=== PATIENT | male | born 1950 | race Caucasian/White ===

== ENCOUNTER 2018-06-18 13:09 | Inpatient (IN) | payer BC, MEDICARE ==
--- NOTE | 2018-06-18 13:10 | PCM.HP ---
H&P History of Present Illness - General Date of Service: 06/18/18 Admit Problem/Dx: Admission Diagnosis/Problem Admission Diagnosis/Problem Osteomyelitis of left foot Source of Information: Patient History Limitations: Reports: No Limitations - History of Present Illness Initial Comments - Free Text/Narative: Patient is here and being admitted to [facility] for IV antibiotics for osteomyelitis of the left foot. He was admitted to [facility] in [facility] on 06/07/18. He has been there since receiving treatment for his osteomyelitis and heel ulcer. He has a stage 4 decubitus ulcer to his left heel, that requires wound vac treatment for healing. he has currently been having wound vac dressing changes MW. He has not pain or concerns with these. Due to history of diabetes and PVD , patient has minimal feeling to his LE. Patient notes that he had a similar ulceration to his left foot about 1.5 years ago. This healed without complication. He has a history of hypertension which is well controlled [facility] medication. As mentioned previously, he has a history of type II diabetes. He currently is not on any medications. He was on Levemir 45units every HS along [facility] Novolog 10u in the AM. He states that these medications were stopped due to BS being 100-140 during accu-checks. He takes no oral diabetic medication. We will continue to monitor his blood sugars and use sliding scale insulin as needed for elevated readings. Patient has some diarrhea since being in the hospital. This started at the onset of admission and initiation of oral antibiotics. He had stool cultures completed at [place] that returned negative for pathology. He was switched to IV antibiotics, placed on a pro-biotic and fiber supplement. This has helped with the loose stools. Patient will remain in [facility] for 6-8weeks for IV antibiotics and wound vac care. - Related Data Allergies/Adverse Reactions: Allergies Allergy/AdvReac Type Severity Reaction Status Date / Time atorvastatin [From Lipitor] Allergy Cannot Verified 06/18/18 11:11 Remember Penicillins Allergy Cannot Verified 06/18/18 11:11 Remember rosuvastatin [From Crestor] Allergy Cannot Verified 06/18/18 11:11 Remember simvastatin Allergy Cannot Verified 06/18/18 11:11 Remember Home Medications: Home Meds Acetaminophen/HYDROcodone [[place] 325-5 MG] 1 - 2 tab PO Q8H PRN 06/18/18 [ History] Multivitamin/Iron/Folic Acid [Centrum Adults Tablet] 1 tab PO DAILY 06/18/18 [ History] RX: Aspirin 81 mg PO DAILY 06/18/18 [History] RX: Carvedilol 25 mg PO BIDMEALS 06/18/18 [History] RX: Doxazosin [Cardura] 1 tab PO DAILY 06/18/18 [History] RX: Ferrous Sulfate 1 tab PO DAILY 06/18/18 [History] RX: Finasteride 5 mg PO DAILY 06/18/18 [History] RX: Magnesium Chloride [Mag-64] 2 tab PO DAILY 06/18/18 [History] RX: Nystatin 15 gm TP TID 06/18/18 [History] RX: Pantoprazole Sodium 40 mg PO BIDAC 06/18/18 [History] RX: Potassium Chloride [Klor-Con M20] 1 tab PO DAILY 06/18/18 [History] RX: Saccharomyces Boulardii [Florastor] 1 tab PO BID 06/18/18 [History] RX: Torsemide 20 mg PO BID 06/18/18 [History] RX: hydrALAZINE [Apresoline] 50 mg PO TID 06/18/18 [History] amLODIPine Besylate [Norvasc] 10 mg PO DAILY 06/18/18 [History] Past Medical History HEENT History: Reports: Impaired Vision Other HEENT History: glasses Cardiovascular History: Reports: None, Hypertension Respiratory History: Reports: None Gastrointestinal History: Reports: GERD, Hemorrhoids Genitourinary History: Reports: Chronic Renal Insuffiency Musculoskeletal History: Reports: Arthritis Neurological History: Reports: Neuropathy, Diabetic Psychiatric History: Reports: None Endocrine/Metabolic History: Reports: Diabetes, Type II, Obesity/BMI 30+ Hematologic History: Reports: Anemia Dermatologic History: Reports: Other (See Below) Other Dermatologic History: 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 - Infectious Disease History Infectious Disease History: Reports: Other (See Below) (Osteomyelitis to LLE) - Past Surgical History HEENT Surgical History: Reports: LASIK Other HEENT Surgeries/Procedures: left eye GI Surgical History: Reports: Colonoscopy Neurological Surgical History: Reports: C-Spine, Spinal Fusion Other Neurological Surgeries/Procedures: C-4-5-6 fusion, mesh tx 2005 Musculoskeletal Surgical History: Reports: Other (See Below) Other Musculoskeletal Surgeries/Procedures:: right foot 5th toe ampution 2016 Social & Family History - Family History Family Medical History: Unobtainable - Caffeine Use Caffeine Use: Reports: Coffee H&P Review of Systems - Review of Systems: Review Of Systems: See Below General: Reports: No Symptoms HEENT: Reports: No Symptoms, Glasses Pulmonary: Reports: No Symptoms Cardiovascular: Reports: No Symptoms Gastrointestinal: Reports: Diarrhea Genitourinary: Reports: No Symptoms Musculoskeletal: Reports: No Symptoms Skin: Reports: Wound Psychiatric: Reports: No Symptoms Neurological: Reports: No Symptoms Exam - Exam Exam: See Below - Exam General: Alert, Oriented, Cooperative HEENT: Conjunctiva Clear, EOMI, Hearing Intact, Mucosa Moist & [place], Pupils Equal, Pupils Reactive Neck: Supple, Trachea Midline Lungs: Clear to Auscultation, Normal Respiratory Effort Cardiovascular: Regular Rate, Regular Rhythm, Normal S1, Normal S2 GI/Abdominal Exam: Normal Bowel Sounds, Soft, Non-Tender, No Distention (Male) Exam: Deferred Rectal (Males) Exam: Deferred Back Exam: Normal Inspection Extremities: Non-Tender, Pedal Edema Peripheral Pulses: 2+: Radial (L), Radial (R), Posterior Tibial (L), Posterior Tibial (R), Dorsalis Pedis (L), Dorsalis Pedis (R) Skin: Warm, Dry, Intact, Wound Neurological: Normal Speech, Normal Tone Neuro Extensive - Mental Status: Alert, Oriented x3, Normal Mood/Affect, Normal Cognition, Memory Intact Psychiatric: Alert, Normal Affect, Normal Mood *Q Meaningful Use (ADM) - VTE Risk Assess *Q Each Risk Factor Represents 1 Point: Swollen Legs, Current, Obesity ( BMI > 25 kg/m2), Congestive heart failure (CHF) Total Score 1 Point Risk Factors: 3 Each Risk Factor Represents 2 Points: Age 60 - 74 Years Total Score 2 Point Risk Factors: 2 - Problem List (1) Osteomyelitis SNOMED Code(s): 63799751 ICD Code: M86.9 - OSTEOMYELITIS, UNSPECIFIED Status: Acute Priority: High Current Visit: Yes Onset Date: ~06/07/18 Problem Details: Continue to complete IV antibiotics per orders of ID at [place]. Wound vac will be in place and changed on MWF. measurements and healing progress will be monitored. Patient will remain asymptomatic for further signs of infection. Qualifiers: Osteomyelitis type: other chronic Osteomyelitis location: foot Laterality : left Qualified Code(s): M86.672 - Other chronic osteomyelitis, left ankle and foot (2) Hypertension SNOMED Code(s): 39002161 ICD Code: I10 - ESSENTIAL (PRIMARY) HYPERTENSION Status: Acute Priority: High Current Visit: Yes Problem Details: maintain a blood pressure of less than 140/90 with prescribed medication. Qualifiers: Hypertension type: essential hypertension Qualified Code(s): I10 - Essential (primary) hypertension (3) Diabetes SNOMED Code(s): 88070113 ICD Code: E11.9 - TYPE 2 DIABETES MELLITUS WITHOUT COMPLICATIONS Status: Acute Priority: High Current Visit: Yes Problem Details: Monitor patient' s blood sugars QID. Use sliding scale insulin as needed for elevated BS. patient is no longer on insulin, per discharge orders. His BS were 100-140 without medication. We will monitor this. Qualifiers: Diabetes mellitus type: type 2 Diabetes mellitus mcc insulin use: with supervisor word processing use Diabetes mellitus complication status: with skin complications Diabetes mellitus complication detail: with foot ulcer Qualified Code(s): E11.621 - Type 2 diabetes mellitus with foot ulcer; L97.509 - Non-pressure chronic ulcer of other part of unspecified foot with unspecified severity; Z79.4 - residential (current) use of insulin Problem List Initiated/Reviewed/Updated: No Orders Last 24hrs: Active Orders 24 hr Category Date Time Status Patient Status [ADT] Routine ADT 06/18/18 12:41 Ordered Height and Weight [RC] PER UNIT ROUTINE Care 06/18/18 12:48 Ordered Intake and Output [RC] ASDIRECTED Care 06/18/18 12:40 Ordered May Shower [RC] ASDIRECTED Care 06/18/18 12:40 Ordered Oxygen Therapy [RC] PRN Care 06/18/18 12:41 Ordered Up With Assistance [RC] ASDIRECTED Care 06/18/18 12:40 Ordered VTE/DVT Education [RC] PER UNIT ROUTINE Care 06/18/18 12:41 Ordered Vital Signs [RC] PER UNIT ROUTINE Care 06/18/18 12:41 Ordered OT Evaluation and Treatment [CONS] Routine Cons 06/18/18 12:40 Ordered PT Evaluation and Treatment [CONS] Routine Cons 06/18/18 12:40 Ordered [employer] Diet [DIET] Diet 06/18/18 Dinner Ordered Resuscitation Status Routine Resus Stat 06/18/18 12:40 Ordered
[2018-06-18] MEDS: Nystatin Topical Powder 15 GM Bottle TOP SCH (17:22)
[2018-06-18] MEDS: Lactobacillus Rhamnosus GG (Probiotic) Cap PO SCH (17:22)
[2018-06-18] MEDS: Pantoprazole 40 MG Tab.CR PO SCH (17:23)
[2018-06-18] MEDS: hydrALAZINE 50 MG Tab PO SCH (17:23)
[2018-06-18] MEDS: Carvedilol 25 MG Tab PO SCH (17:23)
[2018-06-18] MEDS: Insulin Regular, Human 100 Units/ML 3 ML Vial SUBCUT SCH (20:54)
[2018-06-18] MEDS: Sodium Chloride 0.9% 10 ML Syringe FLUSH SCH (20:55)
[2018-06-19] MEDS: Potassium Chloride 20 MEQ Tab.ER PO SCH (08:05)
[2018-06-19] MEDS: amLODIPine 5 MG Tab PO SCH (08:05)
[2018-06-19] MEDS: Finasteride 5 MG Tab PO SCH (08:06)
[2018-06-19] MEDS: hydrALAZINE 50 MG Tab PO SCH ×3 (08:06→17:35)
[2018-06-19] MEDS: Carvedilol 25 MG Tab PO SCH ×2 (08:06→17:32)
[2018-06-19] MEDS: Doxazosin 4 MG Tab PO SCH (08:07)
[2018-06-19] MEDS: Aspirin 81 MG Tab.Chew PO SCH (08:07)
[2018-06-19] MEDS: Multivitamin Tab PO SCH (08:07)
[2018-06-19] MEDS: Lactobacillus Rhamnosus GG (Probiotic) Cap PO SCH ×2 (08:07→17:30)
[2018-06-19] MEDS: Ferrous Sulfate 325 MG Tab PO SCH (08:07)
[2018-06-19] MEDS: Pantoprazole 40 MG Tab.CR PO SCH ×2 (08:07→17:30)
[2018-06-19] MEDS: Sodium Chloride 0.9% 10 ML Syringe FLUSH SCH ×4 (08:09→20:43)
[2018-06-19] MEDS: Nystatin Topical Powder 15 GM Bottle TOP SCH ×3 (08:09→17:31)
[2018-06-19] MEDS: Insulin Regular, Human 100 Units/ML 3 ML Vial SUBCUT SCH ×5 (08:11→20:40)
[2018-06-19] MEDS ORDERED: Ertapenem 1 GM Vial IM SCH (12:00)
[2018-06-19] MEDS: Ertapenem 1 GM in Sodium Chloride 0.9% 100 ML IV SCH (12:05)
[2018-06-19] MEDS: Magnesium Oxide 400 MG Tab PO SCH (12:39)
[2018-06-19] MEDS: Linezolid 600 MG in Premix Bag 1 BAG IV SCH (20:39)
[2018-06-20] MEDS: Magnesium Oxide 400 MG Tab PO SCH (07:22)
[2018-06-20] MEDS: Nystatin Topical Powder 15 GM Bottle TOP SCH ×3 (07:22→17:39)
[2018-06-20] MEDS: Insulin Regular, Human 100 Units/ML 3 ML Vial SUBCUT SCH ×4 (07:22→20:59)
[2018-06-20] MEDS: Lactobacillus Rhamnosus GG (Probiotic) Cap PO SCH ×2 (07:23→17:38)
[2018-06-20] MEDS: Multivitamin Tab PO SCH (07:23)
[2018-06-20] MEDS: Potassium Chloride 20 MEQ Tab.ER PO SCH (07:24)
[2018-06-20] MEDS: Finasteride 5 MG Tab PO SCH (07:24)
[2018-06-20] MEDS: Pantoprazole 40 MG Tab.CR PO SCH ×2 (07:24→17:38)
[2018-06-20] MEDS: Carvedilol 25 MG Tab PO SCH ×2 (07:24→17:37)
[2018-06-20] MEDS: hydrALAZINE 50 MG Tab PO SCH ×3 (07:25→17:38)
[2018-06-20] MEDS: amLODIPine 5 MG Tab PO SCH (07:25)
[2018-06-20] MEDS: Ferrous Sulfate 325 MG Tab PO SCH (07:25)
[2018-06-20] MEDS: Aspirin 81 MG Tab.Chew PO SCH (07:25)
[2018-06-20] MEDS: Doxazosin 4 MG Tab PO SCH (07:26)
[2018-06-20] MEDS: Sodium Chloride 0.9% 10 ML Syringe FLUSH SCH ×5 (07:29→20:54)
[2018-06-20] MEDS: Linezolid 600 MG in Premix Bag 1 BAG IV SCH ×2 (07:29→20:52)
[2018-06-20] MEDS: Ertapenem 1 GM in Sodium Chloride 0.9% 100 ML IV SCH (11:45)
[2018-06-21 07:33] LABS: HEMOGLOBIN A1C 6.2 % (4.3-5.7)
[2018-06-21] MEDS: Linezolid 600 MG in Premix Bag 1 BAG IV SCH ×2 (08:48→20:42)
[2018-06-21] MEDS: Finasteride 5 MG Tab PO SCH (08:49)
[2018-06-21] MEDS: Potassium Chloride 20 MEQ Tab.ER PO SCH (08:49)
[2018-06-21] MEDS: Carvedilol 25 MG Tab PO SCH ×2 (08:49→17:44)
[2018-06-21] MEDS: amLODIPine 5 MG Tab PO SCH (08:49)
[2018-06-21] MEDS: Ferrous Sulfate 325 MG Tab PO SCH (08:49)
[2018-06-21] MEDS: Sodium Chloride 0.9% 10 ML Syringe FLUSH SCH ×4 (08:49→20:42)
[2018-06-21] MEDS: Doxazosin 4 MG Tab PO SCH (08:50)
[2018-06-21] MEDS: Multivitamin Tab PO SCH (08:50)
[2018-06-21] MEDS: Lactobacillus Rhamnosus GG (Probiotic) Cap PO SCH ×2 (08:50→17:44)
[2018-06-21] MEDS: hydrALAZINE 50 MG Tab PO SCH ×3 (08:50→17:44)
[2018-06-21] MEDS: Pantoprazole 40 MG Tab.CR PO SCH ×2 (08:50→17:43)
[2018-06-21] MEDS: Aspirin 81 MG Tab.Chew PO SCH (08:50)
[2018-06-21] MEDS: Insulin Regular, Human 100 Units/ML 3 ML Vial SUBCUT SCH ×4 (08:51→20:42)
[2018-06-21] MEDS: Nystatin Topical Powder 15 GM Bottle TOP SCH ×3 (08:52→17:45)
[2018-06-21] MEDS: Magnesium Oxide 400 MG Tab PO SCH (08:52)
[2018-06-21] MEDS: Ertapenem 1 GM in Sodium Chloride 0.9% 100 ML IV SCH (15:03)
[2018-06-22] MEDS: Linezolid 600 MG in Premix Bag 1 BAG IV SCH ×2 (08:07→19:40)
[2018-06-22] MEDS: Pantoprazole 40 MG Tab.CR PO SCH ×2 (08:08→17:54)
[2018-06-22] MEDS: Sodium Chloride 0.9% 10 ML Syringe FLUSH SCH ×3 (08:08→19:42)
[2018-06-22] MEDS: Nystatin Topical Powder 15 GM Bottle TOP SCH ×3 (08:08→17:55)
[2018-06-22] MEDS: hydrALAZINE 50 MG Tab PO SCH ×4 (08:09→17:54)
[2018-06-22] MEDS: Potassium Chloride 20 MEQ Tab.ER PO SCH (08:09)
[2018-06-22] MEDS: amLODIPine 5 MG Tab PO SCH (08:11)
[2018-06-22] MEDS: Carvedilol 25 MG Tab PO SCH ×2 (08:11→17:54)
[2018-06-22] MEDS: Ferrous Sulfate 325 MG Tab PO SCH (08:11)
[2018-06-22] MEDS: Finasteride 5 MG Tab PO SCH (08:12)
[2018-06-22] MEDS: Aspirin 81 MG Tab.Chew PO SCH (08:12)
[2018-06-22] MEDS: Multivitamin Tab PO SCH (08:12)
[2018-06-22] MEDS: Lactobacillus Rhamnosus GG (Probiotic) Cap PO SCH ×2 (08:12→17:53)
[2018-06-22] MEDS: Doxazosin 4 MG Tab PO SCH (08:12)
[2018-06-22] MEDS: Magnesium Oxide 400 MG Tab PO SCH (08:13)
[2018-06-22] MEDS: Insulin Regular, Human 100 Units/ML 3 ML Vial SUBCUT SCH ×4 (08:13→20:03)
[2018-06-22] MEDS: Ertapenem 1 GM in Sodium Chloride 0.9% 100 ML IV SCH (12:50)
[2018-06-23] MEDS: Multivitamin Tab PO SCH (08:45)
[2018-06-23] MEDS: Sodium Chloride 0.9% 10 ML Syringe FLUSH SCH (08:45)
[2018-06-23] MEDS: Doxazosin 4 MG Tab PO SCH (08:45)
[2018-06-23] MEDS: amLODIPine 5 MG Tab PO SCH (08:45)
[2018-06-23] MEDS: Aspirin 81 MG Tab.Chew PO SCH (08:46)
[2018-06-23] MEDS: Pantoprazole 40 MG Tab.CR PO SCH ×2 (08:46→17:13)
[2018-06-23] MEDS: Ferrous Sulfate 325 MG Tab PO SCH (08:46)
[2018-06-23] MEDS: Potassium Chloride 20 MEQ Tab.ER PO SCH (08:46)
[2018-06-23] MEDS: Magnesium Oxide 400 MG Tab PO SCH (08:46)
[2018-06-23] MEDS: hydrALAZINE 50 MG Tab PO SCH ×3 (08:46→17:13)
[2018-06-23] MEDS: Lactobacillus Rhamnosus GG (Probiotic) Cap PO SCH ×2 (08:47→17:12)
[2018-06-23] MEDS: Finasteride 5 MG Tab PO SCH (08:47)
[2018-06-23] MEDS: Carvedilol 25 MG Tab PO SCH ×2 (08:47→17:12)
[2018-06-23] MEDS: Insulin Regular, Human 100 Units/ML 3 ML Vial SUBCUT SCH ×4 (08:48→20:38)
[2018-06-23] MEDS: Nystatin Topical Powder 15 GM Bottle TOP SCH ×3 (08:48→20:37)
[2018-06-23] MEDS: Linezolid 600 MG in Premix Bag 1 BAG IV SCH ×2 (08:49→20:37)
[2018-06-23] MEDS: Ertapenem 1 GM in Sodium Chloride 0.9% 100 ML IV SCH (12:32)
[2018-06-24] MEDS: Sodium Chloride 0.9% 10 ML Syringe FLUSH SCH ×2 (08:42→08:47)
[2018-06-24] MEDS: Linezolid 600 MG in Premix Bag 1 BAG IV SCH ×2 (08:42→20:55)
[2018-06-24] MEDS: amLODIPine 5 MG Tab PO SCH (08:43)
[2018-06-24] MEDS: Multivitamin Tab PO SCH (08:43)
[2018-06-24] MEDS: Insulin Regular, Human 100 Units/ML 3 ML Vial SUBCUT SCH ×4 (08:43→20:55)
[2018-06-24] MEDS: Aspirin 81 MG Tab.Chew PO SCH (08:43)
[2018-06-24] MEDS: Doxazosin 4 MG Tab PO SCH (08:44)
[2018-06-24] MEDS: Ferrous Sulfate 325 MG Tab PO SCH (08:44)
[2018-06-24] MEDS: hydrALAZINE 50 MG Tab PO SCH ×3 (08:44→18:27)
[2018-06-24] MEDS: Lactobacillus Rhamnosus GG (Probiotic) Cap PO SCH ×2 (08:44→18:26)
[2018-06-24] MEDS: Magnesium Oxide 400 MG Tab PO SCH (08:44)
[2018-06-24] MEDS: Potassium Chloride 20 MEQ Tab.ER PO SCH (08:44)
[2018-06-24] MEDS: Finasteride 5 MG Tab PO SCH (08:44)
[2018-06-24] MEDS: Pantoprazole 40 MG Tab.CR PO SCH ×2 (08:45→18:26)
[2018-06-24] MEDS: Nystatin Topical Powder 15 GM Bottle TOP SCH ×3 (08:45→18:28)
[2018-06-24] MEDS: Carvedilol 25 MG Tab PO SCH ×2 (08:45→18:26)
[2018-06-24] MEDS: Ertapenem 1 GM in Sodium Chloride 0.9% 100 ML IV SCH (12:13)
[2018-06-25] MEDS: Linezolid 600 MG in Premix Bag 1 BAG IV SCH ×2 (07:47→20:51)
[2018-06-25] MEDS: amLODIPine 5 MG Tab PO SCH (07:47)
[2018-06-25] MEDS: Aspirin 81 MG Tab.Chew PO SCH (07:48)
[2018-06-25] MEDS: Carvedilol 25 MG Tab PO SCH ×2 (07:48→17:25)
[2018-06-25] MEDS: Ferrous Sulfate 325 MG Tab PO SCH (07:48)
[2018-06-25] MEDS: Multivitamin Tab PO SCH (07:48)
[2018-06-25] MEDS: Finasteride 5 MG Tab PO SCH (07:48)
[2018-06-25] MEDS: hydrALAZINE 50 MG Tab PO SCH ×3 (07:48→17:25)
[2018-06-25] MEDS: Magnesium Oxide 400 MG Tab PO SCH (07:48)
[2018-06-25] MEDS: Pantoprazole 40 MG Tab.CR PO SCH ×2 (07:48→17:25)
[2018-06-25] MEDS: Lactobacillus Rhamnosus GG (Probiotic) Cap PO SCH ×2 (07:48→17:25)
[2018-06-25] MEDS: Sodium Chloride 0.9% 10 ML Syringe FLUSH SCH ×3 (07:49→20:58)
[2018-06-25] MEDS: Insulin Regular, Human 100 Units/ML 3 ML Vial SUBCUT SCH ×4 (07:49→20:52)
[2018-06-25] MEDS: Potassium Chloride 20 MEQ Tab.ER PO SCH (07:49)
[2018-06-25] MEDS: Doxazosin 4 MG Tab PO SCH (07:49)
[2018-06-25] MEDS: Nystatin Topical Powder 15 GM Bottle TOP SCH ×3 (08:02→20:51)
[2018-06-25] MEDS: Ertapenem 1 GM in Sodium Chloride 0.9% 100 ML IV SCH (12:15)
[2018-06-25] MEDS ORDERED: Nystatin Topical Powder 15 GM Bottle TOP PRN (23:06)
[2018-06-26] MEDS: Doxazosin 4 MG Tab PO SCH (08:23)
[2018-06-26] MEDS: Multivitamin Tab PO SCH (08:23)
[2018-06-26] MEDS: Aspirin 81 MG Tab.Chew PO SCH (08:24)
[2018-06-26] MEDS: Finasteride 5 MG Tab PO SCH (08:24)
[2018-06-26] MEDS: Lactobacillus Rhamnosus GG (Probiotic) Cap PO SCH ×2 (08:24→17:17)
[2018-06-26] MEDS: Ferrous Sulfate 325 MG Tab PO SCH (08:24)
[2018-06-26] MEDS: Magnesium Oxide 400 MG Tab PO SCH (08:24)
[2018-06-26] MEDS: amLODIPine 5 MG Tab PO SCH (08:24)
[2018-06-26] MEDS: Potassium Chloride 20 MEQ Tab.ER PO SCH (08:24)
[2018-06-26] MEDS: Linezolid 600 MG in Premix Bag 1 BAG IV SCH ×2 (08:25→21:17)
[2018-06-26] MEDS: Carvedilol 25 MG Tab PO SCH ×2 (08:25→17:18)
[2018-06-26] MEDS: Pantoprazole 40 MG Tab.CR PO SCH ×2 (08:25→17:18)
[2018-06-26] MEDS: hydrALAZINE 50 MG Tab PO SCH ×3 (08:25→17:17)
[2018-06-26] MEDS: Sodium Chloride 0.9% 10 ML Syringe FLUSH SCH ×3 (08:26→21:18)
[2018-06-26] MEDS: Insulin Regular, Human 100 Units/ML 3 ML Vial SUBCUT SCH ×4 (08:26→21:18)
[2018-06-26] MEDS ORDERED: Lactated Ringers 1,000 ML IV SCH (12:00)
--- NOTE | 2018-06-26 14:05 | PCM.SN ---
- Free Text/Narrative Note: Per the report of the nursing staff, patient is having auditory and visual hallucinations. he is seeing people who are not there and hearing dog barking when nursing staff report the room is quiet. Please refer to their documentation as well. Call was placed to Infectious Disease at [facility] in [place] to discuss adverse reaction to medication. ID provider thought this may be related to the Invanz, as hallucinations are an adverse reaction. Based on her review of the chart, we decided to discontinue the Invanz and start Metronidazole 500mg TID. These orders are to continue until he follows up with ID in 1 week. We are to monitor his cognition and report any further degeneration to ID for further evaluation. .
[2018-06-26] MEDS: metroNIDAZOLE 500 MG Tab PO SCH (17:18)
[2018-06-27] MEDS: amLODIPine 5 MG Tab PO SCH (08:13)
[2018-06-27] MEDS: Finasteride 5 MG Tab PO SCH (08:14)
[2018-06-27] MEDS: Magnesium Oxide 400 MG Tab PO SCH (08:14)
[2018-06-27] MEDS: Aspirin 81 MG Tab.Chew PO SCH (08:14)
[2018-06-27] MEDS: Doxazosin 4 MG Tab PO SCH (08:14)
[2018-06-27] MEDS: Multivitamin Tab PO SCH (08:14)
[2018-06-27] MEDS: Potassium Chloride 20 MEQ Tab.ER PO SCH (08:14)
[2018-06-27] MEDS: Ferrous Sulfate 325 MG Tab PO SCH (08:14)
[2018-06-27] MEDS: Pantoprazole 40 MG Tab.CR PO SCH (08:14)
[2018-06-27] MEDS: Lactobacillus Rhamnosus GG (Probiotic) Cap PO SCH (08:15)
[2018-06-27] MEDS: Carvedilol 25 MG Tab PO SCH (08:15)
[2018-06-27] MEDS: hydrALAZINE 50 MG Tab PO SCH (08:15)
[2018-06-27] MEDS: metroNIDAZOLE 500 MG Tab PO SCH (08:16)
[2018-06-27] MEDS: Insulin Regular, Human 100 Units/ML 3 ML Vial SUBCUT SCH (08:16)
[2018-06-27] MEDS: Linezolid 600 MG in Premix Bag 1 BAG IV SCH (08:16)
[2018-06-27 08:17] VITALS: BP 181/88
[2018-06-27] MEDS: Sodium Chloride 0.9% 10 ML Syringe FLUSH SCH (08:17)
[2018-06-27] MEDS ORDERED: Lactated Ringers 1,000 ML IV SCH (11:00)
--- NOTE | 2018-06-27 14:24 | PCM.DCSUM1 ---
Discharge Summary - Hospital Course Free Text/Narrative:: Patient was admitted for [facility] care on 06/18/18. His diagnoses were osteomyelitis with wound vac application to the left heel wound. He was receiving Zyvox and Invanz for IV antibiotics through his PICC line. He was tolerating these well. When he arrives, he was asymptomatic. He was cognitively intact without any physical complaints. Over the last 3 days, he started having visual and auditory hallucinations. ID was consulted at [facility] and discontinued the Invanz as this may be an adverse reaction. We were to monitor cognitive status for improvement. He has slowly continued to decline cognitively with continued hallucinations. He was thought to have some left sided weakness. A CT of head was completed to rule out stroke like symptoms. CT scan was negative. Abnormal labs show elevated D-dimer which would be related to IV antibiotics and wound. BNP was elevated as well, creatitine was high but this is his normal. We reviewed case with ID and ER physician at [facility] in [place]. Both of them agreed that he would benefit from further evaluation with imaging we don't have available here due to creatinine level. Patient will be transferred by ambulance to ER at [facility], they are aware. Diagnosis: Stroke: No - Discharge Data Discharge Date: 06/27/18 Discharge Disposition: DC/Tfer to Acute Hospital 02 Condition: - Discharge Diagnosis/Problem(s) (1) Osteomyelitis SNOMED Code(s): 69299243 ICD Code: M86.9 - OSTEOMYELITIS, UNSPECIFIED Status: Acute Priority: High Onset Date: ~06/07/18 Problem Details: Continue to complete IV antibiotics per orders of ID at [place]. Wound vac will be in place and changed on [facility]. measurements and healing progress will be monitored. Patient will remain asymptomatic for further signs of infection. Qualifiers: Osteomyelitis type: other chronic Osteomyelitis location: foot Laterality : left Qualified Code(s): M86.672 - Other chronic osteomyelitis, left ankle and foot (2) Hypertension SNOMED Code(s): 67847167 ICD Code: I10 - ESSENTIAL (PRIMARY) HYPERTENSION Status: Acute Priority: High Problem Details: maintain a blood pressure of less than 140/90 with prescribed medication. Qualifiers: Hypertension type: essential hypertension Qualified Code(s): I10 - Essential (primary) hypertension (3) Diabetes SNOMED Code(s): 81437235 ICD Code: E11.9 - TYPE 2 DIABETES MELLITUS WITHOUT COMPLICATIONS Status: Acute Priority: High Problem Details: Monitor patient's blood sugars QID. Use sliding scale insulin as needed for elevated BS. patient is no longer on insulin, per discharge orders. His BS were 100-140 without medication. We will monitor this. Qualifiers: Diabetes mellitus type: type 2 Diabetes mellitus internet retailer insulin use: with internet retailer use Diabetes mellitus complication status: with skin complications Diabetes mellitus complication detail: with foot ulcer Qualified Code(s): E11.621 - Type 2 diabetes mellitus with foot ulcer; L97.509 - Non-pressure chronic ulcer of other part of unspecified foot with unspecified severity; Z79.4 - prison (current) use of insulin - Patient Summary/Data Consults: Consultations 06/18/18 12:40 OT Evaluation and Treatment [CONS] Routine PT Evaluation and Treatment [CONS] Routine - Patient Instructions Diet: Regular Diet as Tolerated Activity: As Tolerated Driving: Do Not Drive Showering/Bathing: May Shower - Discharge Plan *PRESCRIPTION DRUG MONITORING PROGRAM REVIEWED*: Not Applicable *COPY OF PRESCRIPTION DRUG MONITORING REPORT IN PATIENT MIL[place]: Not Applicable Home Medications: Home Meds Acetaminophen/HYDROcodone [[place] 325-5 MG] 1 - 2 tab PO Q8H PRN 06/18/18 [ History] Aspirin 81 mg PO DAILY 06/18/18 [History] Carvedilol 25 mg PO BIDMEALS 06/18/18 [History] Doxazosin [Cardura] 1 tab PO DAILY 06/18/18 [History] Ertapenem [INVanz] 1 gm IM DAILY@1200 06/18/18 [History] Ferrous Sulfate 1 tab PO DAILY 06/18/18 [History] Finasteride 5 mg PO DAILY 06/18/18 [History] Linezolid [Zyvox] 600 mg IV Q12HR 06/18/18 [History] Magnesium Chloride [Mag-64] 2 tab PO DAILY 06/18/18 [History] Multivitamin/Iron/Folic Acid [Centrum Adults Tablet] 1 tab PO DAILY 06/18/18 [ History] Nystatin 15 gm TP TID 06/18/18 [History] Pantoprazole Sodium 40 mg PO BIDAC 06/18/18 [History] Potassium Chloride [Klor-Con M20] 1 tab PO DAILY 06/18/18 [History] Saccharomyces Boulardii [Florastor] 1 tab PO BID 06/18/18 [History] Sodium Chloride 0.9% [Saline Flush] 10 ml FLUSH ASDIRECTED 06/18/18 [History] Torsemide 20 mg PO BID 06/18/18 [History] amLODIPine Besylate [Norvasc] 10 mg PO DAILY 06/18/18 [History] hydrALAZINE [Apresoline] 50 mg PO TID 06/18/18 [History] - Discharge Summary/Plan Comment DC Time >30 min.: No - General Info Date of Service: 06/27/18 Functional Status: Reports: Pain Controlled, Tolerating Diet - Review of Systems General: Reports: No Symptoms HEENT: Reports: Visual Changes Pulmonary: Reports: No Symptoms Cardiovascular: Reports: No Symptoms Gastrointestinal: Reports: No Symptoms Genitourinary: Reports: No Symptoms Musculoskeletal: Reports: No Symptoms Skin: Reports: No Symptoms Neurological: Reports: Confusion, Weakness Psychiatric: Reports: Confusion, Hallucinations - Patient Data Vitals - Most Recent: Last Vital Signs Temp 97.9 F 06/27/18 08:00 Pulse 89 06/27/18 08:15 Resp 19 06/27/18 08:00 BP 181/88 H 06/27/18 08:15 Pulse Ox 94 L 06/27/18 08:00 Weight - Most Recent: 260 lb 4.796 oz I&O - Last 24 hours: Intake & Output 06/26/18 06/27/18 06/27/18 22:59 06:59 14:59 Intake Total 1910 360 Output Total 500 600 Balance 1410 -600 360 Lab Results - Last 24 hrs: Laboratory Results - last 24 hr 06/26/18 06/26/18 06/27/18 Range/Units 16:39 20:24 07:39 WBC (4.0-10.2) K/uL RBC (4.33-5.41) M/uL Hgb (13.1-16.8) g/dL Hct (39.0-49.0) % MCV (84.0-98.0) fL MCH (28.2-33.3) pg MCHC (31.7-36.0) g/dL RDW (11.2-14.1) % Plt Count (150-350) K/uL Neut % (Auto) (45.0-80.0) % Lymph % (Auto) (10.0-50.0) % [place] % (Auto) (2.0-14.0) % Eos % (Auto) (0.0-5.0) % Baso % (Auto) (0.0-2.0) % Neut # (Auto) (1.40-7.00) K/uL Lymph # (Auto) (0.50-3.50) K/uL [place] # (Auto) (0.00-1.00) K/uL Eos # (Auto) (0.00-0.50) K/uL Baso # (Auto) (0.00-0.20) K/uL D-Dimer, Quantitative (0-400) ng/mL Sodium (136-145) mmol/L Potassium (3.5-5.1) mmol/L Chloride (98-107) mmol/L Carbon Dioxide (21.0-32.0) mmol/L BUN (7-18) mg/dL Creatinine (0.51-1.17) mg/dL Est Cr Clr Drug Dosing mL/min Estimated GFR (MDRD) mL/min Glucose (74-106) mg/dL POC Glucose 89 160 H 79 (65-110) mg/dl Lactic Acid (0.4-2.0) mmol/L Calcium (8.5-10.1) mg/dL NT-Pro-B Natriuret Pep (0-125) pg/mL 06/27/18 06/27/18 06/27/18 Range/Units 08:52 08:52 08:52 WBC 7.3 (4.0-10.2) K/uL RBC 2.78 L (4.33-5.41) M/uL Hgb 8.0 L (13.1-16.8) g/dL Hct 24.5 L* (39.0-49.0) % MCV 88.1 (84.0-98.0) fL MCH 28.8 (28.2-33.3) pg MCHC 32.7 (31.7-36.0) g/dL RDW 15.7 H (11.2-14.1) % Plt Count 206 (150-350) K/uL Neut % (Auto) 67.6 (45.0-80.0) % Lymph % (Auto) 18.5 (10.0-50.0) % [place] % (Auto) 8.1 (2.0-14.0) % Eos % (Auto) 5.1 H (0.0-5.0) % Baso % (Auto) 0.7 (0.0-2.0) % Neut # (Auto) 4.92 (1.40-7.00) K/uL Lymph # (Auto) 1.35 (0.50-3.50) K/uL [place] # (Auto) 0.59 (0.00-1.00) K/uL Eos # (Auto) 0.37 (0.00-0.50) K/uL Baso # (Auto) 0.05 (0.00-0.20) K/uL D-Dimer, Quantitative 790 H (0-400) ng/mL Sodium 142 (136-145) mmol/L Potassium 4.2 (3.5-5.1) mmol/L Chloride 107 (98-107) mmol/L Carbon Dioxide 23.9 (21.0-32.0) mmol/L BUN 21 H (7-18) mg/dL Creatinine 2.43 H (0.51-1.17) mg/dL Est Cr Clr Drug Dosing 31.29 mL/min Estimated GFR (MDRD) 27 mL/min Glucose 120 H (74-106) mg/dL POC Glucose (65-110) mg/dl Lactic Acid (0.4-2.0) mmol/L Calcium 8.5 (8.5-10.1) mg/dL NT-Pro-B Natriuret Pep 1884 H (0-125) pg/mL 06/27/18 06/27/18 Range/Units 08:52 11:41 WBC (4.0-10.2) K/uL RBC (4.33-5.41) M/uL Hgb (13.1-16.8) g/dL Hct (39.0-49.0) % MCV (84.0-98.0) fL MCH (28.2-33.3) pg MCHC (31.7-36.0) g/dL RDW (11.2-14.1) % Plt Count (150-350) K/uL Neut % (Auto) (45.0-80.0) % Lymph % (Auto) (10.0-50.0) % [place] % (Auto) (2.0-14.0) % Eos % (Auto) (0.0-5.0) % Baso % (Auto) (0.0-2.0) % Neut # (Auto) (1.40-7.00) K/uL Lymph # (Auto) (0.50-3.50) K/uL [place] # (Auto) (0.00-1.00) K/uL Eos # (Auto) (0.00-0.50) K/uL Baso # (Auto) (0.00-0.20) K/uL D-Dimer, Quantitative (0-400) ng/mL Sodium (136-145) mmol/L Potassium (3.5-5.1) mmol/L Chloride (98-107) mmol/L Carbon Dioxide (21.0-32.0) mmol/L BUN (7-18) mg/dL Creatinine (0.51-1.17) mg/dL Est Cr Clr Drug Dosing mL/min Estimated GFR (MDRD) mL/min Glucose (74-106) mg/dL POC Glucose 99 (65-110) mg/dl Lactic Acid 1.2 (0.4-2.0) mmol/L Calcium (8.5-10.1) mg/dL NT-Pro-B Natriuret Pep (0-125) pg/mL Med Orders - Current: Current Medications Discontinued Medications Amlodipine Besylate (Norvasc) 10 mg PO DAILY [facility] Last Admin: 06/27/18 08:13 Dose: 10 mg Aspirin (Aspirin) 81 mg PO DAILY [facility] Last Admin: 06/27/18 08:14 Dose: 81 mg Carvedilol (Coreg) 25 mg PO BIDMEALS [facility] Last Admin: 06/27/18 08:15 Dose: 25 mg Doxazosin Mesylate (Cardura) 4 mg PO DAILY [facility] Last Admin: 06/27/18 08:14 Dose: 4 mg Ertapenem (Invanz) 1 gm IM DAILY@1200 [place] Ferrous Sulfate (Ferrous Sulfate) 325 mg PO DAILY [facility] Last Admin: 06/27/18 08:14 Dose: 325 mg Finasteride (Proscar) 5 mg PO DAILY [facility] Last Admin: 06/27/18 08:14 Dose: 5 mg Hydralazine HCl (Apresoline) 50 mg PO TID [facility] Last Admin: 06/27/18 08:15 Dose: 50 mg Linezolid 600 mg/ Premix 300 mls @ 150 mls/hr IV Q12HR [facility] Last Admin: 06/27/18 08:16 Dose: 150 mls/hr Ertapenem 1 gm/ Sodium (Chloride) 100 mls @ 200 mls/hr IV Q24H [facility] Last Admin: 06/25/18 12:15 Dose: 200 mls/hr Lactated Ringer's (Ringers, Lactated) 1,000 mls @ 250 mls/hr IV ASDIRECTED [facility] Stop: 06/26/18 15:59 Last Admin: 06/26/18 12:10 Dose: 250 mls/hr Lactated Ringer's (Ringers, Lactated) 1,000 mls @ 250 mls/hr IV ASDIRECTED [facility] Stop: 06/27/18 12:00 Influenza Virus Vaccine (Pharmacy To Dose - Influenza Vaccine) 1 each IM ONETIME ONE Stop: 06/19/18 08:01 Influenza Virus Vaccine (Fluzone High-Dose Syringe) 180 mcg IM .ONCE ONE Stop: 06/19/18 12:16 Last Admin: 06/19/18 12:37 Dose: 180 mcg Insulin Human Regular (Humulin R) 0 unit SUBCUT QID [facility]; Protocol Last Admin: 06/19/18 16:06 Dose: Not Given Insulin Human Regular (Humulin R) 0 unit SUBCUT 0730,1130,1700,2100 [facility]; Protocol Last Admin: 06/27/18 08:16 Dose: Not Given Lactobacillus Rhamnosus (Culturelle) 1 cap PO BID [facility] Last Admin: 06/27/18 08:15 Dose: 1 cap Linezolid (Zyvox) 600 mg IV Q12HR [facility] Last Admin: 06/19/18 08:09 Dose: 600 mg Magnesium Oxide (Magnesium Oxide) 400 mg PO DAILY [facility] Last Admin: 06/27/18 08:14 Dose: 400 mg Metronidazole (Flagyl) 500 mg PO TID [facility] Last Admin: 06/27/18 08:16 Dose: 500 mg Multivitamins/Minerals/Vitamin C (Tab-A-Mayte) 1 tab PO DAILY [facility] Last Admin: 06/27/18 08:14 Dose: 1 tab Nystatin (Nystop) 0 gm TOP TID [facility] Last Admin: 06/25/18 20:51 Dose: 1 applic Nystatin (Nystop) 0 gm TOP TID PRN PRN Reason: Irritation Last Admin: 06/27/18 08:13 Dose: 1 applic Pantoprazole Sodium (Protonix) 40 mg PO BIDAC [facility] Last Admin: 06/27/18 08:14 Dose: 40 mg Potassium Chloride (Klor-Con M20) 20 meq PO DAILY [facility] Last Admin: 06/27/18 08:14 Dose: 20 meq Sodium Chloride (Saline Flush) 10 ml FLUSH ASDIRECTED [facility] Last Admin: 06/27/18 08:17 Dose: 10 ml Torsemide (Demadex) 20 mg PO BID [facility] Last Admin: 06/27/18 08:13 Dose: 20 mg - Exam General: Reports: Alert, Oriented HEENT: Reports: Pupils Equal, Pupils Reactive Neck: Reports: Supple Lungs: Reports: Clear to Auscultation, Normal Respiratory Effort Cardiovascular: Reports: Regular Rate, Regular Rhythm GI/Abdominal Exam: Normal Bowel Sounds Rectal (Males) Exam: Deferred Wound/Incisions: Reports: Dressing Dry and Intact Psy/Mental Status: Reports: Hallucinations *Q Meaningful Use (DIS) - VTE *Q VTE Mechanical Contraindications *Q: Bilat Sensory Neuropathy
== END 2018-06-27 12:25 | DRG 344 ==
LOC: LL.MS 13:09
PROVIDERS: ADMIT Family Medicine; ATTEND Family Medicine
DX: M86.672 Other chronic osteomyelitis, left ankle and foot (principal); E11.22 Type 2 diabetes mellitus with diabetic chronic kidney disease; E11.51 Type 2 diabetes mellitus with diabetic peripheral angiopathy without gangrene; E11.42 Type 2 diabetes mellitus with diabetic polyneuropathy; L97.429 Non-pressure chronic ulcer of left heel and midfoot with unspecified severity; E11.621 Type 2 diabetes mellitus with foot ulcer; R44.0 Auditory hallucinations; R44.1 Visual hallucinations; T36.1X5A Adverse effect of cephalosporins and other beta-lactam antibiotics, initial encounter; I12.9 Hypertensive chronic kidney disease with stage 1 through stage 4 chronic kidney disease, or unspecified chronic kidney disease; N18.9 Chronic kidney disease, unspecified; H54.7 Unspecified visual loss; K21.9 Gastro-esophageal reflux disease without esophagitis; M19.90 Unspecified osteoarthritis, unspecified site; E66.9 Obesity, unspecified; D64.9 Anemia, unspecified; Z68.36 Body mass index [BMI] 36.0-36.9, adult; Z79.82 Long term (current) use of aspirin; Z79.899 Other long term (current) drug therapy; Z98.1 Arthrodesis status; Z89.421 Acquired absence of other right toe(s); Z79.4 Long term (current) use of insulin
CPT/HCPCS: 36415; 51798; 70450; 80048; 80053; 81001; 82962; 83036; 83605; 83880; 85025; 85379; 90662; 97110-GO; 97110-GP; 97162-GP; 97165-GO; 97530-GO; 97530-GP; 97605; A9270-GY; G0103; J1335; J1815-GY; J2020; J7050; J7120

== ENCOUNTER 2018-07-03 13:40 | Inpatient (IN) | payer BC, MEDICARE ==
--- NOTE | 2018-07-03 14:16 | PCM.HP ---
H&P History of Present Illness - General Date of Service: 07/03/18 Admit Problem/Dx: Admission Diagnosis/Problem Admission Diagnosis/Problem Osteomyelitis of left foot Patient is being admitted for continued treatment of osteomyelitis of the left foot which has a wound vac present. He is currently on Daptomycin 684mg daily and Metronidazole 500mg TID. he is being closely followed by Infectious Disease at [facility]. He has a history of osteomyelitis in the left foot. Last infection was noted to be 1.5 years ago. He is being admitted to [facility] for PT/OT and nursing care. Source of Information: Patient History Limitations: Reports: No Limitations - Related Data Allergies/Adverse Reactions: Allergies Allergy/AdvReac Type Severity Reaction Status Date / Time atorvastatin [From Lipitor] Allergy Cannot Verified 06/18/18 11:11 Remember Penicillins Allergy Cannot Verified 06/18/18 11:11 Remember rosuvastatin [From Crestor] Allergy Cannot Verified 06/18/18 11:11 Remember simvastatin Allergy Cannot Verified 06/18/18 11:11 Remember Home Medications: Home Meds Acetaminophen/HYDROcodone [[place] 325-5 MG] 1 - 2 tab PO Q8H PRN 06/18/18 [ History] Ertapenem [INVanz] 1 gm IM DAILY@1200 06/18/18 [History] Linezolid [Zyvox] 600 mg IV Q12HR 06/18/18 [History] Multivitamin/Iron/Folic Acid [Centrum Adults Tablet] 1 tab PO DAILY 06/18/18 [ History] RX: Aspirin 81 mg PO DAILY 06/18/18 [History] RX: Carvedilol 25 mg PO BIDMEALS 06/18/18 [History] RX: Doxazosin [Cardura] 1 tab PO DAILY 06/18/18 [History] RX: Ferrous Sulfate 1 tab PO DAILY 06/18/18 [History] RX: Finasteride 5 mg PO DAILY 06/18/18 [History] RX: Magnesium Chloride [Mag-64] 2 tab PO DAILY 06/18/18 [History] RX: Nystatin 15 gm TP TID 06/18/18 [History] RX: Pantoprazole Sodium 40 mg PO BIDAC 06/18/18 [History] RX: Potassium Chloride [Klor-Con M20] 1 tab PO DAILY 06/18/18 [History] RX: Saccharomyces Boulardii [Florastor] 1 tab PO BID 06/18/18 [History] RX: Torsemide 20 mg PO BID 06/18/18 [History] RX: hydrALAZINE [Apresoline] 50 mg PO TID 06/18/18 [History] Sodium Chloride 0.9% [Saline Flush] 10 ml FLUSH ASDIRECTED 06/18/18 [History] amLODIPine Besylate [Norvasc] 10 mg PO DAILY 06/18/18 [History] Past Medical History HEENT History: Reports: Impaired Vision Other HEENT History: glasses Cardiovascular History: Reports: None, Hypertension Respiratory History: Reports: None Gastrointestinal History: Reports: GERD, Hemorrhoids Genitourinary History: Reports: Chronic Renal Insuffiency Musculoskeletal History: Reports: Arthritis Neurological History: Reports: Neuropathy, Diabetic Psychiatric History: Reports: None Endocrine/Metabolic History: Reports: Diabetes, Type II, Obesity/BMI 30+ Hematologic History: Reports: Anemia Immunologic History: Reports: None Oncologic (Cancer) History: Reports: None Dermatologic History: Reports: Other (See Below) Other Dermatologic History: 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 - Infectious Disease History Infectious Disease History: Reports: Other (See Below) (Osteomyelitis to LLE) - Past Surgical History HEENT Surgical History: Reports: LASIK Other HEENT Surgeries/Procedures: left eye GI Surgical History: Reports: Colonoscopy Neurological Surgical History: Reports: C-Spine, Spinal Fusion Other Neurological Surgeries/Procedures: C-4-5-6 fusion, mesh tx 2005 Musculoskeletal Surgical History: Reports: Other (See Below) Other Musculoskeletal Surgeries/Procedures:: right foot 5th toe ampution 2016 Social & Family History - Family History Family Medical History: Unobtainable - Caffeine Use Caffeine Use: Reports: Coffee H&P Review of Systems - Review of Systems: Review Of Systems: See Below Exam - Exam Exam: See Below - Exam General: Alert, Oriented HEENT: Conjunctiva Clear, EOMI, Hearing Intact, Mucosa Moist & [place], Pupils Equal, Pupils Reactive Neck: Supple, Trachea Midline Lungs: Clear to Auscultation, Normal Respiratory Effort Cardiovascular: Regular Rate, Regular Rhythm GI/Abdominal Exam: Normal Bowel Sounds, Soft, Non-Tender (Male) Exam: Deferred Rectal (Males) Exam: Deferred Back Exam: Normal Inspection, Full Range of Motion (does have comedone to mid- thoracic area.) Extremities: Normal Inspection, Other (mild pedal edema) Skin: Warm, Dry, Intact, Wound (LLE) Neurological: Cranial Nerves Intact Neuro Extensive - Mental Status: Alert, Oriented x3, Normal Mood/Affect, Normal Cognition, Memory Intact Psychiatric: Alert, Normal Affect, Normal Mood - Patient Data Result Diagrams: 07/03/18 16:00 07/03/18 16:00 *Q Meaningful Use (ADM) - VTE *Q VTE Mechanical Contraindications *Q: At Risk for Falls - VTE Risk Assess *Q Each Risk Factor Represents 1 Point: Obesity ( BMI > 25 kg/m2) Total Score 1 Point Risk Factors: 1 Each Risk Factor Represents 2 Points: Age 60 - 74 Years Total Score 2 Point Risk Factors: 2 - Problem List (1) Osteomyelitis SNOMED Code(s): 22980016 ICD Code: M86.9 - OSTEOMYELITIS, UNSPECIFIED Status: Acute Priority: High Current Visit: No Onset Date: ~06/07/18 Problem Details: Continue to complete IV antibiotics per orders of ID at [place]. Wound vac will be in place and changed on [facility]. measurements and healing progress will be monitored. Patient will remain asymptomatic for further signs of infection. Qualifiers: Osteomyelitis type: other chronic Osteomyelitis location: foot Laterality : left Qualified Code(s): M86.672 - Other chronic osteomyelitis, left ankle and foot (2) Hypertension SNOMED Code(s): 04707779 ICD Code: I10 - ESSENTIAL (PRIMARY) HYPERTENSION Status: Acute Priority: High Current Visit: No Problem Details: maintain a blood pressure of less than 140/90 with prescribed medication. medications were adjusted at [facility] during recent hospitalization. We will continue to monitor BP Qualifiers: Hypertension type: essential hypertension Qualified Code(s): I10 - Essential (primary) hypertension (3) Diabetes SNOMED Code(s): 50486602 ICD Code: E11.9 - TYPE 2 DIABETES MELLITUS WITHOUT COMPLICATIONS Status: Acute Priority: High Current Visit: No Problem Details: Monitor patient's blood sugars QID. Use sliding scale insulin as needed for elevated BS. patient is no longer on insulin, per discharge orders. His BS were 100-140 without medication. We will monitor this. Qualifiers: Diabetes mellitus type: type 2 Diabetes mellitus [facility] insulin use: with production analyst use Diabetes mellitus complication status: with skin complications Diabetes mellitus complication detail: with foot ulcer Qualified Code(s): E11.621 - Type 2 diabetes mellitus with foot ulcer; L97.509 - Non-pressure chronic ulcer of other part of unspecified foot with unspecified severity; Z79.4 - MCC (current) use of insulin (4) Severe anemia SNOMED Code(s): 452809580 ICD Code: D64.9 - ANEMIA, UNSPECIFIED Status: Acute Current Visit: No Problem Details: will continue to monitor with lab work. He was seen by nephrology at recent appointment. Aranesp injections were started. He will follow up with nephrology (5) Acute renal failure SNOMED Code(s): 43995524 ICD Code: N17.9 - ACUTE KIDNEY FAILURE, UNSPECIFIED Status: Acute Current Visit: No Qualifiers: Acute renal failure type: unspecified Qualified Code(s): N17.9 - Acute kidney failure, unspecified Problem List Initiated/Reviewed/Updated: Yes Orders Last 24hrs: Active Orders 24 hr Category Date Time Status Patient Status [ADT] Routine ADT 07/03/18 13:25 Active Blood Glucose Check, Bedside [RC] BIDAC Care 07/03/18 13:25 Active Dressing Change [Wound Care] [RC] ASDIRECTED Care 07/03/18 13:31 Active Height and Weight [RC] PER UNIT ROUTINE Care 07/03/18 13:27 Active May Shower [RC] ASDIRECTED Care 07/03/18 13:25 Active Oxygen Therapy [RC] PRN Care 07/03/18 13:25 Active Up With Assistance [RC] ASDIRECTED Care 07/03/18 13:25 Active VTE/DVT Education [RC] PER UNIT ROUTINE Care 07/03/18 13:25 Active Vital Signs [RC] PER UNIT ROUTINE Care 07/03/18 13:25 Active OT Evaluation and Treatment [CONS] Routine Cons 07/03/18 13:25 Active PT Evaluation and Treatment [CONS] Routine Cons 07/03/18 13:25 Active 2 Gram Sodium Diet [DIET] Diet 07/03/18 Dinner Active Aspirin Med 07/04/18 08:00 Ordered 81 mg PO DAILY Carvedilol [Coreg] Med 07/03/18 17:30 Ordered 25 mg PO BIDMEALS DAPTOmycin [Cubicin] 684 mg Med 07/03/18 14:00 Ordered Sodium Chloride 0.9% [Normal Saline] 100 ml IV Q24H Doxazosin [Cardura] Med 07/03/18 18:00 Ordered DOSE mg PO BID Ferrous Sulfate Med 07/04/18 08:00 Ordered DOSE mg PO DAILY Finasteride [Proscar] Med 07/04/18 08:00 Ordered 5 mg PO DAILY Losartan [Cozaar] Med 07/04/18 08:00 Ordered 25 mg PO DAILY Magnesium Chloride [Mag-64] Med 07/04/18 08:00 Ordered 2 tab PO DAILY Multivitamin/Iron/Folic Acid [Centrum Adults Tablet] Med 07/04/18 08:00 Ordered 1 tab PO DAILY Nystatin [Nystop] Med 07/03/18 18:00 Ordered 15 gm TOP TID Pantoprazole [ProTONIX] Med 07/03/18 17:30 Ordered 40 mg PO BIDAC Saccharomyces Boulardii Med 07/03/18 18:00 Ordered 1 tab PO BID Torsemide [Torsemide] Med 07/03/18 18:00 Ordered 20 mg PO BID amLODIPine Besylate [Norvasc] Med 07/04/18 08:00 Ordered 10 mg PO DAILY hydrALAZINE [Apresoline] Med 07/03/18 18:00 Ordered 50 mg PO TID metroNIDAZOLE [Flagyl] Med 07/03/18 13:45 Ordered 500 mg PO Q8H Specialty Bed [OM.PC] Routine Oth 07/03/18 13:29 Ordered Weight bearing status [OM.PC] Routine Oth 07/03/18 13:42 Ordered Wound Vac Management [OM.PC] Routine Oth 07/03/18 13:30 Ordered Resuscitation Status Routine Resus Stat 07/03/18 13:25 Ordered Medication Orders Aspirin (Aspirin) 81 mg PO DAILY LOIS Carvedilol (Coreg) 25 mg PO BIDMEALS LOIS Doxazosin Mesylate (Cardura) mg PO BID LOIS Ferrous Sulfate (Ferrous Sulfate) mg PO DAILY LOIS Finasteride (Proscar) 5 mg PO DAILY LOIS Hydralazine HCl (Apresoline) 50 mg PO TID LOIS Daptomycin 684 mg/ Sodium (Chloride) 100 mls @ 200 mls/hr IV Q24H LOIS Losartan Potassium (Cozaar) 25 mg PO DAILY LOIS Metronidazole (Flagyl) 500 mg PO Q8H LOIS Stop: 07/20/18 08:00 Non-Formulary Medication (Amlodipine Besylate [Norvasc]) 10 mg PO DAILY LOIS Non-Formulary Medication (Magnesium Chloride [Mag-64]) 2 tab PO DAILY LOIS Non-Formulary Medication (Multivitamin/Iron/Folic Acid [Centrum Adults Tablet]) 1 tab PO DAILY LOIS Non-Formulary Medication (Saccharomyces Boulardii) 1 tab PO BID LOIS Non-Formulary Medication (Torsemide [Torsemide]) 20 mg PO BID LOIS Nystatin (Nystop) 15 gm TOP TID LOIS Pantoprazole Sodium (Protonix) 40 mg PO BIDAC LOIS
[2018-07-03] MEDS ORDERED: Enoxaparin 40 MG/0.4 ML Syringe SUBCUT SCH (16:00)
[2018-07-03 16:26] LABS: CHLORIDE,CL 110 mmol/L (98-107); SODIUM,NA 144 mmol/L (136-145)
[2018-07-03] MEDS: Pantoprazole 40 MG Tab.CR PO SCH (18:02)
[2018-07-03] MEDS: Doxazosin 4 MG Tab PO SCH (18:02)
[2018-07-03] MEDS: Enoxaparin 40 MG/0.4 ML Syringe SUBCUT SCH (18:05)
[2018-07-03] MEDS: Nystatin Topical Powder 15 GM Bottle TOP SCH (18:05)
[2018-07-03] MEDS: Lactobacillus Rhamnosus GG (Probiotic) Cap PO SCH (18:05)
[2018-07-03] MEDS: Carvedilol 25 MG Tab PO SCH (18:06)
[2018-07-03] MEDS: hydrALAZINE 50 MG Tab PO SCH (20:18)
[2018-07-03] MEDS: metroNIDAZOLE 500 MG Tab PO SCH (20:19)
[2018-07-03] MEDS: Sodium Chloride 0.9% 10 ML Syringe FLUSH SCH (20:20)
[2018-07-04] MEDS: amLODIPine 5 MG Tab PO SCH (07:57)
[2018-07-04] MEDS: Pantoprazole 40 MG Tab.CR PO SCH ×2 (07:58→17:20)
[2018-07-04] MEDS: hydrALAZINE 50 MG Tab PO SCH ×3 (07:58→19:24)
[2018-07-04] MEDS: Carvedilol 25 MG Tab PO SCH ×2 (07:59→17:20)
[2018-07-04] MEDS: metroNIDAZOLE 500 MG Tab PO SCH ×3 (07:59→19:24)
[2018-07-04] MEDS: Doxazosin 4 MG Tab PO SCH ×2 (07:59→17:20)
[2018-07-04] MEDS: Finasteride 5 MG Tab PO SCH (07:59)
[2018-07-04] MEDS: Multivitamin Tab PO SCH (08:00)
[2018-07-04] MEDS: Magnesium Oxide 400 MG Tab PO SCH (08:00)
[2018-07-04] MEDS: Losartan 50 MG Tab PO SCH (08:00)
[2018-07-04] MEDS: Lactobacillus Rhamnosus GG (Probiotic) Cap PO SCH ×2 (08:00→17:20)
[2018-07-04] MEDS: Ferrous Sulfate 325 MG Tab PO SCH (08:00)
[2018-07-04] MEDS: Aspirin 81 MG Tab.Chew PO SCH (08:01)
[2018-07-04] MEDS: Nystatin Topical Powder 15 GM Bottle TOP SCH ×3 (08:03→17:21)
[2018-07-04] MEDS: DAPTOMYCIN IV SCH (10:21)
[2018-07-04] MEDS: SODIUM CHLORIDE 0.9% IV SCH (10:21)
[2018-07-04] MEDS: Sodium Chloride 0.9% 10 ML Syringe FLUSH SCH ×2 (10:22→19:25)
[2018-07-04] MEDS: Sodium Chloride 0.9% 10 ML Syringe FLUSH PRN (10:22)
[2018-07-04] MEDS: Enoxaparin 40 MG/0.4 ML Syringe SUBCUT SCH (17:18)
[2018-07-05] MEDS: hydrALAZINE 50 MG Tab PO SCH ×3 (08:56→19:42)
[2018-07-05] MEDS: Pantoprazole 40 MG Tab.CR PO SCH ×2 (08:56→17:52)
[2018-07-05] MEDS: Carvedilol 25 MG Tab PO SCH ×2 (08:56→17:52)
[2018-07-05] MEDS: Aspirin 81 MG Tab.Chew PO SCH (08:57)
[2018-07-05] MEDS: Doxazosin 4 MG Tab PO SCH ×2 (08:57→17:52)
[2018-07-05] MEDS: Losartan 50 MG Tab PO SCH (08:57)
[2018-07-05] MEDS: metroNIDAZOLE 500 MG Tab PO SCH ×3 (08:58→19:44)
[2018-07-05] MEDS: Ferrous Sulfate 325 MG Tab PO SCH (08:58)
[2018-07-05] MEDS: Lactobacillus Rhamnosus GG (Probiotic) Cap PO SCH ×2 (08:58→17:52)
[2018-07-05] MEDS: Nystatin Topical Powder 15 GM Bottle TOP SCH ×3 (08:59→17:53)
[2018-07-05] MEDS: amLODIPine 5 MG Tab PO SCH (08:59)
[2018-07-05] MEDS: Magnesium Oxide 400 MG Tab PO SCH (08:59)
[2018-07-05] MEDS: Finasteride 5 MG Tab PO SCH (08:59)
[2018-07-05] MEDS: SODIUM CHLORIDE 0.9% IV SCH (09:00)
[2018-07-05] MEDS: Multivitamin Tab PO SCH (09:00)
[2018-07-05] MEDS: DAPTOMYCIN IV SCH (09:00)
[2018-07-05] MEDS: Sodium Chloride 0.9% 10 ML Syringe FLUSH SCH ×3 (09:03→19:45)
[2018-07-05] MEDS: Enoxaparin 40 MG/0.4 ML Syringe SUBCUT SCH (17:52)
[2018-07-06] MEDS: Doxazosin 4 MG Tab PO SCH ×2 (07:28→17:05)
[2018-07-06] MEDS: hydrALAZINE 50 MG Tab PO SCH ×3 (07:28→19:27)
[2018-07-06] MEDS: Multivitamin Tab PO SCH (07:28)
[2018-07-06] MEDS: Magnesium Oxide 400 MG Tab PO SCH (07:28)
[2018-07-06] MEDS: metroNIDAZOLE 500 MG Tab PO SCH ×3 (07:28→19:28)
[2018-07-06] MEDS: Aspirin 81 MG Tab.Chew PO SCH (07:29)
[2018-07-06] MEDS: Finasteride 5 MG Tab PO SCH (07:29)
[2018-07-06] MEDS: Nystatin Topical Powder 15 GM Bottle TOP SCH ×3 (07:29→17:05)
[2018-07-06] MEDS: Pantoprazole 40 MG Tab.CR PO SCH ×2 (07:29→17:06)
[2018-07-06] MEDS: amLODIPine 5 MG Tab PO SCH (07:29)
[2018-07-06] MEDS: Lactobacillus Rhamnosus GG (Probiotic) Cap PO SCH ×2 (07:29→17:06)
[2018-07-06] MEDS: Ferrous Sulfate 325 MG Tab PO SCH (07:29)
[2018-07-06] MEDS: Losartan 50 MG Tab PO SCH (07:29)
[2018-07-06] MEDS: Carvedilol 25 MG Tab PO SCH ×2 (07:29→17:06)
[2018-07-06] MEDS: SODIUM CHLORIDE 0.9% IV SCH (10:46)
[2018-07-06] MEDS: DAPTOMYCIN IV SCH (10:46)
[2018-07-06] MEDS: Sodium Chloride 0.9% 10 ML Syringe FLUSH SCH ×2 (10:47→19:28)
[2018-07-06] MEDS: Sodium Chloride 0.9% 10 ML Syringe FLUSH PRN (10:47)
[2018-07-06] MEDS: Enoxaparin 40 MG/0.4 ML Syringe SUBCUT SCH (17:06)
[2018-07-07] MEDS ORDERED: Acetaminophen 325 MG Tab PO PRN (07:47)
[2018-07-07] MEDS: Acetaminophen 325 MG Tab PO PRN ×2 (08:39→18:03)
[2018-07-07] MEDS: amLODIPine 5 MG Tab PO SCH (08:39)
[2018-07-07] MEDS: Carvedilol 25 MG Tab PO SCH ×2 (08:39→17:53)
[2018-07-07] MEDS: Multivitamin Tab PO SCH (08:39)
[2018-07-07] MEDS: Finasteride 5 MG Tab PO SCH (08:40)
[2018-07-07] MEDS: Lactobacillus Rhamnosus GG (Probiotic) Cap PO SCH ×2 (08:40→17:42)
[2018-07-07] MEDS: Aspirin 81 MG Tab.Chew PO SCH (08:40)
[2018-07-07] MEDS: Magnesium Oxide 400 MG Tab PO SCH (08:40)
[2018-07-07] MEDS: hydrALAZINE 50 MG Tab PO SCH ×3 (08:40→19:31)
[2018-07-07] MEDS: metroNIDAZOLE 500 MG Tab PO SCH ×3 (08:40→19:31)
[2018-07-07] MEDS: Ferrous Sulfate 325 MG Tab PO SCH (08:40)
[2018-07-07] MEDS: Doxazosin 4 MG Tab PO SCH ×2 (08:40→17:54)
[2018-07-07] MEDS: Losartan 50 MG Tab PO SCH (08:40)
[2018-07-07] MEDS: Nystatin Topical Powder 15 GM Bottle TOP SCH ×3 (08:41→17:40)
[2018-07-07] MEDS: Pantoprazole 40 MG Tab.CR PO SCH ×2 (08:41→17:42)
[2018-07-07] MEDS: SODIUM CHLORIDE 0.9% IV SCH (10:38)
[2018-07-07] MEDS: Sodium Chloride 0.9% 10 ML Syringe FLUSH PRN (10:38)
[2018-07-07] MEDS: Sodium Chloride 0.9% 10 ML Syringe FLUSH SCH ×2 (10:38→19:32)
[2018-07-07] MEDS: DAPTOMYCIN IV SCH (10:38)
[2018-07-07] MEDS: Enoxaparin 40 MG/0.4 ML Syringe SUBCUT SCH (17:40)
[2018-07-07] MEDS ORDERED: Sodium Chloride 0.65% Nasal Spray 45 ML Bottle NAS PRN (17:49)
[2018-07-07] MEDS: guaiFENesin/Dextromethorphan 100-10 MG/5 ML Soln 10 ML Cup PO PRN (18:03)
[2018-07-08] MEDS: Acetaminophen 325 MG Tab PO PRN ×2 (04:34→20:01)
[2018-07-08] MEDS: Finasteride 5 MG Tab PO SCH (08:22)
[2018-07-08] MEDS: Magnesium Oxide 400 MG Tab PO SCH (08:22)
[2018-07-08] MEDS: Carvedilol 25 MG Tab PO SCH ×2 (08:22→17:32)
[2018-07-08] MEDS: Doxazosin 4 MG Tab PO SCH ×2 (08:23→17:32)
[2018-07-08] MEDS: Losartan 50 MG Tab PO SCH (08:23)
[2018-07-08] MEDS: Lactobacillus Rhamnosus GG (Probiotic) Cap PO SCH ×2 (08:23→17:32)
[2018-07-08] MEDS: hydrALAZINE 50 MG Tab PO SCH ×3 (08:24→20:02)
[2018-07-08] MEDS: Aspirin 81 MG Tab.Chew PO SCH (08:25)
[2018-07-08] MEDS: Ferrous Sulfate 325 MG Tab PO SCH (08:25)
[2018-07-08] MEDS: Pantoprazole 40 MG Tab.CR PO SCH ×2 (08:25→17:32)
[2018-07-08] MEDS: metroNIDAZOLE 500 MG Tab PO SCH ×3 (08:25→20:01)
[2018-07-08] MEDS: amLODIPine 5 MG Tab PO SCH (08:26)
[2018-07-08] MEDS: Multivitamin Tab PO SCH (08:26)
[2018-07-08] MEDS: Nystatin Topical Powder 15 GM Bottle TOP SCH ×3 (08:26→17:33)
[2018-07-08] MEDS: SODIUM CHLORIDE 0.9% IV SCH (11:44)
[2018-07-08] MEDS: DAPTOMYCIN IV SCH (11:44)
[2018-07-08] MEDS: Sodium Chloride 0.9% 10 ML Syringe FLUSH PRN ×4 (11:45→23:37)
[2018-07-08] MEDS: Sodium Chloride 0.9% 10 ML Syringe FLUSH SCH ×2 (12:33→20:03)
[2018-07-08] MEDS: Enoxaparin 40 MG/0.4 ML Syringe SUBCUT SCH (17:31)
[2018-07-08] MEDS: guaiFENesin/Dextromethorphan 100-10 MG/5 ML Soln 10 ML Cup PO PRN (20:01)
[2018-07-08] MEDS ORDERED: Levofloxacin/Dextrose 5%-Water 500 MG in Premix Bag 1 BAG IV ONE (23:00)
[2018-07-08] MEDS: Ondansetron 4 MG/2 ML SDV IVPUSH PRN (23:28)
[2018-07-09] MEDS ORDERED: Lactated Ringers 1,000 ML IV SCH (09:00)
[2018-07-09] MEDS: hydrALAZINE 50 MG Tab PO SCH ×2 (09:13→15:54)
[2018-07-09] MEDS: Ferrous Sulfate 325 MG Tab PO SCH (09:14)
[2018-07-09] MEDS: Pantoprazole 40 MG Tab.CR PO SCH ×2 (09:14→17:08)
[2018-07-09] MEDS: Aspirin 81 MG Tab.Chew PO SCH (09:14)
[2018-07-09] MEDS: metroNIDAZOLE 500 MG Tab PO SCH ×2 (09:14→15:38)
[2018-07-09] MEDS: Finasteride 5 MG Tab PO SCH (09:14)
[2018-07-09] MEDS: Magnesium Oxide 400 MG Tab PO SCH (09:15)
[2018-07-09] MEDS: amLODIPine 5 MG Tab PO SCH (09:15)
[2018-07-09] MEDS: Losartan 50 MG Tab PO SCH (09:16)
[2018-07-09] MEDS: Carvedilol 25 MG Tab PO SCH ×2 (09:16→17:07)
[2018-07-09] MEDS: Doxazosin 4 MG Tab PO SCH ×2 (09:16→17:08)
[2018-07-09] MEDS: Lactobacillus Rhamnosus GG (Probiotic) Cap PO SCH ×2 (09:17→17:07)
[2018-07-09] MEDS: Nystatin Topical Powder 15 GM Bottle TOP SCH ×3 (09:17→17:11)
[2018-07-09] MEDS: Multivitamin Tab PO SCH (09:17)
[2018-07-09] MEDS: DAPTOMYCIN IV SCH (09:49)
[2018-07-09] MEDS: SODIUM CHLORIDE 0.9% IV SCH (09:49)
[2018-07-09] MEDS: Sodium Chloride 0.9% 10 ML Syringe FLUSH PRN ×5 (09:50→17:09)
[2018-07-09] MEDS: Ondansetron 4 MG/2 ML SDV IVPUSH PRN ×2 (09:58→15:49)
[2018-07-09] MEDS: Sodium Chloride 0.9% 10 ML Syringe FLUSH SCH (11:09)
[2018-07-09] MEDS: guaiFENesin/Dextromethorphan 100-10 MG/5 ML Soln 10 ML Cup PO PRN (12:14)
[2018-07-09] MEDS: Acetaminophen 325 MG Tab PO PRN (12:14)
[2018-07-09] MEDS ORDERED: metroNIDAZOLE/Normal Saline 500 MG in Premix Bag 1 BAG IV SCH (14:00)
[2018-07-09 15:56] LABS: O2 DELIVERY DEVICE NASAL CANNULA
[2018-07-09 15:57] LABS: PCO2 ARTERIAL 41 mmHG (35-45)
[2018-07-09 15:58] LABS: BASE EXCESS ARTERIAL -5 mmol/L (-2-3); BICARBONATE,ARTERIAL 20.8 mmol/L (22-26); O2 SATURATION ARTERIAL 86 % (95-98); PO2 ARTERIAL 56 mmHG (80-105)
--- NOTE | 2018-07-09 16:17 | PCM.SN ---
- Free Text/Narrative Note: Patient has declined in status and this provider was notified. During the night , patient spiked a temperature. He was given Levaquin 500mg IV one time. This morning, patient continued to have a decline. He started having nausea, increased weakness, chest congestion and pallor in color. We increased his torsemide to 40mg BID, we switched his Flagyl to IV to alleviate the irritation to the stomach, gave him zofran for nausea, added LR 1000mL at 250mL/hr to see if his creatinine would rebound. Patient seems to be progressively worsening. His Arterial blood gases have largely variable results. Creatinine and BUN are increasing. Lung sounds are notable worse than previously noted this morning. They were mostly clear to auscultation throughout, there was some crackling in the lower left lung base, but patient was unable to sit up in bed. He now has fine crackles throughout. He has only had minimal fluid output. We will continue Torsemide 40mg BID and give lasix 40mg now IV push per [facility]. We will be moving patient to inpatient status for renal failure.
[2018-07-09] MEDS ORDERED: Furosemide 40 MG/4 ML VIAL IVPUSH ONE (16:37)
[2018-07-09 17:08] VITALS: BP 137/57
[2018-07-09] MEDS: Enoxaparin 40 MG/0.4 ML Syringe SUBCUT SCH (17:09)
--- NOTE | 2018-07-09 17:17 | PCM.DCSUM1 ---
<Milly Barrera - Last Filed: 07/09/18 17:14> Discharge Summary - Hospital Course Free Text/Narrative:: Patient will be admitted as an inpatient for further monitoring and treatment of his acute renal failure. - Discharge Data Discharge Date: 07/09/18 Discharge Disposition: Admitted As Inpatient 67 Condition: Fair - Discharge Diagnosis/Problem(s) (1) Osteomyelitis SNOMED Code(s): 87785202 ICD Code: M86.9 - OSTEOMYELITIS, UNSPECIFIED Status: Acute Priority: High Onset Date: ~06/07/18 Problem Details: Continue to complete IV antibiotics per orders of ID at [place]. Wound vac will be in place and changed on [facility]. measurements and healing progress will be monitored. Patient will remain asymptomatic for further signs of infection. Qualifiers: Osteomyelitis type: other chronic Osteomyelitis location: foot Laterality : left Qualified Code(s): M86.672 - Other chronic osteomyelitis, left ankle and foot (2) Hypertension SNOMED Code(s): 65815410 ICD Code: I10 - ESSENTIAL (PRIMARY) HYPERTENSION Status: Acute Priority: High Problem Details: maintain a blood pressure of less than 140/90 with prescribed medication. medications were adjusted at [facility] during recent hospitalization. We will continue to monitor BP Qualifiers: Hypertension type: essential hypertension Qualified Code(s): I10 - Essential (primary) hypertension (3) Diabetes SNOMED Code(s): 66016656 ICD Code: E11.9 - TYPE 2 DIABETES MELLITUS WITHOUT COMPLICATIONS Status: Acute Priority: High Problem Details: Monitor patient's blood sugars QID. Use sliding scale insulin as needed for elevated BS. patient is no longer on insulin, per discharge orders. His BS were 100-140 without medication. We will monitor this. 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 He was seen by nephrology at recent appointment. Aranesp injections were started. He will follow up with nephrology (5) Acute renal failure SNOMED Code(s): 93173512 ICD Code: N17.9 - ACUTE KIDNEY FAILURE, UNSPECIFIED Status: Acute Qualifiers: Acute renal failure type: unspecified Qualified Code(s): N17.9 - Acute kidney failure, unspecified - Patient Summary/Data Consults: Consultations 07/03/18 13:25 OT Evaluation and Treatment [CONS] Routine PT Evaluation and Treatment [CONS] Routine - Discharge Plan Home Medications: Home Meds Acetaminophen [Tylenol] 650 mg PO Q4H PRN 07/10/18 [History] Aspirin 81 mg PO DAILY 07/10/18 [History] Carvedilol [Coreg] 25 mg PO BID 07/10/18 [History] DAPTOmycin [Daptomycin] 684 mg IV Q48H 07/10/18 [History] Dextromethorphan/guaiFENesin [Robitussin DM] 10 ml PO Q4H PRN 07/10/18 [History] Doxazosin [Doxazosin Mesylate] 4 mg PO BID 07/10/18 [History] Enoxaparin [Lovenox] 40 mg SUBCUT DAILY@18 07/10/18 [History] Ferrous Sulfate 325 mg PO DAILY 07/10/18 [History] Finasteride [Proscar] 5 mg PO DAILY 07/10/18 [History] Heparin Sodium,Porcine/PF [Heparin 500 Unit/5 ml (100/ml)] 300 unit IV ASDIRECTED PRN 07/10/18 [History] Heparin Sodium,Porcine/PF [Heparin 500 Unit/5 ml (100/ml)] 300 unit IV DAILY@ 1030 07/10/18 [History] Lactobacillus Rhamnosus [id number] [Probiotic Digestive Care] 1 each PO BID 07/10/18 [History] Losartan [Cozaar] 25 mg PO DAILY 07/10/18 [History] Magnesium Oxide [Magnesium] 400 mg PO DAILY 07/10/18 [History] Multivitamin [Multi-Day Vitamins] 1 each PO DAILY 07/10/18 [History] Nystatin [Nystop] 1 applic TP TID 07/10/18 [History] Ondansetron [Zofran] 4 mg IV Q6H PRN 07/10/18 [History] Pantoprazole Sodium [Protonix] 40 mg PO BID 07/10/18 [History] Sodium Chloride 0.9% [Saline Flush] 10 ml FLUSH 1030,20 07/10/18 [History] Sodium Chloride 0.9% [Saline Flush] 10 ml FLUSH ASDIRECTED PRN 07/10/18 [History ] Sodium Chloride [Saline Nasal [place]] 1 spray NS Q2H PRN 07/10/18 [History] Torsemide [Demadex] 40 mg PO BID 07/10/18 [History] amLODIPine Besylate [Norvasc] 10 mg PO DAILY 07/10/18 [History] hydrALAZINE HCl [Hydralazine HCl] 100 mg PO TID 07/10/18 [History] metroNIDAZOLE/Normal Saline [metroNIDAZOLE in NS Premix] 500 mg IV Q8H 07/10/18 [History] - Discharge Summary/Plan Comment DC Time >30 min.: Yes - General Info Date of Service: 07/09/18 Admission Dx/Problem (Free Text: osteomyelitis and acute renal failure Functional Status: Reports: Pain Controlled - Review of Systems General: Reports: Weakness, Fatigue HEENT: Reports: No Symptoms Pulmonary: Reports: Shortness of Breath, Wheezing Cardiovascular: Reports: Edema Gastrointestinal: Reports: Abdominal Pain, Nausea, Vomiting Genitourinary: Reports: Incontinence Musculoskeletal: Reports: No Symptoms Skin: Reports: Other Neurological: Reports: No Symptoms Psychiatric: Reports: No Symptoms - Patient Data Vitals - Most Recent: Last Vital Signs Temp 99.1 F 07/09/18 16:19 Pulse 77 07/09/18 17:07 Resp 19 07/09/18 16:19 BP 137/57 L 07/09/18 17:08 Pulse Ox 92 L 07/09/18 16:19 Weight - Most Recent: 114 kg I&O - Last 24 hours: Intake & Output 07/09/18 07/09/18 07/09/18 06:59 14:59 22:59 Intake Total 120 1100 400 Output Total 350 500 Balance 120 750 -100 Lab Results - Last 24 hrs: Laboratory Results - last 24 hr 07/09/18 07/09/18 07/09/18 Range/Units 07:17 15:43 15:43 WBC 7.7 (4.0-10.2) K/uL RBC 2.43 L (4.33-5.41) M/uL Hgb 7.0 L* (13.1-16.8) g/dL Hct 21.9 L* (39.0-49.0) % MCV 90.1 (84.0-98.0) fL MCH 28.8 (28.2-33.3) pg MCHC 32.0 (31.7-36.0) g/dL RDW 17.4 H (11.2-14.1) % Plt Count 296 (150-350) K/uL MPV 9.10 (7.00-11.50) fL ABG pH (7.35-7.45) ABG pCO2 (35-45) mmHG ABG pO2 (80-105) mmHG ABG HCO3 (22-26) mmol/L ABG Total CO2 (23-27) mmol/L ABG O2 Saturation (95-98) % ABG Base Excess (-2-3) mmol/L O2 Delivery Device Sodium 138 (136-145) mmol/L Potassium 4.2 (3.5-5.1) mmol/L Chloride 104 (98-107) mmol/L Carbon Dioxide 22.4 (21.0-32.0) mmol/L BUN 27 H (7-18) mg/dL Creatinine 3.14 H* (0.51-1.17) mg/dL Est Cr Clr Drug Dosing 24.21 mL/min Estimated GFR (MDRD) 20 mL/min Glucose 115 H (74-106) mg/dL POC Glucose 99 (65-110) mg/dl Calcium 8.1 L (8.5-10.1) mg/dL Specimen Type Urine Color Urine Appearance Urine pH (5.0-9.0) Ur Specific [place] (1.005-1.030) Urine Protein (NEGATIVE) mg/dL Urine Glucose (UA) (NEGATIVE) mg/dL Urine Ketones (NEGATIVE) mg/dL Urine Occult Blood (NEGATIVE) Urine Nitrite (NEGATIVE) Urine Bilirubin (NEGATIVE) Urine Urobilinogen (0.2-1.0) E.U./dL Ur Leukocyte Esterase (NEGATIVE) Urine RBC /HPF Urine WBC /HPF Ur Epithelial Cells /LPF Amorphous Sediment (0/HPF) /HPF Urine Bacteria (NONE TO FEW) /HPF 07/09/18 07/09/18 07/09/18 Range/Units 15:45 15:45 17:02 WBC (4.0-10.2) K/uL RBC (4.33-5.41) M/uL Hgb (13.1-16.8) g/dL Hct (39.0-49.0) % MCV (84.0-98.0) fL MCH (28.2-33.3) pg MCHC (31.7-36.0) g/dL RDW (11.2-14.1) % Plt Count (150-350) K/uL MPV (7.00-11.50) fL ABG pH 7.31 L (7.35-7.45) ABG pCO2 41 (35-45) mmHG ABG pO2 56 L* (80-105) mmHG ABG HCO3 20.8 L (22-26) mmol/L ABG Total CO2 22 L (23-27) mmol/L ABG O2 Saturation 86 L (95-98) % ABG Base Excess -5 L (-2-3) mmol/L O2 Delivery Device Nasal cannula Sodium (136-145) mmol/L Potassium (3.5-5.1) mmol/L Chloride (98-107) mmol/L Carbon Dioxide (21.0-32.0) mmol/L BUN (7-18) mg/dL Creatinine (0.51-1.17) mg/dL Est Cr Clr Drug Dosing mL/min Estimated GFR (MDRD) mL/min Glucose (74-106) mg/dL POC Glucose 110 (65-110) mg/dl Calcium (8.5-10.1) mg/dL Specimen Type [place] Urine Color Dark yellow Urine Appearance Slightly cloudy Urine pH 5.0 (5.0-9.0) Ur Specific [place] 1.025 (1.005-1.030) Urine Protein >=300 H (NEGATIVE) mg/dL Urine Glucose (UA) 100 H (NEGATIVE) mg/dL Urine Ketones Negative (NEGATIVE) mg/dL Urine Occult Blood Negative (NEGATIVE) Urine Nitrite Negative (NEGATIVE) Urine Bilirubin Negative (NEGATIVE) Urine Urobilinogen 0.2 (0.2-1.0) E.U./dL Ur Leukocyte Esterase Negative (NEGATIVE) Urine RBC 0-5 /HPF Urine WBC 0-5 /HPF Ur Epithelial Cells Few /LPF Amorphous Sediment Moderate H (0/HPF) /HPF Urine Bacteria Moderate H (NONE TO FEW) /HPF [place] Results - Last 24 hrs: Microbiology 07/03/18 16:00 Aerobic Blood Culture - Final Blood NO GROWTH AFTER 5 DAYS Anaerobic Blood Culture - Final NO GROWTH AFTER 5 DAYS Med Orders - Current: Current Medications Acetaminophen (Tylenol) 650 mg PO Q4H PRN PRN Reason: Fever Last Admin: 07/09/18 12:14 Dose: 650 mg Amlodipine Besylate (Norvasc) 10 mg PO DAILY [facility] Last Admin: 07/09/18 09:15 Dose: 10 mg Aspirin (Aspirin) 81 mg PO DAILY [facility] Last Admin: 07/09/18 09:14 Dose: 81 mg Carvedilol (Coreg) 25 mg PO BIDMEALS [facility] Last Admin: 07/09/18 17:07 Dose: 25 mg Doxazosin Mesylate (Cardura) 4 mg PO BID [facility] Last Admin: 07/09/18 17:08 Dose: 4 mg Enoxaparin Sodium (Lovenox) 40 mg SUBCUT Q24H [facility] Last Admin: 07/09/18 17:09 Dose: 40 mg Ferrous Sulfate (Ferrous Sulfate) 325 mg PO DAILY [facility] Last Admin: 07/09/18 09:14 Dose: 325 mg Finasteride (Proscar) 5 mg PO DAILY [facility] Last Admin: 07/09/18 09:14 Dose: 5 mg Guaifenesin/Dextromethorphan (Robitussin Dm) 10 ml PO Q4H PRN PRN Reason: Cough Last Admin: 07/09/18 12:14 Dose: 10 ml Heparin Sodium (Porcine) (Heparin Lock Flush 100 Units/Ml) 300 units FLUSH ASDIRECTED PRN PRN Reason: PICC line use Last Admin: 07/09/18 17:09 Dose: 300 units Heparin Sodium (Porcine) (Heparin Lock Flush 100 Units/Ml) 300 units FLUSH DAILY@1030 [facility] Last Admin: 07/09/18 11:08 Dose: Not Given Hydralazine HCl (Apresoline) 100 mg PO TID@0800,1400,1999 [facility] Last Admin: 07/09/18 15:54 Dose: 100 mg Metronidazole 500 mg/ Premix 100 mls @ 100 mls/hr IV TID@0800,1400,1999 [facility] Stop: 07/21/18 14:01 Last Admin: 07/09/18 15:48 Dose: 100 mls/hr Daptomycin 684 mg/ Sodium (Chloride) 100 mls @ 200 mls/hr IV Q2D [facility] Lactobacillus Rhamnosus (Culturelle) 1 cap PO BID [facility] Last Admin: 07/09/18 17:07 Dose: 1 cap Losartan Potassium (Cozaar) 25 mg PO DAILY [facility] Last Admin: 07/09/18 09:16 Dose: 25 mg Magnesium Oxide (Magnesium Oxide) 400 mg PO DAILY [facility] Last Admin: 07/09/18 09:15 Dose: 400 mg Multivitamins/Minerals/Vitamin C (Tab-A-Mayte) 1 tab PO DAILY [facility] Last Admin: 07/09/18 09:17 Dose: 1 tab Nystatin (Nystop) 15 gm TOP TID [facility] Last Admin: 07/09/18 17:11 Dose: 1 applic Ondansetron HCl (Zofran) 4 mg IVPUSH Q6H PRN PRN Reason: Nausea/Vomiting Last Admin: 07/09/18 15:49 Dose: 4 mg Pantoprazole Sodium (Protonix) 40 mg PO BIDAC [facility] Last Admin: 07/09/18 17:08 Dose: 40 mg Sodium Chloride (Saline Flush) 10 ml FLUSH BID@1030,2000 [facility] Last Admin: 07/09/18 11:09 Dose: Not Given Sodium Chloride (Saline Flush) 10 ml FLUSH ASDIRECTED PRN PRN Reason: TO KEEP LINE OPEN Last Admin: 07/09/18 17:09 Dose: 10 ml Sodium Chloride ([place] Nasal [place]) 0 ml [place] Q2H PRN PRN Reason: Congestion Last Admin: 07/07/18 18:03 Dose: 1 spray Torsemide (Demadex) 40 mg PO BID [facility] Last Admin: 07/09/18 17:07 Dose: 40 mg Discontinued Medications Acetaminophen (Tylenol) 325 mg PO Q4HR PRN PRN Reason: Pain/Fever Enoxaparin Sodium (Lovenox) 40 mg SUBCUT Q24H [facility] Furosemide (Lasix) 40 mg IVPUSH NOW ONE Stop: 07/09/18 16:38 Last Admin: 07/09/18 17:05 Dose: 40 mg Daptomycin 684 mg/ Sodium (Chloride) 100 mls @ 200 mls/hr IV Q24H [facility] Last Admin: 07/09/18 09:49 Dose: 200 mls/hr Levofloxacin/Dextrose 500 mg/ (Premix) 100 mls @ 100 mls/hr IV ONETIME ONE Stop: 07/08/18 23:59 Last Admin: 07/08/18 23:28 Dose: 100 mls/hr Lactated Ringer's (Ringers, Lactated) 1,000 mls @ 250 mls/hr IV ASDIRECTED [facility] Last Admin: 07/09/18 09:52 Dose: 250 mls/hr Levofloxacin/Dextrose 500 mg/ (Premix) 100 mls @ 100 mls/hr IV Q24H [facility] Metronidazole (Flagyl) 500 mg PO TID@0800,1400,2000 [facility] Stop: 07/21/18 14:01 Last Admin: 07/09/18 15:38 Dose: Not Given Torsemide (Demadex) 20 mg PO BID [facility] Last Admin: 07/09/18 09:37 Dose: Not Given Torsemide (Demadex) 40 mg PO ONETIME ONE Stop: 07/09/18 09:46 Last Admin: 07/09/18 09:49 Dose: 40 mg - Exam General: Reports: Alert, Oriented HEENT: Reports: Pupils Equal, Pupils Reactive Neck: Reports: Supple Lungs: Reports: Clear to Auscultation, Crackles Cardiovascular: Reports: Regular Rate, Regular Rhythm GI/Abdominal Exam: Normal Bowel Sounds, Soft, Non-Tender Skin: Reports: Warm, Dry, Intact Wound/Incisions: Reports: Other Psy/Mental Status: Reports: Alert, Normal Mood *Q Meaningful Use (DIS) - VTE *Q VTE Mechanical Contraindications *Q: At Risk for Falls <Alessandra Castaneda - Last Filed: 07/10/18 21:01> Discharge Summary - Patient Summary/Data Consults: Consultations 07/03/18 13:25 OT Evaluation and Treatment [CONS] Routine PT Evaluation and Treatment [CONS] Routine - Discharge Summary/Plan Comment Discharge Summary/Plan Comment: Note reviewed. Agree with plan. - Patient Data Vitals - Most Recent: Last Vital Signs Temp 37.3 C 07/09/18 16:19 Pulse 77 07/09/18 17:07 Resp 19 07/09/18 16:19 BP 137/57 L 07/09/18 17:08 Pulse Ox 92 L 07/09/18 16:19 Med Orders - Current: Current Medications Discontinued Medications Acetaminophen (Tylenol) 325 mg PO Q4HR PRN PRN Reason: Pain/Fever Acetaminophen (Tylenol) 650 mg PO Q4H PRN PRN Reason: Fever Last Admin: 07/09/18 12:14 Dose: 650 mg Amlodipine Besylate (Norvasc) 10 mg PO DAILY [facility] Last Admin: 07/09/18 09:15 Dose: 10 mg Aspirin (Aspirin) 81 mg PO DAILY [facility] Last Admin: 07/09/18 09:14 Dose: 81 mg Carvedilol (Coreg) 25 mg PO BIDMEALS [facility] Last Admin: 07/09/18 17:07 Dose: 25 mg Doxazosin Mesylate (Cardura) 4 mg PO BID [facility] Last Admin: 07/09/18 17:08 Dose: 4 mg Enoxaparin Sodium (Lovenox) 40 mg SUBCUT Q24H [facility] Enoxaparin Sodium (Lovenox) 40 mg SUBCUT Q24H [facility] Last Admin: 07/09/18 17:09 Dose: 40 mg Ferrous Sulfate (Ferrous Sulfate) 325 mg PO DAILY [facility] Last Admin: 07/09/18 09:14 Dose: 325 mg Finasteride (Proscar) 5 mg PO DAILY [facility] Last Admin: 07/09/18 09:14 Dose: 5 mg Furosemide (Lasix) 40 mg IVPUSH NOW ONE Stop: 07/09/18 16:38 Last Admin: 07/09/18 17:05 Dose: 40 mg Guaifenesin/Dextromethorphan (Robitussin Dm) 10 ml PO Q4H PRN PRN Reason: Cough Last Admin: 07/09/18 12:14 Dose: 10 ml Heparin Sodium (Porcine) (Heparin Lock Flush 100 Units/Ml) 300 units FLUSH ASDIRECTED PRN PRN Reason: PICC line use Last Admin: 07/09/18 17:09 Dose: 300 units Heparin Sodium (Porcine) (Heparin Lock Flush 100 Units/Ml) 300 units FLUSH DAILY@1030 [facility] Last Admin: 07/09/18 11:08 Dose: Not Given Hydralazine HCl (Apresoline) 100 mg PO TID@0800,1400,2000 [facility] Last Admin: 07/09/18 15:54 Dose: 100 mg Daptomycin 684 mg/ Sodium (Chloride) 100 mls @ 200 mls/hr IV Q24H [facility] Last Admin: 07/09/18 09:49 Dose: 200 mls/hr Levofloxacin/Dextrose 500 mg/ (Premix) 100 mls @ 100 mls/hr IV ONETIME ONE Stop: 07/08/18 23:59 Last Admin: 07/08/18 23:28 Dose: 100 mls/hr Lactated Ringer's (Ringers, Lactated) 1,000 mls @ 250 mls/hr IV ASDIRECTED [facility] Last Admin: 07/09/18 09:52 Dose: 250 mls/hr Levofloxacin/Dextrose 500 mg/ (Premix) 100 mls @ 100 mls/hr IV Q24H [facility] Metronidazole 500 mg/ Premix 100 mls @ 100 mls/hr IV TID@0800,1400,1999 [facility] Stop: 07/21/18 14:01 Last Admin: 07/09/18 15:48 Dose: 100 mls/hr Daptomycin 684 mg/ Sodium (Chloride) 100 mls @ 200 mls/hr IV Q2D [facility] Lactobacillus Rhamnosus (Culturelle) 1 cap PO BID [facility] Last Admin: 07/09/18 17:07 Dose: 1 cap Losartan Potassium (Cozaar) 25 mg PO DAILY [facility] Last Admin: 07/09/18 09:16 Dose: 25 mg Magnesium Oxide (Magnesium Oxide) 400 mg PO DAILY [facility] Last Admin: 07/09/18 09:15 Dose: 400 mg Metronidazole (Flagyl) 500 mg PO TID@0800,1400,1999 [facility] Stop: 07/21/18 14:01 Last Admin: 07/09/18 15:38 Dose: Not Given Multivitamins/Minerals/Vitamin C (Tab-A-Mayte) 1 tab PO DAILY [facility] Last Admin: 07/09/18 09:17 Dose: 1 tab Nystatin (Nystop) 15 gm TOP TID [facility] Last Admin: 07/09/18 17:11 Dose: 1 applic Ondansetron HCl (Zofran) 4 mg IVPUSH Q6H PRN PRN Reason: Nausea/Vomiting Last Admin: 07/09/18 15:49 Dose: 4 mg Pantoprazole Sodium (Protonix) 40 mg PO BIDAC [facility] Last Admin: 07/09/18 17:08 Dose: 40 mg Sodium Chloride (Saline Flush) 10 ml FLUSH BID@1030,2000 [facility] Last Admin: 07/09/18 11:09 Dose: Not Given Sodium Chloride (Saline Flush) 10 ml FLUSH ASDIRECTED PRN PRN Reason: TO KEEP LINE OPEN Last Admin: 07/09/18 17:09 Dose: 10 ml Sodium Chloride ([place] Nasal [place]) 0 ml [place] Q2H PRN PRN Reason: Congestion Last Admin: 07/07/18 18:03 Dose: 1 spray Torsemide (Demadex) 20 mg PO BID [facility] Last Admin: 07/09/18 09:37 Dose: Not Given Torsemide (Demadex) 40 mg PO BID [facility] Last Admin: 07/09/18 17:07 Dose: 40 mg Torsemide (Demadex) 40 mg PO ONETIME ONE Stop: 07/09/18 09:46 Last Admin: 07/09/18 09:49 Dose: 40 mg
[2018-07-09] MEDS ORDERED: Levofloxacin/Dextrose 5%-Water 500 MG in Premix Bag 1 BAG IV SCH (20:00)
[2018-07-11] MEDS ORDERED: DAPTOMYCIN IV SCH (10:00)
[2018-07-11] MEDS ORDERED: SODIUM CHLORIDE 0.9% IV SCH (10:00)
== END 2018-07-09 17:24 | disposition critical access hospital (66) | DRG 469 ==
LOC: LL.MS 14:19
PROVIDERS: ADMIT Nurse Practitioner; ATTEND Family Medicine
DX: N17.9 Acute kidney failure, unspecified (principal); E11.69 Type 2 diabetes mellitus with other specified complication; E11.22 Type 2 diabetes mellitus with diabetic chronic kidney disease; E11.40 Type 2 diabetes mellitus with diabetic neuropathy, unspecified; E11.621 Type 2 diabetes mellitus with foot ulcer; L97.429 Non-pressure chronic ulcer of left heel and midfoot with unspecified severity; M86.672 Other chronic osteomyelitis, left ankle and foot; D64.9 Anemia, unspecified; I12.9 Hypertensive chronic kidney disease with stage 1 through stage 4 chronic kidney disease, or unspecified chronic kidney disease; N18.9 Chronic kidney disease, unspecified; M19.90 Unspecified osteoarthritis, unspecified site; E66.9 Obesity, unspecified; H54.7 Unspecified visual loss; Z68.35 Body mass index [BMI] 35.0-35.9, adult; Z98.1 Arthrodesis status; Z79.4 Long term (current) use of insulin; Z79.899 Other long term (current) drug therapy; Z88.0 Allergy status to penicillin; Z88.8 Allergy status to other drugs, medicaments and biological substances; Z79.82 Long term (current) use of aspirin; Z89.421 Acquired absence of other right toe(s)
CPT/HCPCS: 36415; 51702; 71045; 71046; 80048; 80053; 80061; 81001; 82803; 82962; 83605; 85025; 85027; 85379; 87040; 87804; 97162-GP; 97165-GO; 97530-GP; 97605; A9270-GY; J0878; J1642; J1650; J1940; J1956; J2405; J3490; J7050; J7120

== ENCOUNTER 2018-07-09 17:18 | Inpatient (IN) | payer BC, MEDICARE ==
[2018-07-09] MEDS ORDERED: Acetaminophen/HYDROcodone 325-5 MG Tab PO PRN (17:25)
--- NOTE | 2018-07-09 17:43 | PCM.HP ---
<Milly Barrera D - Last Filed: 07/09/18 17:38> H&P History of Present Illness - General Date of Service: 07/09/18 Source of Information: Patient, RN History Limitations: Reports: No Limitations - History of Present Illness Initial Comments - Free Text/Narative: Patient is being switched to inpatient status for acute renal failure evaluation and treatment. Patient has had progressive decline in creatinine and BUN levels. He has been having increased weakness and overall general deconditioning. We will move him to inpatient status for better monitoring. See SWB note. Onset of Symptoms: Reports: Gradual Duration of Symptoms: Reports: Getting Worse - Related Data Allergies/Adverse Reactions: Allergies Allergy/AdvReac Type Severity Reaction Status Date / Time atorvastatin [From Lipitor] Allergy Cannot Verified 07/10/18 05:43 Remember Penicillins Allergy Cannot Verified 07/10/18 05:43 Remember rosuvastatin [From Crestor] Allergy Cannot Verified 07/10/18 05:43 Remember simvastatin Allergy Cannot Verified 07/10/18 05:43 Remember Home Medications: Home Meds Acetaminophen [Tylenol] 650 mg PO Q4H PRN 07/10/18 [History] Aspirin 81 mg PO DAILY 07/10/18 [History] Carvedilol [Coreg] 25 mg PO BID 07/10/18 [History] DAPTOmycin [Daptomycin] 684 mg IV Q48H 07/10/18 [History] Dextromethorphan/guaiFENesin [Robitussin DM] 10 ml PO Q4H PRN 07/10/18 [History] Doxazosin [Doxazosin Mesylate] 4 mg PO BID 07/10/18 [History] Enoxaparin [Lovenox] 40 mg SUBCUT DAILY@18 07/10/18 [History] Ferrous Sulfate 325 mg PO DAILY 07/10/18 [History] Finasteride [Proscar] 5 mg PO DAILY 07/10/18 [History] Heparin Sodium,Porcine/PF [Heparin 500 Unit/5 ml (100/ml)] 300 unit IV ASDIRECTED PRN 07/10/18 [History] Heparin Sodium,Porcine/PF [Heparin 500 Unit/5 ml (100/ml)] 300 unit IV DAILY@ 1030 07/10/18 [History] Lactobacillus Rhamnosus [id number] [Probiotic Digestive Care] 1 each PO BID 07/10/18 [History] Losartan [Cozaar] 25 mg PO DAILY 07/10/18 [History] Magnesium Oxide [Magnesium] 400 mg PO DAILY 07/10/18 [History] Multivitamin [Multi-Day Vitamins] 1 each PO DAILY 07/10/18 [History] Nystatin [Nystop] 1 applic TP TID 07/10/18 [History] Ondansetron [Zofran] 4 mg IV Q6H PRN 07/10/18 [History] Pantoprazole Sodium [Protonix] 40 mg PO BID 07/10/18 [History] Sodium Chloride 0.9% [Saline Flush] 10 ml FLUSH 1030,20 07/10/18 [History] Sodium Chloride 0.9% [Saline Flush] 10 ml FLUSH ASDIRECTED PRN 07/10/18 [History ] Sodium Chloride [Saline Nasal [place]] 1 spray NS Q2H PRN 07/10/18 [History] Torsemide [Demadex] 40 mg PO BID 07/10/18 [History] amLODIPine Besylate [Norvasc] 10 mg PO DAILY 07/10/18 [History] hydrALAZINE HCl [Hydralazine HCl] 100 mg PO TID 07/10/18 [History] metroNIDAZOLE/Normal Saline [metroNIDAZOLE in NS Premix] 500 mg IV Q8H 07/10/18 [History] Past Medical History HEENT History: Reports: Impaired Vision Other HEENT History: glasses Cardiovascular History: Reports: None, Hypertension Respiratory History: Reports: None Gastrointestinal History: Reports: GERD, Hemorrhoids Genitourinary History: Reports: Acute Renal Failure, Renal Disease, Urinary Incontinence Musculoskeletal History: Reports: Arthritis Neurological History: Reports: Neuropathy, Diabetic Psychiatric History: Reports: None Endocrine/Metabolic History: Reports: Diabetes, Type II, Obesity/BMI 30+ Hematologic History: Reports: Anemia Immunologic History: Reports: None Oncologic (Cancer) History: Reports: None Dermatologic History: Reports: Other (See Below) Other Dermatologic History: 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 - Infectious Disease History Infectious Disease History: Reports: None, Other (See Below) (Osteomyelitis to LLE) - Past Surgical History HEENT Surgical History: Reports: LASIK Other HEENT Surgeries/Procedures: left eye GI Surgical History: Reports: Colonoscopy Neurological Surgical History: Reports: C-Spine, Spinal Fusion Other Neurological Surgeries/Procedures: C-4-5-6 fusion, mesh tx 2006 Musculoskeletal Surgical History: Reports: Other (See Below) Other Musculoskeletal Surgeries/Procedures:: right foot 5th toe ampution 2016 Social & Family History - Family History Family Medical History: Unobtainable - Caffeine Use Caffeine Use: Reports: Coffee H&P Review of Systems - Review of Systems: Review Of Systems: See Below General: Reports: Weakness HEENT: Reports: No Symptoms, Glasses Pulmonary: Reports: Shortness of Breath, Cough Cardiovascular: Reports: No Symptoms Gastrointestinal: Reports: Nausea Genitourinary: Reports: Incontinence Musculoskeletal: Reports: No Symptoms Skin: Reports: Other (wound to left heel) Psychiatric: Reports: No Symptoms Neurological: Reports: No Symptoms Hematologic/Lymphatic: Reports: Anemia Immunologic: Reports: No Symptoms Exam - Exam Exam: See Below - Exam Quality Assessment: Supplemental Oxygen, Central Line/PICC, Urinary Catheter, Skin Breakdown General: Alert, Oriented HEENT: Conjunctiva Clear, EACs Clear, EOMI, Hearing Intact, Mucosa Moist & [place] , Nares Patent, Pupils Equal, Pupils Reactive Neck: Supple, Trachea Midline Lungs: Normal Respiratory Effort, Crackles Cardiovascular: Regular Rate, Regular Rhythm, Normal S1, Normal S2 GI/Abdominal Exam: Normal Bowel Sounds, Soft, Non-Tender (Male) Exam: Deferred Rectal (Males) Exam: Deferred Extremities: Pedal Edema Skin: Warm, Dry, Wound Neuro Extensive - Mental Status: Alert, Oriented x3, Normal Mood/Affect, Normal Cognition, Memory Intact Psychiatric: Alert, Normal Affect, Normal Mood - Problem List (1) Acute renal failure SNOMED Code(s): 43061185 ICD Code: N17.9 - ACUTE KIDNEY FAILURE, UNSPECIFIED Status: Acute Problem Details: We will monitor creatinine and BUN level for decline, maintain fluid level Qualifiers: Acute renal failure type: unspecified Qualified Code(s): N17.9 - Acute kidney failure, unspecified (2) Osteomyelitis SNOMED Code(s): 66040411 ICD Code: M86.9 - OSTEOMYELITIS, UNSPECIFIED Status: Acute Priority: High Onset Date: ~06/07/18 Problem Details: Continue to complete IV antibiotics per orders of ID at [place]. Wound vac will be in place and changed on [facility]. measurements and healing progress will be monitored. Patient will remain asymptomatic for further signs of infection. Qualifiers: Osteomyelitis type: other chronic Osteomyelitis location: foot Laterality : left Qualified Code(s): M86.672 - Other chronic osteomyelitis, left ankle and foot (3) Hypertension SNOMED Code(s): 45647724 ICD Code: I10 - ESSENTIAL (PRIMARY) HYPERTENSION Status: Acute Priority: High Problem Details: maintain a blood pressure of less than 140/90 with prescribed medication. medications were adjusted at [facility] during recent hospitalization. We will continue to monitor BP Qualifiers: Hypertension type: essential hypertension Qualified Code(s): I10 - Essential (primary) hypertension Problem List Initiated/Reviewed/Updated: Yes Orders Last 24hrs: Active Orders 24 hr Category Date Time Status Acetaminophen/HYDROcodone [[place] 325-5 MG] Med 07/09/18 17:25 Ordered 1 - 2 tab PO Q8H PRN Aspirin Med 07/10/18 08:00 Ordered 81 mg PO DAILY Carvedilol [Coreg] Med 07/09/18 17:30 Ordered 25 mg PO BIDMEALS DAPTOmycin [Cubicin] 684 mg Med 07/11/18 10:00 Ordered Sodium Chloride 0.9% [Normal Saline] 100 ml IV Q2D Doxazosin [Cardura] Med 07/10/18 08:00 Ordered 1 tab PO DAILY Enoxaparin [Lovenox] Med 07/10/18 15:00 Ordered 40 mg SUBCUT DAILY Ferrous Sulfate Med 07/10/18 08:00 Ordered 1 tab PO DAILY Finasteride [Proscar] Med 07/10/18 08:00 Ordered 5 mg PO DAILY Heparin Sodium [Heparin Lock Flush 100 Units/ML] Med 07/10/18 10:30 Ordered 300 units FLUSH DAILY Losartan [Cozaar] Med 07/10/18 08:00 Ordered 25 mg PO DAILY Magnesium 400 Med 07/10/18 08:00 Ordered 1 tab PO DAILY Multivitamin/Iron/Folic Acid [Centrum Adults Tablet] Med 07/10/18 08:00 Ordered 1 tab PO DAILY Nystatin [Nystop] Med 07/09/18 18:00 Ordered 15 gm TOP TID Ondansetron [Zofran] Med 07/09/18 17:37 Ordered 4 mg IVPUSH Q4H PRN Pantoprazole [ProTONIX] Med 07/09/18 17:30 Ordered 40 mg PO BIDAC Saccharomyces Boulardii Med 07/09/18 18:00 Ordered 1 tab PO BID Sodium Chloride 0.9% [Saline Flush] Med 07/09/18 17:30 Ordered 10 ml FLUSH ASDIRECTED Torsemide [Torsemide] Med 07/09/18 18:00 Ordered 40 mg PO BID amLODIPine Besylate [Norvasc] Med 07/10/18 08:00 Ordered 10 mg PO DAILY hydrALAZINE [Apresoline] Med 07/09/18 18:00 Ordered 50 mg PO TID metroNIDAZOLE/Normal Saline [Flagyl 500 MG in NS 100 ML Med 07/09/18 17:45 Ordered ] 500 mg Premix Bag 1 bag IV Q8H <Alessandra Castaneda H - Last Filed: 07/10/18 20:59> H&P History of Present Illness - General Admit Problem/Dx: Admission Diagnosis/Problem Admission Diagnosis/Problem Acute renal failure Exam - Vital Signs Vital Signs: Last Vital Signs Temp 37.8 C 07/10/18 08:00 Pulse 87 07/10/18 08:51 Resp 21 H 07/10/18 08:00 BP 143/66 H 07/10/18 08:54 Pulse Ox 94 L 07/10/18 08:00 - Patient Data Lab Results Last 24 hrs: Laboratory Results - last 24 hr 07/09/18 07/10/18 07/10/18 Range/Units 21:59 06:48 06:48 WBC 11.2 H (4.0-10.2) K/uL RBC 2.50 L (4.33-5.41) M/uL Hgb 7.2 L* (13.1-16.8) g/dL Hct 22.8 L* (39.0-49.0) % MCV 91.2 (84.0-98.0) fL MCH 28.8 (28.2-33.3) pg MCHC 31.6 L (31.7-36.0) g/dL RDW 17.0 H (11.2-14.1) % Plt Count 317 (150-350) K/uL Neut % (Auto) 87.0 H (45.0-80.0) % Lymph % (Auto) 6.8 L (10.0-50.0) % [place] % (Auto) 5.9 (2.0-14.0) % Eos % (Auto) 0.1 (0.0-5.0) % Baso % (Auto) 0.2 (0.0-2.0) % Neut # (Auto) 9.73 H (1.40-7.00) K/uL Lymph # (Auto) 0.76 (0.50-3.50) K/uL [place] # (Auto) 0.66 (0.00-1.00) K/uL Eos # (Auto) 0.01 (0.00-0.50) K/uL Baso # (Auto) 0.02 (0.00-0.20) K/uL Sodium 135 L (136-145) mmol/L Potassium 4.1 (3.5-5.1) mmol/L Chloride 103 (98-107) mmol/L Carbon Dioxide 21.7 (21.0-32.0) mmol/L BUN 28 H (7-18) mg/dL Creatinine 3.32 H* (0.51-1.17) mg/dL Est Cr Clr Drug Dosing 22.29 mL/min Estimated GFR (MDRD) 19 mL/min Glucose 112 H (74-106) mg/dL POC Glucose 146 H (65-110) mg/dl Calcium 8.0 L (8.5-10.1) mg/dL 07/10/18 Range/Units 07:17 WBC (4.0-10.2) K/uL RBC (4.33-5.41) M/uL Hgb (13.1-16.8) g/dL Hct (39.0-49.0) % MCV (84.0-98.0) fL MCH (28.2-33.3) pg MCHC (31.7-36.0) g/dL RDW (11.2-14.1) % Plt Count (150-350) K/uL Neut % (Auto) (45.0-80.0) % Lymph % (Auto) (10.0-50.0) % [place] % (Auto) (2.0-14.0) % Eos % (Auto) (0.0-5.0) % Baso % (Auto) (0.0-2.0) % Neut # (Auto) (1.40-7.00) K/uL Lymph # (Auto) (0.50-3.50) K/uL [place] # (Auto) (0.00-1.00) K/uL Eos # (Auto) (0.00-0.50) K/uL Baso # (Auto) (0.00-0.20) K/uL Sodium (136-145) mmol/L Potassium (3.5-5.1) mmol/L Chloride (98-107) mmol/L Carbon Dioxide (21.0-32.0) mmol/L BUN (7-18) mg/dL Creatinine (0.51-1.17) mg/dL Est Cr Clr Drug Dosing mL/min Estimated GFR (MDRD) mL/min Glucose (74-106) mg/dL POC Glucose 112 H (65-110) mg/dl Calcium (8.5-10.1) mg/dL Result Diagrams: 07/10/18 06:48 07/10/18 06:48 Orders Last 24hrs: Active Orders 24 hr Category Date Time Status Incision Care [Wound Care] [RC] 08,20 Care 07/09/18 20:00 Active RT Aerosol Therapy [RC] .PRN Care 07/10/18 03:59 Active Ready for Discharge [RC] PER UNIT ROUTINE Care 07/10/18 09:00 Active Assessment/Plan Comment:: Admission note reviewed. Agree with plan.
[2018-07-09] MEDS ORDERED: metroNIDAZOLE/Normal Saline 500 MG in Premix Bag 1 BAG IV SCH (18:00)
[2018-07-09] MEDS: Carvedilol 25 MG Tab PO SCH (18:17)
[2018-07-09] MEDS: Lactobacillus Rhamnosus GG (Probiotic) Cap PO SCH (18:18)
[2018-07-09] MEDS: Pantoprazole 40 MG Tab.CR PO SCH (18:18)
[2018-07-09] MEDS: Nystatin Topical Powder 15 GM Bottle TOP SCH (18:20)
[2018-07-09] MEDS: hydrALAZINE 50 MG Tab PO SCH (18:24)
[2018-07-09] MEDS: Sodium Chloride 0.9% 10 ML Syringe FLUSH SCH ×2 (20:30→20:37)
[2018-07-09] MEDS: metroNIDAZOLE/Normal Saline 500 MG in Premix Bag 1 BAG IV SCH (20:30)
[2018-07-10] MEDS: Sodium Chloride 0.9% 10 ML Syringe FLUSH SCH ×3 (00:34→04:13)
[2018-07-10] MEDS: Ondansetron 4 MG/2 ML SDV IVPUSH PRN ×2 (00:34→04:13)
[2018-07-10] MEDS: metroNIDAZOLE/Normal Saline 500 MG in Premix Bag 1 BAG IV SCH (03:49)
[2018-07-10] MEDS: Acetaminophen 325 MG Tab PO PRN ×2 (04:13→08:52)
[2018-07-10] MEDS: Albuterol/Ipratropium 3.0-0.5 MG/3 ML Neb Soln NEB PRN ×2 (04:13→09:00)
[2018-07-10] MEDS ORDERED: Aspirin 81 MG Tab.Chew PO SCH (08:00)
[2018-07-10] MEDS ORDERED: Enoxaparin 30 MG/0.3 ML Syringe SUBCUT SCH (08:00)
[2018-07-10] MEDS ORDERED: amLODIPine 5 MG Tab PO SCH (08:00)
[2018-07-10] MEDS ORDERED: Magnesium Oxide 400 MG Tab PO SCH (08:00)
[2018-07-10] MEDS ORDERED: Finasteride 5 MG Tab PO SCH (08:00)
[2018-07-10] MEDS ORDERED: Multivitamin Tab PO SCH (08:00)
[2018-07-10] MEDS ORDERED: Losartan 50 MG Tab PO SCH (08:00)
[2018-07-10] MEDS ORDERED: Ferrous Sulfate 325 MG Tab PO SCH (08:00)
[2018-07-10] MEDS ORDERED: Doxazosin 4 MG Tab PO SCH (08:00)
[2018-07-10 08:34] VITALS: BP 143/66
--- NOTE | 2018-07-10 08:46 | PCM.DCSUM1 ---
<Milly Barrera - Last Filed: 07/10/18 09:09> Discharge Summary - Hospital Course Free Text/Narrative:: Patient is being transferred to [facility] for re-evaluation and treatment. He has progressively been declining. Initially, he received fluids to help improve the creatinine, which was unsuccessful. Recommendation was give to administer IV Lasix per [facility] hospitalist. This was completed and was not effective. Today, his creatinine is worsened and his WBC count is now elevated at 11.2 while on Daptomycin and Flagyl. He did receive levaquin 500mg IV one time for a temperature and cough in thinking that pneumonia was occurring. Chest xray was completed and did not confirm pneumonia, so Levaquin was stopped. patient now has increased confusion, along with nausea and vomiting. Patient will be transferred back to [facility] for stabilization. - Discharge Data Discharge Date: 07/10/18 Discharge Disposition: DC/Tfer to [facility] 02 Condition: Good - Discharge Diagnosis/Problem(s) (1) Acute renal failure SNOMED Code(s): 88714126 ICD Code: N17.9 - ACUTE KIDNEY FAILURE, UNSPECIFIED Status: Acute Problem Details: We will monitor creatinine and BUN level for decline, maintain fluid level Qualifiers: Acute renal failure type: unspecified Qualified Code(s): N17.9 - Acute kidney failure, unspecified (2) Osteomyelitis SNOMED Code(s): 72854243 ICD Code: M86.9 - OSTEOMYELITIS, UNSPECIFIED Status: Acute Priority: High Onset Date: ~06/07/18 Problem Details: Continue to complete IV antibiotics per orders of ID at [place]. Wound vac will be in place and changed on [facility]. measurements and healing progress will be monitored. Patient will remain asymptomatic for further signs of infection. Qualifiers: Osteomyelitis type: other chronic Osteomyelitis location: foot Laterality : left Qualified Code(s): M86.672 - Other chronic osteomyelitis, left ankle and foot (3) Hypertension SNOMED Code(s): 29168678 ICD Code: I10 - ESSENTIAL (PRIMARY) HYPERTENSION Status: Acute Priority: High Problem Details: maintain a blood pressure of less than 140/90 with prescribed medication. medications were adjusted at [facility] during recent hospitalization. We will continue to monitor BP Qualifiers: Hypertension type: essential hypertension Qualified Code(s): I10 - Essential (primary) hypertension - Patient Summary/Data Consults: Consultations 07/09/18 17:45 OT Evaluation and Treatment [CONS] Routine PT Evaluation and Treatment [CONS] Routine - Patient Instructions Diet: Diabetic Diet Activity: As Tolerated Showering/Bathing: May Shower Wound/Incision Care: Keep Operative Site/Wound Site Clean and Dry Wound/Incision, Other: Change wound vac every 72 hours - Discharge Plan *PRESCRIPTION DRUG MONITORING PROGRAM REVIEWED*: Not Applicable *COPY OF PRESCRIPTION DRUG MONITORING REPORT IN PATIENT MILAN: Not Applicable Home Medications: Home Meds Acetaminophen [Tylenol] 650 mg PO Q4H PRN 07/10/18 [History] Aspirin 81 mg PO DAILY 07/10/18 [History] Carvedilol [Coreg] 25 mg PO BID 07/10/18 [History] DAPTOmycin [Daptomycin] 684 mg IV Q48H 07/10/18 [History] Dextromethorphan/guaiFENesin [Robitussin DM] 10 ml PO Q4H PRN 07/10/18 [History] Doxazosin [Doxazosin Mesylate] 4 mg PO BID 07/10/18 [History] Enoxaparin [Lovenox] 40 mg SUBCUT DAILY@18 07/10/18 [History] Ferrous Sulfate 325 mg PO DAILY 07/10/18 [History] Finasteride [Proscar] 5 mg PO DAILY 07/10/18 [History] Heparin Sodium,Porcine/PF [Heparin 500 Unit/5 ml (100/ml)] 300 unit IV ASDIRECTED PRN 07/10/18 [History] Heparin Sodium,Porcine/PF [Heparin 500 Unit/5 ml (100/ml)] 300 unit IV DAILY@ 1030 07/10/18 [History] Lactobacillus Rhamnosus R0011 [Probiotic Digestive Care] 1 each PO BID 07/10/18 [History] Losartan [Cozaar] 25 mg PO DAILY 07/10/18 [History] Magnesium Oxide [Magnesium] 400 mg PO DAILY 07/10/18 [History] Multivitamin [Multi-Day Vitamins] 1 each PO DAILY 07/10/18 [History] Nystatin [Nystop] 1 applic TP TID 07/10/18 [History] Ondansetron [Zofran] 4 mg IV Q6H PRN 07/10/18 [History] Pantoprazole Sodium [Protonix] 40 mg PO BID 07/10/18 [History] Sodium Chloride 0.9% [Saline Flush] 10 ml FLUSH 1030,20 07/10/18 [History] Sodium Chloride 0.9% [Saline Flush] 10 ml FLUSH ASDIRECTED PRN 07/10/18 [History ] Sodium Chloride [Saline Nasal [place]] 1 spray NS Q2H PRN 07/10/18 [History] Torsemide [Demadex] 40 mg PO BID 07/10/18 [History] amLODIPine Besylate [Norvasc] 10 mg PO DAILY 07/10/18 [History] hydrALAZINE HCl [Hydralazine HCl] 100 mg PO TID 07/10/18 [History] metroNIDAZOLE/Normal Saline [metroNIDAZOLE in NS Premix] 500 mg IV Q8H 07/10/18 [History] Oxygen Therapy Mode: Nasal Cannula Oxygen Flow Rate (L/min): 4 Maintain SPO2% less than: 90 - Discharge Summary/Plan Comment DC Time >30 min.: Yes - General Info Date of Service: 07/10/18 Functional Status: Reports: Pain Controlled - Review of Systems General: Reports: Fever, Weakness HEENT: Reports: No Symptoms, Glasses Pulmonary: Reports: Cough Cardiovascular: Reports: No Symptoms Gastrointestinal: Reports: Nausea, Vomiting Genitourinary: Reports: Incontinence Musculoskeletal: Reports: No Symptoms Skin: Reports: Other (wound) Neurological: Reports: Confusion Psychiatric: Reports: Confusion - Patient Data Vitals - Most Recent: Last Vital Signs Temp 100.1 F 07/10/18 08:00 Pulse 87 07/10/18 08:00 Resp 21 H 07/10/18 08:00 BP 143/66 H 07/10/18 08:00 Pulse Ox 94 L 07/10/18 08:00 Weight - Most Recent: 113.852 kg I&O - Last 24 hours: Intake & Output 07/09/18 07/10/18 07/10/18 22:59 06:59 14:59 Intake Total 1780 550 Output Total 550 Balance 1780 0 Lab Results - Last 24 hrs: Laboratory Results - last 24 hr 07/09/18 07/10/18 07/10/18 Range/Units 21:59 06:48 06:48 WBC 11.2 H (4.0-10.2) K/uL RBC 2.50 L (4.33-5.41) M/uL Hgb 7.2 L* (13.1-16.8) g/dL Hct 22.8 L* (39.0-49.0) % MCV 91.2 (84.0-98.0) fL MCH 28.8 (28.2-33.3) pg MCHC 31.6 L (31.7-36.0) g/dL RDW 17.0 H (11.2-14.1) % Plt Count 317 (150-350) K/uL Neut % (Auto) 87.0 H (45.0-80.0) % Lymph % (Auto) 6.8 L (10.0-50.0) % Falls % (Auto) 5.9 (2.0-14.0) % Eos % (Auto) 0.1 (0.0-5.0) % Baso % (Auto) 0.2 (0.0-2.0) % Neut # (Auto) 9.73 H (1.40-7.00) K/uL Lymph # (Auto) 0.76 (0.50-3.50) K/uL Falls # (Auto) 0.66 (0.00-1.00) K/uL Eos # (Auto) 0.01 (0.00-0.50) K/uL Baso # (Auto) 0.02 (0.00-0.20) K/uL Sodium 135 L (136-145) mmol/L Potassium 4.1 (3.5-5.1) mmol/L Chloride 103 (98-107) mmol/L Carbon Dioxide 21.7 (21.0-32.0) mmol/L BUN 28 H (7-18) mg/dL Creatinine 3.32 H* (0.51-1.17) mg/dL Est Cr Clr Drug Dosing 22.29 mL/min Estimated GFR (MDRD) 19 mL/min Glucose 112 H (74-106) mg/dL POC Glucose 146 H (65-110) mg/dl Calcium 8.0 L (8.5-10.1) mg/dL 07/10/18 Range/Units 07:17 WBC (4.0-10.2) K/uL RBC (4.33-5.41) M/uL Hgb (13.1-16.8) g/dL Hct (39.0-49.0) % MCV (84.0-98.0) fL MCH (28.2-33.3) pg MCHC (31.7-36.0) g/dL RDW (11.2-14.1) % Plt Count (150-350) K/uL Neut % (Auto) (45.0-80.0) % Lymph % (Auto) (10.0-50.0) % Falls % (Auto) (2.0-14.0) % Eos % (Auto) (0.0-5.0) % Baso % (Auto) (0.0-2.0) % Neut # (Auto) (1.40-7.00) K/uL Lymph # (Auto) (0.50-3.50) K/uL Falls # (Auto) (0.00-1.00) K/uL Eos # (Auto) (0.00-0.50) K/uL Baso # (Auto) (0.00-0.20) K/uL Sodium (136-145) mmol/L Potassium (3.5-5.1) mmol/L Chloride (98-107) mmol/L Carbon Dioxide (21.0-32.0) mmol/L BUN (7-18) mg/dL Creatinine (0.51-1.17) mg/dL Est Cr Clr Drug Dosing mL/min Estimated GFR (MDRD) mL/min Glucose (74-106) mg/dL POC Glucose 112 H (65-110) mg/dl Calcium (8.5-10.1) mg/dL Med Orders - Current: Current Medications Acetaminophen (Tylenol) 650 mg PO Q4H PRN PRN Reason: Fever Last Admin: 07/10/18 04:13 Dose: 650 mg Hydrocodone Bitart/Acetaminophen ([place] 325-5 Mg) 1 - 2 tab PO Q8H PRN PRN Reason: Pain Albuterol/Ipratropium (Duoneb 3.0-0.5 Mg/3 Ml) 3 ml NEB Q4H PRN PRN Reason: wheezing/Shortness of breath Last Admin: 07/10/18 04:13 Dose: 3 ml Amlodipine Besylate (Norvasc) 10 mg PO DAILY [facility] Aspirin (Aspirin) 81 mg PO DAILY [facility] Carvedilol (Coreg) 25 mg PO BIDMEALS [facility] Last Admin: 07/09/18 18:17 Dose: Not Given Doxazosin Mesylate (Cardura) 4 mg PO DAILY [facility] Enoxaparin Sodium (Lovenox) 30 mg SUBCUT DAILY [facility] Ferrous Sulfate (Ferrous Sulfate) 325 mg PO DAILY [facility] Finasteride (Proscar) 5 mg PO DAILY [facility] Heparin Sodium (Porcine) (Heparin Lock Flush 100 Units/Ml) 300 units FLUSH DAILY [facility] Hydralazine HCl (Apresoline) 50 mg PO TID [facility] Last Admin: 07/09/18 18:24 Dose: Not Given Daptomycin 684 mg/ Sodium (Chloride) 100 mls @ 200 mls/hr IV Q48H [facility] Metronidazole 500 mg/ Premix 100 mls @ 100 mls/hr IV Q8H [facility] Last Admin: 07/10/18 03:49 Dose: 100 mls/hr Lactobacillus Rhamnosus (Culturelle) 1 cap PO BID [facility] Last Admin: 07/09/18 18:18 Dose: Not Given Losartan Potassium (Cozaar) 25 mg PO DAILY [facility] Magnesium Oxide (Magnesium Oxide) 400 mg PO DAILY [facility] Multivitamins/Minerals/Vitamin C (Tab-A-Mayte) 1 tab PO DAILY [facility] Nystatin (Nystop) 0 gm TOP TID [facility] Last Admin: 07/09/18 18:20 Dose: Not Given Ondansetron HCl (Zofran) 4 mg IVPUSH Q4H PRN PRN Reason: Nausea/Vomiting Last Admin: 07/10/18 04:13 Dose: 4 mg Pantoprazole Sodium (Protonix) 40 mg PO BIDAC [facility] Last Admin: 07/09/18 18:18 Dose: Not Given Sodium Chloride (Saline Flush) 10 ml FLUSH ASDIRECTED [facility] Last Admin: 07/10/18 04:13 Dose: 10 ml Torsemide (Demadex) 40 mg PO BID [facility] Last Admin: 07/09/18 18:18 Dose: Not Given - Exam Quality Assessment: Reports: Supplemental Oxygen, Central Line/PICC, Urine Catheter General: Reports: Alert, Mild Distress HEENT: Reports: Pupils Equal, Pupils Reactive Neck: Reports: Supple Lungs: Reports: Crackles Cardiovascular: Reports: Regular Rate, Regular Rhythm GI/Abdominal Exam: Normal Bowel Sounds, Soft, Non-Tender Extremities: Pedal Edema Wound/Incisions: Reports: Other (wound vac in place) Psy/Mental Status: Reports: Alert, Other (confusion) <Alessandra Castaneda H - Last Filed: 07/10/18 21:00> Discharge Summary - Patient Summary/Data Consults: Consultations 07/09/18 17:45 OT Evaluation and Treatment [CONS] Routine PT Evaluation and Treatment [CONS] Routine - Discharge Summary/Plan Comment Discharge Summary/Plan Comment: Note reviewed. Agree with plan. - Patient Data Vitals - Most Recent: Last Vital Signs Temp 37.8 C 07/10/18 08:00 Pulse 87 07/10/18 08:51 Resp 21 H 07/10/18 08:00 BP 143/66 H 07/10/18 08:54 Pulse Ox 94 L 07/10/18 08:00 I&O - Last 24 hours: Intake & Output 07/10/18 07/10/18 07/10/18 06:59 14:59 22:59 Intake Total 550 120 Output Total 550 Balance 0 120 Lab Results - Last 24 hrs: Laboratory Results - last 24 hr 07/09/18 07/10/18 07/10/18 Range/Units 21:59 06:48 06:48 WBC 11.2 H (4.0-10.2) K/uL RBC 2.50 L (4.33-5.41) M/uL Hgb 7.2 L* (13.1-16.8) g/dL Hct 22.8 L* (39.0-49.0) % MCV 91.2 (84.0-98.0) fL MCH 28.8 (28.2-33.3) pg MCHC 31.6 L (31.7-36.0) g/dL RDW 17.0 H (11.2-14.1) % Plt Count 317 (150-350) K/uL Neut % (Auto) 87.0 H (45.0-80.0) % Lymph % (Auto) 6.8 L (10.0-50.0) % Falls % (Auto) 5.9 (2.0-14.0) % Eos % (Auto) 0.1 (0.0-5.0) % Baso % (Auto) 0.2 (0.0-2.0) % Neut # (Auto) 9.73 H (1.40-7.00) K/uL Lymph # (Auto) 0.76 (0.50-3.50) K/uL Falls # (Auto) 0.66 (0.00-1.00) K/uL Eos # (Auto) 0.01 (0.00-0.50) K/uL Baso # (Auto) 0.02 (0.00-0.20) K/uL Sodium 135 L (136-145) mmol/L Potassium 4.1 (3.5-5.1) mmol/L Chloride 103 (98-107) mmol/L Carbon Dioxide 21.7 (21.0-32.0) mmol/L BUN 28 H (7-18) mg/dL Creatinine 3.32 H* (0.51-1.17) mg/dL Est Cr Clr Drug Dosing 22.29 mL/min Estimated GFR (MDRD) 19 mL/min Glucose 112 H (74-106) mg/dL POC Glucose 146 H (65-110) mg/dl Calcium 8.0 L (8.5-10.1) mg/dL 07/10/18 Range/Units 07:17 WBC (4.0-10.2) K/uL RBC (4.33-5.41) M/uL Hgb (13.1-16.8) g/dL Hct (39.0-49.0) % MCV (84.0-98.0) fL MCH (28.2-33.3) pg MCHC (31.7-36.0) g/dL RDW (11.2-14.1) % Plt Count (150-350) K/uL Neut % (Auto) (45.0-80.0) % Lymph % (Auto) (10.0-50.0) % Falls % (Auto) (2.0-14.0) % Eos % (Auto) (0.0-5.0) % Baso % (Auto) (0.0-2.0) % Neut # (Auto) (1.40-7.00) K/uL Lymph # (Auto) (0.50-3.50) K/uL [place] # (Auto) (0.00-1.00) K/uL Eos # (Auto) (0.00-0.50) K/uL Baso # (Auto) (0.00-0.20) K/uL Sodium (136-145) mmol/L Potassium (3.5-5.1) mmol/L Chloride (98-107) mmol/L Carbon Dioxide (21.0-32.0) mmol/L BUN (7-18) mg/dL Creatinine (0.51-1.17) mg/dL Est Cr Clr Drug Dosing mL/min Estimated GFR (MDRD) mL/min Glucose (74-106) mg/dL POC Glucose 112 H (65-110) mg/dl Calcium (8.5-10.1) mg/dL Med Orders - Current: Current Medications Discontinued Medications Acetaminophen (Tylenol) 650 mg PO Q4H PRN PRN Reason: Fever Last Admin: 07/10/18 08:52 Dose: 650 mg Hydrocodone Bitart/Acetaminophen ([place] 325-5 Mg) 1 - 2 tab PO Q8H PRN PRN Reason: Pain Albuterol/Ipratropium (Duoneb 3.0-0.5 Mg/3 Ml) 3 ml NEB Q4H PRN PRN Reason: wheezing/Shortness of breath Last Admin: 07/10/18 09:00 Dose: 3 ml Amlodipine Besylate (Norvasc) 10 mg PO DAILY [facility] Last Admin: 07/10/18 08:51 Dose: 10 mg Aspirin (Aspirin) 81 mg PO DAILY [facility] Last Admin: 07/10/18 08:53 Dose: 81 mg Carvedilol (Coreg) 25 mg PO BIDMEALS [facility] Last Admin: 07/10/18 08:51 Dose: 25 mg Doxazosin Mesylate (Cardura) 4 mg PO DAILY [facility] Last Admin: 07/10/18 08:50 Dose: 4 mg Enoxaparin Sodium (Lovenox) 30 mg SUBCUT DAILY [facility] Last Admin: 07/10/18 09:21 Dose: Not Given Ferrous Sulfate (Ferrous Sulfate) 325 mg PO DAILY [facility] Last Admin: 07/10/18 08:55 Dose: 325 mg Finasteride (Proscar) 5 mg PO DAILY [facility] Last Admin: 07/10/18 08:54 Dose: 5 mg Heparin Sodium (Porcine) (Heparin Lock Flush 100 Units/Ml) 300 units FLUSH DAILY [facility] Hydralazine HCl (Apresoline) 50 mg PO TID [facility] Last Admin: 07/10/18 08:51 Dose: 50 mg Daptomycin 684 mg/ Sodium (Chloride) 100 mls @ 200 mls/hr IV Q48H [facility] Metronidazole 500 mg/ Premix 100 mls @ 100 mls/hr IV Q8H [facility] Last Admin: 07/10/18 03:49 Dose: 100 mls/hr Lactobacillus Rhamnosus (Culturelle) 1 cap PO BID [facility] Last Admin: 07/10/18 08:53 Dose: 1 cap Losartan Potassium (Cozaar) 25 mg PO DAILY [facility] Last Admin: 07/10/18 08:54 Dose: 25 mg Magnesium Oxide (Magnesium Oxide) 400 mg PO DAILY [facility] Last Admin: 07/10/18 08:53 Dose: 400 mg Multivitamins/Minerals/Vitamin C (Tab-A-Mayte) 1 tab PO DAILY [facility] Last Admin: 07/10/18 08:53 Dose: 1 tab Nystatin (Nystop) 0 gm TOP TID [facility] Last Admin: 07/10/18 08:55 Dose: 1 applic Ondansetron HCl (Zofran) 4 mg IVPUSH Q4H PRN PRN Reason: Nausea/Vomiting Last Admin: 07/10/18 04:13 Dose: 4 mg Pantoprazole Sodium (Protonix) 40 mg PO BIDAC [facility] Last Admin: 07/10/18 08:53 Dose: 40 mg Sodium Chloride (Saline Flush) 10 ml FLUSH ASDIRECTED [facility] Last Admin: 07/10/18 04:13 Dose: 10 ml Torsemide (Demadex) 40 mg PO BID [facility] Last Admin: 07/10/18 08:52 Dose: 40 mg
[2018-07-10] MEDS: Carvedilol 25 MG Tab PO SCH (08:51)
[2018-07-10] MEDS: hydrALAZINE 50 MG Tab PO SCH (08:51)
[2018-07-10] MEDS: Pantoprazole 40 MG Tab.CR PO SCH (08:53)
[2018-07-10] MEDS: Lactobacillus Rhamnosus GG (Probiotic) Cap PO SCH (08:53)
[2018-07-10] MEDS: Nystatin Topical Powder 15 GM Bottle TOP SCH (08:55)
[2018-07-11] MEDS ORDERED: DAPTOMYCIN IV SCH (10:00)
[2018-07-11] MEDS ORDERED: SODIUM CHLORIDE 0.9% IV SCH (10:00)
== END 2018-07-10 09:54 | DRG 469 ==
LOC: LL.MS 17:28
PROVIDERS: ADMIT Nurse Practitioner; ATTEND Family Medicine
DX: N17.9 Acute kidney failure, unspecified (principal); M86.672 Other chronic osteomyelitis, left ankle and foot; I10 Essential (primary) hypertension; H54.7 Unspecified visual loss; K21.9 Gastro-esophageal reflux disease without esophagitis; M19.90 Unspecified osteoarthritis, unspecified site; E11.42 Type 2 diabetes mellitus with diabetic polyneuropathy; E66.9 Obesity, unspecified; D64.9 Anemia, unspecified; Z68.36 Body mass index [BMI] 36.0-36.9, adult; Z79.82 Long term (current) use of aspirin; Z79.01 Long term (current) use of anticoagulants; Z79.899 Other long term (current) drug therapy; Z88.0 Allergy status to penicillin; Z88.8 Allergy status to other drugs, medicaments and biological substances; Z89.421 Acquired absence of other right toe(s); Z98.1 Arthrodesis status
CPT/HCPCS: 36415; 80048; 82962; 85025; 94640; A9270-GY; J2405; J3490; J7620-GY

== ENCOUNTER 2018-07-20 09:05 | Inpatient (IN) | payer BC, MEDICARE ==
[2018-07-20] MEDS ORDERED: Loperamide 2 MG Tab PO ONE (13:25)
--- NOTE | 2018-07-20 15:34 | PCM.HP ---
H&P History of Present Illness - General Date of Service: 07/20/18 Admit Problem/Dx: Admission Diagnosis/Problem Admission Diagnosis/Problem Osteomyelitis of foot Patient is a 68-year-old with known history of diabetes and osteomyelitis recent history of exacerbation of COPD renal failure was hospitalized at [facility] secondary to overall decompensation now stable and was transferred to for swing bed care Source of Information: Patient, RN Notes Reviewed, Other (Potentials chart) - History of Present Illness Onset of Symptoms: Reports: Unknown/Unsure Duration of Symptoms: Reports: Chronic, Improving Location: Reports: Generalized - Related Data Allergies/Adverse Reactions: Allergies Allergy/AdvReac Type Severity Reaction Status Date / Time atorvastatin [From Lipitor] Allergy Cannot Verified 07/10/18 05:43 Remember Penicillins Allergy Cannot Verified 07/10/18 05:43 Remember rosuvastatin [From Crestor] Allergy Cannot Verified 07/10/18 05:43 Remember simvastatin Allergy Cannot Verified 07/10/18 05:43 Remember Home Medications: Home Meds Acetaminophen [Tylenol] 650 mg PO Q4H PRN 07/10/18 [History] Aspirin 81 mg PO DAILY 07/10/18 [History] Carvedilol [Coreg] 25 mg PO BIDMEALS 07/10/18 [History] Enoxaparin [Lovenox] 40 mg SUBCUT DAILY@18 07/10/18 [History] Finasteride [Proscar] 5 mg PO DAILY 07/10/18 [History] Losartan [Cozaar] 25 mg PO DAILY 07/10/18 [History] Magnesium Oxide [Magnesium] 400 mg PO DAILY 07/10/18 [History] Nystatin [Nystop] 1 applic TP TID 07/10/18 [History] Pantoprazole Sodium [Protonix] 40 mg PO BID 07/10/18 [History] hydrALAZINE HCl [Hydralazine HCl] 100 mg PO TID 07/10/18 [History] Bumetanide [Bumex] 1 mg PO BID@08,16 07/20/18 [History] Ciprofloxacin HCl [Cipro] 500 mg PO BID 07/20/18 [History] Clindamycin HCl [Cleocin] 450 mg PO TID 07/20/18 [History] Ferrous Sulfate 325 mg PO TIDMEALS 07/20/18 [History] Fluconazole [Diflucan] 400 mg PO DAILY 07/20/18 [History] Magnesium Chloride [Mag-64] 128 mg PO DAILY 07/20/18 [History] Saccharomyces Boulardii [Probiotic] 250 mg PO BID 07/20/18 [History] Torsemide [Demadex] 20 mg PO DAILY 07/20/18 [History] amLODIPine Besylate [Amlodipine Besylate] 5 mg PO DAILY 07/20/18 [History] Past Medical History HEENT History: Reports: Impaired Vision Other HEENT History: glasses Cardiovascular History: Reports: None, Hypertension Respiratory History: Reports: None Gastrointestinal History: Reports: GERD, Hemorrhoids Genitourinary History: Reports: Acute Renal Failure, Renal Disease, Urinary Incontinence Musculoskeletal History: Reports: Arthritis Neurological History: Reports: Neuropathy, Diabetic Psychiatric History: Reports: None Endocrine/Metabolic History: Reports: Diabetes, Type II, Obesity/BMI 30+ Hematologic History: Reports: Anemia Immunologic History: Reports: None Oncologic (Cancer) History: Reports: None Dermatologic History: Reports: Other (See Below) Other Dermatologic History: 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 - Infectious Disease History Infectious Disease History: Reports: None, Other (See Below) (Osteomyelitis to LLE) - Past Surgical History HEENT Surgical History: Reports: LASIK Other HEENT Surgeries/Procedures: left eye GI Surgical History: Reports: Colonoscopy Neurological Surgical History: Reports: C-Spine, Spinal Fusion Other Neurological Surgeries/Procedures: C-4-5-6 fusion, mesh tx 2005 Musculoskeletal Surgical History: Reports: Other (See Below) Other Musculoskeletal Surgeries/Procedures:: right foot 5th toe ampution 2016 Social & Family History - Family History Family Medical History: Unobtainable - Caffeine Use Caffeine Use: Reports: Coffee H&P Review of Systems - Review of Systems: Review Of Systems: See Below General: Reports: Weakness HEENT: Reports: No Symptoms, Glasses Pulmonary: Reports: Shortness of Breath, Cough Cardiovascular: Reports: No Symptoms Genitourinary: Reports: Incontinence Musculoskeletal: Reports: No Symptoms, Other (Status post flap to cover bone) Skin: Reports: Rash, Change in Hair/Nails Psychiatric: Reports: No Symptoms Neurological: Reports: No Symptoms Hematologic/Lymphatic: Reports: Other Immunologic: Reports: No Symptoms Exam - Exam Exam: See Below - Vital Signs Weight: 253 lb 8.505 oz - Exam Quality Assessment: Supplemental Oxygen, DVT Prophylaxis General: Alert, Oriented, Cooperative HEENT: Conjunctiva Clear, EACs Clear, Hearing Intact Neck: Supple, Trachea Midline, 2 Lungs: Decreased Breath Sounds, Rales, Wheezing Cardiovascular: Regular Rate, Regular Rhythm (Male) Exam: Deferred Rectal (Males) Exam: Deferred Back Exam: Decreased Range of Motion Extremities: Pedal Edema, Slow Capillary Refill Skin: Warm, Dry Psychiatric: Alert, Normal Affect, Normal Mood - Problem List (1) Osteomyelitis SNOMED Code(s): 69256265 ICD Code: M86.9 - OSTEOMYELITIS, UNSPECIFIED Status: Acute Priority: High Current Visit: No Onset Date: ~06/07/18 Problem Details: Continue to complete IV antibiotics per orders of ID at [place]. Wound vac will be in place and changed on [facility]. measurements and healing progress will be monitored. Patient will remain asymptomatic for further signs of infection. Qualifiers: Osteomyelitis type: other chronic Osteomyelitis location: foot Laterality : left Qualified Code(s): M86.672 - Other chronic osteomyelitis, left ankle and foot (2) Hypertension SNOMED Code(s): 04154504 ICD Code: I10 - ESSENTIAL (PRIMARY) HYPERTENSION Status: Acute Priority: High Current Visit: No Problem Details: maintain a blood pressure of less than 140/90 with prescribed medication. medications were adjusted at [facility] during recent hospitalization. We will continue to monitor BP Qualifiers: Hypertension type: essential hypertension Qualified Code(s): I10 - Essential (primary) hypertension (3) Diabetes SNOMED Code(s): 62732280 ICD Code: E11.9 - TYPE 2 DIABETES MELLITUS WITHOUT COMPLICATIONS Status: Acute Priority: High Current Visit: No Problem Details: Monitor patient's blood sugars QID. Use sliding scale insulin as needed for elevated BS. patient is no longer on insulin, per discharge orders. His BS were 100-140 without medication. We will monitor this. 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 Diabetes mellitus complication status: with skin complications Diabetes mellitus complication detail: with foot ulcer Qualified Code(s): E11.621 - Type 2 diabetes mellitus with foot ulcer; L97.509 - Non-pressure chronic ulcer of other part of unspecified foot with unspecified severity; Z79.4 - half-way (current) use of insulin Problem List Initiated/Reviewed/Updated: Yes Orders Last 24hrs: Active Orders 24 hr Category Date Time Status Patient Status [ADT] Routine ADT 07/20/18 15:00 Active Bedrest Bedside Commode [RC] ASDIRECTED Care 07/20/18 14:25 Inactive Bedrest Bedside Commode [RC] ASDIRECTED Care 07/20/18 15:16 Active Blood Glucose Check, Bedside [RC] BIDMEALS Care 07/20/18 17:00 Active Communication Order [RC] ASDIRECTED Care 07/20/18 14:51 Active Communication Order [RC] DAILY Care 07/20/18 14:45 Active Diabetes Education [RC] Click to Edit Care 07/20/18 14:34 Inactive Height and Weight [RC] UPON Care 07/20/18 14:25 Inactive Height and Weight [RC] UPON Care 07/20/18 15:19 Active IS (RT) [RT Incentive Spirometry] [RC] ASDIRECTED Care 07/20/18 14:50 Active Intake and Output [RC] ASDIRECTED Care 07/20/18 15:20 Active Intake and Output [RC] QSHIFT Care 07/20/18 14:32 Inactive Oxygen Therapy Adult [Oxygen Therapy] [RC] PRN Care 07/20/18 15:20 Active Oxygen Therapy [RC] CONTINUOUS Care 07/20/18 14:48 Active Oxygen Therapy [RC] PRN Care 07/20/18 14:25 Inactive VTE/DVT Education [RC] PER UNIT ROUTINE Care 07/20/18 14:25 Inactive VTE/DVT Education [RC] PER UNIT ROUTINE Care 07/20/18 15:21 Active Vital Signs [RC] [id number] Care 07/20/18 18:00 Active Vital Signs [RC] Q12HR Care 07/20/18 14:25 Inactive ADA Diabetic [[place] [employer] Diet] [DIET Diet 07/20/18 Dinner Active ] Acetaminophen [Tylenol] Med 07/20/18 14:36 Active 650 mg PO Q4H PRN Aspirin Med 07/21/18 08:00 Active 81 mg PO DAILY Bumetanide [Bumex] Med 07/20/18 16:00 Active 1 mg PO BID@08,16 Carvedilol [Coreg] Med 07/20/18 17:30 Active 25 mg PO BIDMEALS Ciprofloxacin [Ciprofloxacin HCl] Med 07/20/18 20:00 Active 250 mg PO Q12H Clindamycin HCl [Cleocin] Med 07/20/18 14:00 Active 450 mg PO TID Enoxaparin [Lovenox] Med 07/20/18 18:00 Active 30 mg SUBCUT DAILY@18 Ferrous Sulfate Med 07/20/18 18:00 Active 325 mg PO TIDMEALS Finasteride [Proscar] Med 07/20/18 20:00 Active 5 mg PO DAILY Fluconazole [Diflucan] Med 07/20/18 14:45 Active 400 mg PO DAILY Lactobacillus Rhamnosus GG [Culturelle] Med 07/20/18 18:00 Active 1 cap PO BID Losartan [Cozaar] Med 07/21/18 08:00 Active 25 mg PO DAILY Magnesium Oxide Med 07/20/18 15:15 Active 400 mg PO DAILY Nystatin [Nystop] Med 07/20/18 18:00 Active 0 gm TOP TID Pantoprazole [ProTONIX] Med 07/20/18 18:00 Active 40 mg PO BID Torsemide [Demadex] Med 07/20/18 15:15 Active 20 mg PO DAILY amLODIPine [Norvasc] Med 07/21/18 08:00 Active 5 mg PO DAILY hydrALAZINE [Apresoline] Med 07/20/18 18:00 Active 100 mg PO TID Code Status [Resuscitation Status] Routine Resus Stat 07/20/18 15:03 Ordered Medication Orders Acetaminophen (Tylenol) 650 mg PO Q4H PRN PRN Reason: Pain/Fever Amlodipine Besylate (Norvasc) 5 mg PO DAILY [facility] Aspirin (Aspirin) 81 mg PO DAILY [facility] Bumetanide (Bumex) 1 mg PO BID@08,16 [facility] Carvedilol (Coreg) 25 mg PO BIDMEALS [facility] Ciprofloxacin (Ciprofloxacin Hcl) 250 mg PO Q12H [facility] Clindamycin HCl (Cleocin) 450 mg PO TID [facility] Enoxaparin Sodium (Lovenox) 30 mg SUBCUT DAILY@18 [facility] Ferrous Sulfate (Ferrous Sulfate) 325 mg PO TIDMEALS [facility] Finasteride (Proscar) 5 mg PO DAILY [facility] Fluconazole (Diflucan) 400 mg PO DAILY [facility] Hydralazine HCl (Apresoline) 100 mg PO TID [facility] Lactobacillus Rhamnosus (Culturelle) 1 cap PO BID [facility] Losartan Potassium (Cozaar) 25 mg PO DAILY [facility] Magnesium Oxide (Magnesium Oxide) 400 mg PO DAILY [facility] Nystatin (Nystop) 0 gm TOP TID [facility] Pantoprazole Sodium (Protonix) 40 mg PO BID [facility] Torsemide (Demadex) 20 mg PO DAILY [facility]
[2018-07-20] MEDS ORDERED: Loperamide 2 MG Tab ONE (15:50)
[2018-07-20] MEDS: Fluconazole 200 MG Tab PO SCH (15:51)
[2018-07-20] MEDS: Clindamycin HCl 150 MG Cap PO SCH ×2 (15:52→17:25)
[2018-07-20] MEDS: Magnesium Oxide 400 MG Tab PO SCH (15:52)
[2018-07-20] MEDS: Bumetanide 1 MG Tab PO SCH (15:52)
[2018-07-20] MEDS: Pantoprazole 40 MG Tab.CR PO SCH (17:25)
[2018-07-20] MEDS: Carvedilol 25 MG Tab PO SCH (17:26)
[2018-07-20] MEDS: Lactobacillus Rhamnosus GG (Probiotic) Cap PO SCH (17:26)
[2018-07-20] MEDS: Ferrous Sulfate 325 MG Tab PO SCH (17:26)
[2018-07-20] MEDS: Enoxaparin 30 MG/0.3 ML Syringe SUBCUT SCH (17:26)
[2018-07-20] MEDS: hydrALAZINE 50 MG Tab PO SCH (17:32)
[2018-07-20] MEDS: Nystatin Topical Powder 15 GM Bottle TOP SCH (17:33)
[2018-07-20] MEDS: Ciprofloxacin 500 MG Tab PO SCH (19:10)
[2018-07-20] MEDS: Finasteride 5 MG Tab PO SCH (19:10)
[2018-07-20] MEDS ORDERED: Ciprofloxacin 500 MG Tab PO SCH (22:00)
[2018-07-21] MEDS: Clindamycin HCl 150 MG Cap PO SCH ×3 (07:48→17:22)
[2018-07-21] MEDS: amLODIPine 5 MG Tab PO SCH (07:48)
[2018-07-21] MEDS: Ciprofloxacin 500 MG Tab PO SCH ×2 (07:49→20:31)
[2018-07-21] MEDS: Carvedilol 25 MG Tab PO SCH ×2 (07:49→17:23)
[2018-07-21] MEDS: Lactobacillus Rhamnosus GG (Probiotic) Cap PO SCH ×2 (07:49→17:24)
[2018-07-21] MEDS: Magnesium Oxide 400 MG Tab PO SCH (07:49)
[2018-07-21] MEDS: hydrALAZINE 50 MG Tab PO SCH ×3 (07:50→17:24)
[2018-07-21] MEDS: Ferrous Sulfate 325 MG Tab PO SCH ×3 (07:50→17:23)
[2018-07-21] MEDS: Fluconazole 200 MG Tab PO SCH (07:51)
[2018-07-21] MEDS: Losartan 50 MG Tab PO SCH (07:51)
[2018-07-21] MEDS: Bumetanide 1 MG Tab PO SCH ×2 (07:52→15:27)
[2018-07-21] MEDS: Finasteride 5 MG Tab PO SCH (07:52)
[2018-07-21] MEDS: Pantoprazole 40 MG Tab.CR PO SCH ×2 (07:52→17:22)
[2018-07-21] MEDS: Aspirin 81 MG Tab.Chew PO SCH (07:53)
[2018-07-21] MEDS: Nystatin Topical Powder 15 GM Bottle TOP SCH ×3 (07:54→17:27)
[2018-07-21] MEDS ORDERED: MAGNESIUM CHLORIDE PO SCH (08:00)
[2018-07-21] MEDS ORDERED: Enoxaparin 40 MG/0.4 ML Syringe SUBCUT SCH (08:00)
[2018-07-21] MEDS: Loperamide 2 MG Tab PO PRN (15:29)
[2018-07-21] MEDS: Enoxaparin 30 MG/0.3 ML Syringe SUBCUT SCH (17:24)
[2018-07-21] MEDS: Acetaminophen 325 MG Tab PO PRN (17:33)
[2018-07-21] MEDS: Albuterol/Ipratropium 3.0-0.5 MG/3 ML Neb Soln NEB SCH (20:31)
[2018-07-22] MEDS: Ferrous Sulfate 325 MG Tab PO SCH ×3 (08:36→17:41)
[2018-07-22] MEDS: Albuterol/Ipratropium 3.0-0.5 MG/3 ML Neb Soln NEB SCH ×5 (08:36→19:16)
[2018-07-22] MEDS: Clindamycin HCl 150 MG Cap PO SCH ×3 (08:36→17:39)
[2018-07-22] MEDS: Fluconazole 200 MG Tab PO SCH (08:36)
[2018-07-22] MEDS: amLODIPine 5 MG Tab PO SCH (08:37)
[2018-07-22] MEDS: hydrALAZINE 50 MG Tab PO SCH ×3 (08:37→17:40)
[2018-07-22] MEDS: Bumetanide 1 MG Tab PO SCH ×2 (08:38→17:41)
[2018-07-22] MEDS: Magnesium Oxide 400 MG Tab PO SCH (08:38)
[2018-07-22] MEDS: Carvedilol 25 MG Tab PO SCH ×2 (08:38→17:40)
[2018-07-22] MEDS: Finasteride 5 MG Tab PO SCH (08:38)
[2018-07-22] MEDS: Pantoprazole 40 MG Tab.CR PO SCH ×2 (08:38→17:41)
[2018-07-22] MEDS: Lactobacillus Rhamnosus GG (Probiotic) Cap PO SCH ×2 (08:38→17:40)
[2018-07-22] MEDS: Losartan 50 MG Tab PO SCH (08:39)
[2018-07-22] MEDS: Ciprofloxacin 500 MG Tab PO SCH ×2 (08:39→19:17)
[2018-07-22] MEDS: Aspirin 81 MG Tab.Chew PO SCH (08:39)
[2018-07-22] MEDS: Nystatin Topical Powder 15 GM Bottle TOP SCH ×3 (08:40→17:42)
[2018-07-22] MEDS: Promethazine 25 MG Tab PO PRN (12:03)
[2018-07-22] MEDS: Enoxaparin 30 MG/0.3 ML Syringe SUBCUT SCH (17:42)
[2018-07-23] MEDS: Acetaminophen 325 MG Tab PO PRN ×2 (02:01→08:40)
[2018-07-23] MEDS: Nystatin Topical Powder 15 GM Bottle TOP SCH ×3 (08:33→17:19)
[2018-07-23] MEDS: Clindamycin HCl 150 MG Cap PO SCH ×3 (08:35→17:18)
[2018-07-23] MEDS: Carvedilol 25 MG Tab PO SCH ×2 (08:35→17:19)
[2018-07-23] MEDS: Albuterol/Ipratropium 3.0-0.5 MG/3 ML Neb Soln NEB SCH ×4 (08:35→19:27)
[2018-07-23] MEDS: Pantoprazole 40 MG Tab.CR PO SCH ×2 (08:36→17:19)
[2018-07-23] MEDS: Magnesium Oxide 400 MG Tab PO SCH (08:36)
[2018-07-23] MEDS: Finasteride 5 MG Tab PO SCH (08:36)
[2018-07-23] MEDS: amLODIPine 5 MG Tab PO SCH (08:36)
[2018-07-23] MEDS: Ciprofloxacin 500 MG Tab PO SCH ×2 (08:37→19:26)
[2018-07-23] MEDS: Fluconazole 200 MG Tab PO SCH (08:37)
[2018-07-23] MEDS: Ferrous Sulfate 325 MG Tab PO SCH ×3 (08:38→17:20)
[2018-07-23] MEDS: hydrALAZINE 50 MG Tab PO SCH ×3 (08:38→17:18)
[2018-07-23] MEDS: Bumetanide 1 MG Tab PO SCH ×2 (08:38→16:15)
[2018-07-23] MEDS: Aspirin 81 MG Tab.Chew PO SCH (08:38)
[2018-07-23] MEDS: Lactobacillus Rhamnosus GG (Probiotic) Cap PO SCH ×2 (08:39→17:18)
[2018-07-23] MEDS: Losartan 50 MG Tab PO SCH (08:39)
[2018-07-23] MEDS: Enoxaparin 30 MG/0.3 ML Syringe SUBCUT SCH (17:19)
[2018-07-24] MEDS: Loperamide 2 MG Tab PO PRN ×2 (01:10→07:52)
[2018-07-24] MEDS: Albuterol/Ipratropium 3.0-0.5 MG/3 ML Neb Soln NEB SCH ×4 (07:50→19:43)
[2018-07-24] MEDS: Fluconazole 200 MG Tab PO SCH (07:50)
[2018-07-24] MEDS: Pantoprazole 40 MG Tab.CR PO SCH ×2 (07:51→17:36)
[2018-07-24] MEDS: Losartan 50 MG Tab PO SCH (07:51)
[2018-07-24] MEDS: Carvedilol 25 MG Tab PO SCH ×2 (07:51→17:37)
[2018-07-24] MEDS: Clindamycin HCl 150 MG Cap PO SCH ×3 (07:51→17:37)
[2018-07-24] MEDS: Finasteride 5 MG Tab PO SCH (07:52)
[2018-07-24] MEDS: Bumetanide 1 MG Tab PO SCH ×2 (07:52→15:41)
[2018-07-24] MEDS: Aspirin 81 MG Tab.Chew PO SCH (07:52)
[2018-07-24] MEDS: Ferrous Sulfate 325 MG Tab PO SCH ×3 (07:52→17:36)
[2018-07-24] MEDS: Lactobacillus Rhamnosus GG (Probiotic) Cap PO SCH ×2 (07:52→17:38)
[2018-07-24] MEDS: amLODIPine 5 MG Tab PO SCH (07:52)
[2018-07-24] MEDS: Magnesium Oxide 400 MG Tab PO SCH (07:52)
[2018-07-24] MEDS: hydrALAZINE 50 MG Tab PO SCH ×3 (07:52→17:36)
[2018-07-24] MEDS: Ciprofloxacin 500 MG Tab PO SCH ×2 (07:52→19:43)
[2018-07-24] MEDS: Nystatin Topical Powder 15 GM Bottle TOP SCH ×3 (07:53→17:42)
[2018-07-24] MEDS: Enoxaparin 30 MG/0.3 ML Syringe SUBCUT SCH (17:33)
[2018-07-24] MEDS: Promethazine 25 MG Tab PO PRN (17:38)
[2018-07-25] MEDS: Carvedilol 25 MG Tab PO SCH ×2 (08:12→17:36)
[2018-07-25] MEDS: hydrALAZINE 50 MG Tab PO SCH ×3 (08:12→17:33)
[2018-07-25] MEDS: Aspirin 81 MG Tab.Chew PO SCH (08:13)
[2018-07-25] MEDS: Bumetanide 1 MG Tab PO SCH ×2 (08:13→16:49)
[2018-07-25] MEDS: Ciprofloxacin 500 MG Tab PO SCH ×2 (08:13→20:07)
[2018-07-25] MEDS: Clindamycin HCl 150 MG Cap PO SCH ×3 (08:14→17:34)
[2018-07-25] MEDS: Losartan 50 MG Tab PO SCH (08:14)
[2018-07-25] MEDS: Lactobacillus Rhamnosus GG (Probiotic) Cap PO SCH ×2 (08:15→17:34)
[2018-07-25] MEDS: Albuterol/Ipratropium 3.0-0.5 MG/3 ML Neb Soln NEB SCH ×4 (08:15→20:06)
[2018-07-25] MEDS: Fluconazole 200 MG Tab PO SCH (08:15)
[2018-07-25] MEDS: Ferrous Sulfate 325 MG Tab PO SCH ×3 (08:15→17:34)
[2018-07-25] MEDS: Nystatin Topical Powder 15 GM Bottle TOP SCH ×3 (08:16→17:35)
[2018-07-25] MEDS: Finasteride 5 MG Tab PO SCH (08:16)
[2018-07-25] MEDS: Pantoprazole 40 MG Tab.CR PO SCH ×2 (08:16→17:35)
[2018-07-25] MEDS: Magnesium Oxide 400 MG Tab PO SCH (08:16)
[2018-07-25] MEDS: amLODIPine 5 MG Tab PO SCH (08:16)
[2018-07-25] MEDS: Enoxaparin 30 MG/0.3 ML Syringe SUBCUT SCH (17:35)
[2018-07-26] MEDS: Finasteride 5 MG Tab PO SCH (08:10)
[2018-07-26] MEDS: Fluconazole 200 MG Tab PO SCH (08:10)
[2018-07-26] MEDS: amLODIPine 5 MG Tab PO SCH (08:11)
[2018-07-26] MEDS: Lactobacillus Rhamnosus GG (Probiotic) Cap PO SCH ×2 (08:11→18:01)
[2018-07-26] MEDS: Ferrous Sulfate 325 MG Tab PO SCH ×3 (08:11→18:02)
[2018-07-26] MEDS: Nystatin Topical Powder 15 GM Bottle TOP SCH ×3 (08:11→18:19)
[2018-07-26] MEDS: hydrALAZINE 50 MG Tab PO SCH ×3 (08:11→18:00)
[2018-07-26] MEDS: Clindamycin HCl 150 MG Cap PO SCH ×3 (08:11→18:01)
[2018-07-26] MEDS: Ciprofloxacin 500 MG Tab PO SCH ×2 (08:11→19:43)
[2018-07-26] MEDS: Albuterol/Ipratropium 3.0-0.5 MG/3 ML Neb Soln NEB SCH ×4 (08:11→19:43)
[2018-07-26] MEDS: Losartan 50 MG Tab PO SCH (08:12)
[2018-07-26] MEDS: Bumetanide 1 MG Tab PO SCH ×2 (08:12→16:16)
[2018-07-26] MEDS: Aspirin 81 MG Tab.Chew PO SCH (08:12)
[2018-07-26] MEDS: Carvedilol 25 MG Tab PO SCH ×2 (08:12→17:58)
[2018-07-26] MEDS: Magnesium Oxide 400 MG Tab PO SCH (08:12)
[2018-07-26] MEDS: Pantoprazole 40 MG Tab.CR PO SCH ×2 (08:12→18:02)
[2018-07-26] MEDS: Promethazine 25 MG Tab PO PRN (09:53)
[2018-07-26] MEDS: Loperamide 2 MG Tab PO PRN (09:53)
[2018-07-26] MEDS: Enoxaparin 30 MG/0.3 ML Syringe SUBCUT SCH (18:03)
[2018-07-27] MEDS: Carvedilol 25 MG Tab PO SCH ×2 (07:55→16:54)
[2018-07-27] MEDS: Clindamycin HCl 150 MG Cap PO SCH ×3 (08:04→18:05)
[2018-07-27] MEDS: Losartan 50 MG Tab PO SCH (08:06)
[2018-07-27] MEDS: Lactobacillus Rhamnosus GG (Probiotic) Cap PO SCH ×2 (08:07→18:06)
[2018-07-27] MEDS: Fluconazole 200 MG Tab PO SCH (08:09)
[2018-07-27] MEDS: Albuterol/Ipratropium 3.0-0.5 MG/3 ML Neb Soln NEB SCH ×4 (08:10→19:43)
[2018-07-27] MEDS: Ferrous Sulfate 325 MG Tab PO SCH ×3 (08:11→18:06)
[2018-07-27] MEDS: Magnesium Oxide 400 MG Tab PO SCH (08:11)
[2018-07-27] MEDS: amLODIPine 5 MG Tab PO SCH (08:12)
[2018-07-27] MEDS: Nystatin Topical Powder 15 GM Bottle TOP SCH ×3 (08:13→18:08)
[2018-07-27] MEDS: Finasteride 5 MG Tab PO SCH (08:15)
[2018-07-27] MEDS: Pantoprazole 40 MG Tab.CR PO SCH ×2 (08:15→18:09)
[2018-07-27] MEDS: hydrALAZINE 50 MG Tab PO SCH ×3 (08:58→18:03)
[2018-07-27] MEDS: Aspirin 81 MG Tab.Chew PO SCH (08:59)
[2018-07-27] MEDS: Bumetanide 1 MG Tab PO SCH ×2 (09:00→16:53)
[2018-07-27] MEDS: Ciprofloxacin 500 MG Tab PO SCH ×2 (09:01→19:43)
[2018-07-27] MEDS: Enoxaparin 30 MG/0.3 ML Syringe SUBCUT SCH (18:07)
[2018-07-28] MEDS: Carvedilol 25 MG Tab PO SCH ×2 (09:52→16:45)
[2018-07-28] MEDS: Bumetanide 1 MG Tab PO SCH ×2 (09:53→16:44)
[2018-07-28] MEDS: Clindamycin HCl 150 MG Cap PO SCH ×3 (09:53→17:00)
[2018-07-28] MEDS: Losartan 50 MG Tab PO SCH (09:53)
[2018-07-28] MEDS: Ciprofloxacin 500 MG Tab PO SCH ×2 (09:53→19:28)
[2018-07-28] MEDS: hydrALAZINE 50 MG Tab PO SCH ×3 (09:53→16:59)
[2018-07-28] MEDS: Aspirin 81 MG Tab.Chew PO SCH (09:53)
[2018-07-28] MEDS: Ferrous Sulfate 325 MG Tab PO SCH ×3 (09:54→17:00)
[2018-07-28] MEDS: Magnesium Oxide 400 MG Tab PO SCH (09:54)
[2018-07-28] MEDS: Fluconazole 200 MG Tab PO SCH (09:54)
[2018-07-28] MEDS: amLODIPine 5 MG Tab PO SCH (09:54)
[2018-07-28] MEDS: Albuterol/Ipratropium 3.0-0.5 MG/3 ML Neb Soln NEB SCH ×4 (09:54→19:27)
[2018-07-28] MEDS: Lactobacillus Rhamnosus GG (Probiotic) Cap PO SCH ×2 (09:54→17:00)
[2018-07-28] MEDS: Pantoprazole 40 MG Tab.CR PO SCH ×2 (09:55→17:02)
[2018-07-28] MEDS: Nystatin Topical Powder 15 GM Bottle TOP SCH ×3 (09:55→17:02)
[2018-07-28] MEDS: Finasteride 5 MG Tab PO SCH (09:55)
[2018-07-28] MEDS: Enoxaparin 30 MG/0.3 ML Syringe SUBCUT SCH (17:01)
[2018-07-28] MEDS: Promethazine 25 MG Tab PO PRN (19:48)
[2018-07-29] MEDS: Carvedilol 25 MG Tab PO SCH ×2 (08:51→17:00)
[2018-07-29] MEDS: hydrALAZINE 50 MG Tab PO SCH ×3 (08:52→17:01)
[2018-07-29] MEDS: Aspirin 81 MG Tab.Chew PO SCH (08:52)
[2018-07-29] MEDS: Bumetanide 1 MG Tab PO SCH ×2 (08:53→16:12)
[2018-07-29] MEDS: Ciprofloxacin 500 MG Tab PO SCH ×2 (08:53→19:21)
[2018-07-29] MEDS: Clindamycin HCl 150 MG Cap PO SCH ×3 (08:54→17:02)
[2018-07-29] MEDS: Losartan 50 MG Tab PO SCH (08:55)
[2018-07-29] MEDS: Lactobacillus Rhamnosus GG (Probiotic) Cap PO SCH ×2 (08:55→17:02)
[2018-07-29] MEDS: Fluconazole 200 MG Tab PO SCH (08:56)
[2018-07-29] MEDS: Magnesium Oxide 400 MG Tab PO SCH (08:57)
[2018-07-29] MEDS: Ferrous Sulfate 325 MG Tab PO SCH ×3 (08:57→17:02)
[2018-07-29] MEDS: Finasteride 5 MG Tab PO SCH (08:58)
[2018-07-29] MEDS: amLODIPine 5 MG Tab PO SCH (08:58)
[2018-07-29] MEDS: Pantoprazole 40 MG Tab.CR PO SCH ×2 (08:59→17:04)
[2018-07-29] MEDS: Albuterol/Ipratropium 3.0-0.5 MG/3 ML Neb Soln NEB SCH ×4 (09:00→19:21)
[2018-07-29] MEDS: Nystatin Topical Powder 15 GM Bottle TOP SCH ×3 (09:00→17:03)
[2018-07-29] MEDS: Enoxaparin 30 MG/0.3 ML Syringe SUBCUT SCH (17:03)
[2018-07-30] MEDS: Aspirin 81 MG Tab.Chew PO SCH (07:38)
[2018-07-30] MEDS: Ciprofloxacin 500 MG Tab PO SCH ×2 (07:39→19:41)
[2018-07-30] MEDS: Clindamycin HCl 150 MG Cap PO SCH ×3 (07:40→17:41)
[2018-07-30] MEDS: Lactobacillus Rhamnosus GG (Probiotic) Cap PO SCH ×2 (07:41→17:42)
[2018-07-30] MEDS: Nystatin Topical Powder 15 GM Bottle TOP SCH ×3 (07:42→17:43)
[2018-07-30] MEDS: Albuterol/Ipratropium 3.0-0.5 MG/3 ML Neb Soln NEB SCH ×4 (07:42→19:40)
[2018-07-30] MEDS: Fluconazole 200 MG Tab PO SCH (07:42)
[2018-07-30] MEDS: Magnesium Oxide 400 MG Tab PO SCH (07:43)
[2018-07-30] MEDS: Ferrous Sulfate 325 MG Tab PO SCH ×3 (07:44→17:42)
[2018-07-30] MEDS: Pantoprazole 40 MG Tab.CR PO SCH ×2 (07:45→17:43)
[2018-07-30] MEDS: Finasteride 5 MG Tab PO SCH (07:45)
[2018-07-30] MEDS: hydrALAZINE 50 MG Tab PO SCH ×3 (12:20→17:39)
[2018-07-30] MEDS: Bumetanide 1 MG Tab PO SCH ×2 (12:20→16:13)
[2018-07-30] MEDS: Carvedilol 25 MG Tab PO SCH ×2 (12:20→17:39)
[2018-07-30] MEDS: Losartan 50 MG Tab PO SCH (12:20)
[2018-07-30] MEDS: amLODIPine 5 MG Tab PO SCH (12:21)
[2018-07-30] MEDS: Enoxaparin 30 MG/0.3 ML Syringe SUBCUT SCH (17:43)
[2018-07-31] MEDS: Loperamide 2 MG Tab PO PRN ×2 (03:11→19:55)
[2018-07-31] MEDS: hydrALAZINE 50 MG Tab PO SCH ×2 (08:19→11:22)
[2018-07-31] MEDS: Carvedilol 25 MG Tab PO SCH ×2 (08:19→17:11)
[2018-07-31] MEDS: Aspirin 81 MG Tab.Chew PO SCH (08:20)
[2018-07-31] MEDS: Bumetanide 1 MG Tab PO SCH ×2 (08:20→15:59)
[2018-07-31] MEDS: Ciprofloxacin 500 MG Tab PO SCH (08:20)
[2018-07-31] MEDS: Clindamycin HCl 150 MG Cap PO SCH ×4 (08:21→17:12)
[2018-07-31] MEDS: Losartan 50 MG Tab PO SCH (08:22)
[2018-07-31] MEDS: Lactobacillus Rhamnosus GG (Probiotic) Cap PO SCH ×2 (08:23→17:12)
[2018-07-31] MEDS: Fluconazole 200 MG Tab PO SCH (08:24)
[2018-07-31] MEDS: Ferrous Sulfate 325 MG Tab PO SCH ×3 (08:25→17:12)
[2018-07-31] MEDS: Albuterol/Ipratropium 3.0-0.5 MG/3 ML Neb Soln NEB SCH ×4 (08:25→19:27)
[2018-07-31] MEDS: Magnesium Oxide 400 MG Tab PO SCH (08:25)
[2018-07-31] MEDS: amLODIPine 5 MG Tab PO SCH (08:26)
[2018-07-31] MEDS: Finasteride 5 MG Tab PO SCH (08:26)
[2018-07-31] MEDS: Nystatin Topical Powder 15 GM Bottle TOP SCH ×2 (08:26→11:27)
[2018-07-31] MEDS: Pantoprazole 40 MG Tab.CR PO SCH ×2 (08:27→19:29)
[2018-07-31] MEDS: CLINDAMYCIN 300 MG PO SCH ×2 (11:50→17:14)
[2018-07-31] MEDS: HYDRALAZINE 100 MG PO SCH ×2 (11:52→17:14)
[2018-07-31] MEDS: Enoxaparin 30 MG/0.3 ML Syringe SUBCUT SCH (17:13)
[2018-07-31] MEDS: Betamethasone Dipropionate/Clotrimazole 0.05-1% Crm 15 GM Tube TOP SCH (19:27)
[2018-07-31] MEDS: CIPROFLOXACIN 250 MG PO SCH (19:29)
[2018-08-01] MEDS: Aspirin 81 MG Tab.Chew PO SCH (08:07)
[2018-08-01] MEDS: Bumetanide 1 MG Tab PO SCH ×2 (08:07→15:46)
[2018-08-01] MEDS: Carvedilol 25 MG Tab PO SCH ×2 (08:07→17:00)
[2018-08-01] MEDS: Fluconazole 200 MG Tab PO SCH (08:08)
[2018-08-01] MEDS: Lactobacillus Rhamnosus GG (Probiotic) Cap PO SCH ×2 (08:08→17:00)
[2018-08-01] MEDS: Clindamycin HCl 150 MG Cap PO SCH ×3 (08:08→17:00)
[2018-08-01] MEDS: Betamethasone Dipropionate/Clotrimazole 0.05-1% Crm 15 GM Tube TOP SCH ×2 (08:09→20:09)
[2018-08-01] MEDS: Albuterol/Ipratropium 3.0-0.5 MG/3 ML Neb Soln NEB SCH ×4 (08:09→20:08)
[2018-08-01] MEDS: Ferrous Sulfate 325 MG Tab PO SCH ×3 (08:09→17:01)
[2018-08-01] MEDS: Magnesium Oxide 400 MG Tab PO SCH (08:10)
[2018-08-01] MEDS: CLINDAMYCIN 300 MG PO SCH ×3 (08:10→17:03)
[2018-08-01] MEDS: HYDRALAZINE 100 MG PO SCH ×3 (08:10→17:04)
[2018-08-01] MEDS: CIPROFLOXACIN 250 MG PO SCH ×2 (08:10→20:09)
[2018-08-01] MEDS: amLODIPine 5 MG Tab PO SCH (08:11)
[2018-08-01] MEDS: LOSARTAN 25 MG PO SCH (08:11)
[2018-08-01] MEDS: Finasteride 5 MG Tab PO SCH (08:11)
[2018-08-01] MEDS: Enoxaparin 30 MG/0.3 ML Syringe SUBCUT SCH (17:02)
[2018-08-01] MEDS: Pantoprazole 40 MG Tab.CR PO SCH (20:10)
[2018-08-01] MEDS: Loperamide 2 MG Tab PO PRN (20:14)
[2018-08-02] MEDS: Aspirin 81 MG Tab.Chew PO SCH (07:30)
[2018-08-02] MEDS: Carvedilol 25 MG Tab PO SCH ×2 (07:30→17:16)
[2018-08-02] MEDS: Bumetanide 1 MG Tab PO SCH ×2 (07:31→16:15)
[2018-08-02] MEDS: Clindamycin HCl 150 MG Cap PO SCH ×3 (07:32→17:17)
[2018-08-02] MEDS: Lactobacillus Rhamnosus GG (Probiotic) Cap PO SCH ×2 (07:32→17:17)
[2018-08-02] MEDS: Fluconazole 200 MG Tab PO SCH (07:32)
[2018-08-02] MEDS: Albuterol/Ipratropium 3.0-0.5 MG/3 ML Neb Soln NEB SCH ×4 (07:34→19:33)
[2018-08-02] MEDS: Betamethasone Dipropionate/Clotrimazole 0.05-1% Crm 15 GM Tube TOP SCH ×2 (07:34→19:34)
[2018-08-02] MEDS: Ferrous Sulfate 325 MG Tab PO SCH ×3 (07:34→17:18)
[2018-08-02] MEDS: CLINDAMYCIN 300 MG PO SCH ×3 (07:35→17:19)
[2018-08-02] MEDS: Magnesium Oxide 400 MG Tab PO SCH (07:35)
[2018-08-02] MEDS: CIPROFLOXACIN 250 MG PO SCH ×2 (07:35→19:35)
[2018-08-02] MEDS: HYDRALAZINE 100 MG PO SCH ×3 (07:36→17:19)
[2018-08-02] MEDS: LOSARTAN 25 MG PO SCH (07:36)
[2018-08-02] MEDS: amLODIPine 5 MG Tab PO SCH (07:36)
[2018-08-02] MEDS: Enoxaparin 30 MG/0.3 ML Syringe SUBCUT SCH (17:18)
[2018-08-02] MEDS: Pantoprazole 40 MG Tab.CR PO SCH (19:36)
[2018-08-02] MEDS: Finasteride 5 MG Tab PO SCH (19:36)
[2018-08-03] MEDS: Carvedilol 25 MG Tab PO SCH ×2 (08:11→17:56)
[2018-08-03] MEDS: Aspirin 81 MG Tab.Chew PO SCH (08:12)
[2018-08-03] MEDS: Bumetanide 1 MG Tab PO SCH ×2 (08:12→16:20)
[2018-08-03] MEDS: Clindamycin HCl 150 MG Cap PO SCH ×3 (08:12→17:56)
[2018-08-03] MEDS: Fluconazole 200 MG Tab PO SCH (08:13)
[2018-08-03] MEDS: Lactobacillus Rhamnosus GG (Probiotic) Cap PO SCH ×2 (08:13→17:56)
[2018-08-03] MEDS: Ferrous Sulfate 325 MG Tab PO SCH ×3 (08:14→17:57)
[2018-08-03] MEDS: Albuterol/Ipratropium 3.0-0.5 MG/3 ML Neb Soln NEB SCH ×4 (08:14→19:19)
[2018-08-03] MEDS: CIPROFLOXACIN 250 MG PO SCH ×2 (08:15→19:20)
[2018-08-03] MEDS: Betamethasone Dipropionate/Clotrimazole 0.05-1% Crm 15 GM Tube TOP SCH ×2 (08:15→19:20)
[2018-08-03] MEDS: Magnesium Oxide 400 MG Tab PO SCH (08:15)
[2018-08-03] MEDS: HYDRALAZINE 100 MG PO SCH ×3 (08:16→17:58)
[2018-08-03] MEDS: CLINDAMYCIN 300 MG PO SCH ×3 (08:16→17:58)
[2018-08-03] MEDS: LOSARTAN 25 MG PO SCH (08:16)
[2018-08-03] MEDS: amLODIPine 5 MG Tab PO SCH (08:16)
[2018-08-03] MEDS: Enoxaparin 30 MG/0.3 ML Syringe SUBCUT SCH (17:57)
[2018-08-03] MEDS: Pantoprazole 40 MG Tab.CR PO SCH (19:20)
[2018-08-03] MEDS: Finasteride 5 MG Tab PO SCH (19:20)
[2018-08-04] MEDS: Aspirin 81 MG Tab.Chew PO SCH (08:11)
[2018-08-04] MEDS: Carvedilol 25 MG Tab PO SCH ×2 (08:11→17:27)
[2018-08-04] MEDS: Bumetanide 1 MG Tab PO SCH ×2 (08:12→16:09)
[2018-08-04] MEDS: Fluconazole 200 MG Tab PO SCH (08:12)
[2018-08-04] MEDS: Clindamycin HCl 150 MG Cap PO SCH ×3 (08:12→17:27)
[2018-08-04] MEDS: Lactobacillus Rhamnosus GG (Probiotic) Cap PO SCH ×2 (08:12→17:27)
[2018-08-04] MEDS: Albuterol/Ipratropium 3.0-0.5 MG/3 ML Neb Soln NEB SCH ×4 (08:13→19:02)
[2018-08-04] MEDS: Ferrous Sulfate 325 MG Tab PO SCH ×3 (08:13→17:27)
[2018-08-04] MEDS: Betamethasone Dipropionate/Clotrimazole 0.05-1% Crm 15 GM Tube TOP SCH ×2 (08:13→19:02)
[2018-08-04] MEDS: CIPROFLOXACIN 250 MG PO SCH ×2 (08:14→19:03)
[2018-08-04] MEDS: CLINDAMYCIN 300 MG PO SCH ×3 (08:14→17:28)
[2018-08-04] MEDS: Magnesium Oxide 400 MG Tab PO SCH (08:14)
[2018-08-04] MEDS: amLODIPine 5 MG Tab PO SCH (08:15)
[2018-08-04] MEDS: HYDRALAZINE 100 MG PO SCH ×3 (08:15→17:28)
[2018-08-04] MEDS: LOSARTAN 25 MG PO SCH (08:15)
[2018-08-04] MEDS: Enoxaparin 30 MG/0.3 ML Syringe SUBCUT SCH (17:29)
[2018-08-04] MEDS: Pantoprazole 40 MG Tab.CR PO SCH (19:03)
[2018-08-04] MEDS: Finasteride 5 MG Tab PO SCH (19:03)
[2018-08-05] MEDS: Carvedilol 25 MG Tab PO SCH ×2 (07:41→17:19)
[2018-08-05] MEDS: Aspirin 81 MG Tab.Chew PO SCH (07:43)
[2018-08-05] MEDS: Fluconazole 200 MG Tab PO SCH (07:44)
[2018-08-05] MEDS: CIPROFLOXACIN 250 MG PO SCH ×2 (07:44→19:32)
[2018-08-05] MEDS: Bumetanide 1 MG Tab PO SCH ×2 (07:44→15:34)
[2018-08-05] MEDS: Clindamycin HCl 150 MG Cap PO SCH ×3 (07:44→17:20)
[2018-08-05] MEDS: LOSARTAN 25 MG PO SCH (07:45)
[2018-08-05] MEDS: amLODIPine 5 MG Tab PO SCH (07:45)
[2018-08-05] MEDS: CLINDAMYCIN 300 MG PO SCH ×3 (07:45→17:20)
[2018-08-05] MEDS: HYDRALAZINE 100 MG PO SCH ×3 (07:45→17:20)
[2018-08-05] MEDS: Magnesium Oxide 400 MG Tab PO SCH (07:46)
[2018-08-05] MEDS: Ferrous Sulfate 325 MG Tab PO SCH ×3 (07:46→17:22)
[2018-08-05] MEDS: Albuterol/Ipratropium 3.0-0.5 MG/3 ML Neb Soln NEB SCH ×4 (07:47→19:30)
[2018-08-05] MEDS: Lactobacillus Rhamnosus GG (Probiotic) Cap PO SCH ×2 (07:47→17:21)
[2018-08-05] MEDS: Betamethasone Dipropionate/Clotrimazole 0.05-1% Crm 15 GM Tube TOP SCH ×2 (07:48→19:31)
[2018-08-05] MEDS: Enoxaparin 30 MG/0.3 ML Syringe SUBCUT SCH (17:21)
[2018-08-05] MEDS: Pantoprazole 40 MG Tab.CR PO SCH (19:32)
[2018-08-05] MEDS: Finasteride 5 MG Tab PO SCH (19:32)
[2018-08-06] MEDS: Carvedilol 25 MG Tab PO SCH ×2 (08:00→17:17)
[2018-08-06] MEDS: Lactobacillus Rhamnosus GG (Probiotic) Cap PO SCH ×2 (08:01→17:18)
[2018-08-06] MEDS: Aspirin 81 MG Tab.Chew PO SCH (08:01)
[2018-08-06] MEDS: Fluconazole 200 MG Tab PO SCH (08:01)
[2018-08-06] MEDS: Bumetanide 1 MG Tab PO SCH ×2 (08:01→15:51)
[2018-08-06] MEDS: Clindamycin HCl 150 MG Cap PO SCH ×3 (08:01→17:18)
[2018-08-06] MEDS: Ferrous Sulfate 325 MG Tab PO SCH ×3 (08:02→17:18)
[2018-08-06] MEDS: Magnesium Oxide 400 MG Tab PO SCH (08:02)
[2018-08-06] MEDS: Betamethasone Dipropionate/Clotrimazole 0.05-1% Crm 15 GM Tube TOP SCH ×2 (08:02→19:46)
[2018-08-06] MEDS: Albuterol/Ipratropium 3.0-0.5 MG/3 ML Neb Soln NEB SCH ×4 (08:02→19:45)
[2018-08-06] MEDS: LOSARTAN 25 MG PO SCH (08:03)
[2018-08-06] MEDS: amLODIPine 5 MG Tab PO SCH (08:03)
[2018-08-06] MEDS: CIPROFLOXACIN 250 MG PO SCH ×2 (08:03→19:46)
[2018-08-06] MEDS: HYDRALAZINE 100 MG PO SCH ×3 (08:03→17:21)
[2018-08-06] MEDS: CLINDAMYCIN 300 MG PO SCH ×3 (08:03→17:21)
[2018-08-06] MEDS: Enoxaparin 30 MG/0.3 ML Syringe SUBCUT SCH (17:18)
[2018-08-06] MEDS: Finasteride 5 MG Tab PO SCH (19:46)
[2018-08-06] MEDS: Pantoprazole 40 MG Tab.CR PO SCH (19:46)
[2018-08-07] MEDS: Carvedilol 25 MG Tab PO SCH ×2 (07:50→17:09)
[2018-08-07] MEDS: Bumetanide 1 MG Tab PO SCH ×2 (07:51→16:16)
[2018-08-07] MEDS: Fluconazole 200 MG Tab PO SCH (07:51)
[2018-08-07] MEDS: Clindamycin HCl 150 MG Cap PO SCH ×3 (07:51→17:10)
[2018-08-07] MEDS: CLINDAMYCIN 300 MG PO SCH ×3 (07:51→17:10)
[2018-08-07] MEDS: CIPROFLOXACIN 250 MG PO SCH ×2 (07:51→19:30)
[2018-08-07] MEDS: Albuterol/Ipratropium 3.0-0.5 MG/3 ML Neb Soln NEB SCH ×4 (07:52→19:29)
[2018-08-07] MEDS: HYDRALAZINE 100 MG PO SCH ×3 (07:52→17:10)
[2018-08-07] MEDS: amLODIPine 5 MG Tab PO SCH (07:52)
[2018-08-07] MEDS: LOSARTAN 25 MG PO SCH (07:52)
[2018-08-07] MEDS: Lactobacillus Rhamnosus GG (Probiotic) Cap PO SCH ×2 (07:53→17:10)
[2018-08-07] MEDS: Betamethasone Dipropionate/Clotrimazole 0.05-1% Crm 15 GM Tube TOP SCH ×2 (07:53→19:29)
[2018-08-07] MEDS: Ferrous Sulfate 325 MG Tab PO SCH ×3 (07:53→17:11)
[2018-08-07] MEDS: Magnesium Oxide 400 MG Tab PO SCH (07:54)
[2018-08-07] MEDS: Aspirin 81 MG Tab.Chew PO SCH (07:55)
[2018-08-07] MEDS: Enoxaparin 30 MG/0.3 ML Syringe SUBCUT SCH (17:12)
[2018-08-07] MEDS: Finasteride 5 MG Tab PO SCH (19:30)
[2018-08-07] MEDS: Pantoprazole 40 MG Tab.CR PO SCH (19:30)
[2018-08-08] MEDS: HYDRALAZINE 100 MG PO SCH ×3 (07:31→17:12)
[2018-08-08] MEDS: LOSARTAN 25 MG PO SCH (07:31)
[2018-08-08] MEDS: CIPROFLOXACIN 250 MG PO SCH ×2 (07:32→19:36)
[2018-08-08] MEDS: Carvedilol 25 MG Tab PO SCH ×2 (07:32→17:11)
[2018-08-08] MEDS: Bumetanide 1 MG Tab PO SCH ×2 (07:32→16:17)
[2018-08-08] MEDS: amLODIPine 5 MG Tab PO SCH (07:32)
[2018-08-08] MEDS: CLINDAMYCIN 300 MG PO SCH ×3 (07:32→17:12)
[2018-08-08] MEDS: Clindamycin HCl 150 MG Cap PO SCH ×3 (07:33→17:12)
[2018-08-08] MEDS: Fluconazole 200 MG Tab PO SCH (07:33)
[2018-08-08] MEDS: Lactobacillus Rhamnosus GG (Probiotic) Cap PO SCH ×2 (07:34→17:13)
[2018-08-08] MEDS: Albuterol/Ipratropium 3.0-0.5 MG/3 ML Neb Soln NEB SCH ×4 (07:34→19:34)
[2018-08-08] MEDS: Ferrous Sulfate 325 MG Tab PO SCH ×3 (07:35→17:13)
[2018-08-08] MEDS: Aspirin 81 MG Tab.Chew PO SCH (07:35)
[2018-08-08] MEDS: Betamethasone Dipropionate/Clotrimazole 0.05-1% Crm 15 GM Tube TOP SCH ×2 (07:35→19:34)
[2018-08-08] MEDS: Magnesium Oxide 400 MG Tab PO SCH (07:36)
[2018-08-08] MEDS: Enoxaparin 30 MG/0.3 ML Syringe SUBCUT SCH (17:12)
[2018-08-08] MEDS: Pantoprazole 40 MG Tab.CR PO SCH (19:36)
[2018-08-08] MEDS: Finasteride 5 MG Tab PO SCH (19:36)
[2018-08-09] MEDS: LOSARTAN 25 MG PO SCH (07:35)
[2018-08-09] MEDS: Bumetanide 1 MG Tab PO SCH ×2 (07:36→15:42)
[2018-08-09] MEDS: Carvedilol 25 MG Tab PO SCH ×2 (07:36→17:17)
[2018-08-09] MEDS: Aspirin 81 MG Tab.Chew PO SCH (07:36)
[2018-08-09] MEDS: Albuterol/Ipratropium 3.0-0.5 MG/3 ML Neb Soln NEB SCH ×4 (07:37→19:36)
[2018-08-09] MEDS: Lactobacillus Rhamnosus GG (Probiotic) Cap PO SCH ×2 (07:37→17:17)
[2018-08-09] MEDS: Fluconazole 200 MG Tab PO SCH (07:37)
[2018-08-09] MEDS: Clindamycin HCl 150 MG Cap PO SCH ×3 (07:37→17:17)
[2018-08-09] MEDS: Ferrous Sulfate 325 MG Tab PO SCH ×3 (07:38→17:18)
[2018-08-09] MEDS: Betamethasone Dipropionate/Clotrimazole 0.05-1% Crm 15 GM Tube TOP SCH ×2 (07:38→19:36)
[2018-08-09] MEDS: Magnesium Oxide 400 MG Tab PO SCH (07:39)
[2018-08-09] MEDS: CIPROFLOXACIN 250 MG PO SCH ×2 (07:39→19:38)
[2018-08-09] MEDS: amLODIPine 5 MG Tab PO SCH (07:40)
[2018-08-09] MEDS: HYDRALAZINE 100 MG PO SCH ×3 (07:40→17:19)
[2018-08-09] MEDS: CLINDAMYCIN 300 MG PO SCH ×3 (07:40→17:19)
[2018-08-09] MEDS: Enoxaparin 30 MG/0.3 ML Syringe SUBCUT SCH (17:18)
[2018-08-09] MEDS: Finasteride 5 MG Tab PO SCH (19:38)
[2018-08-09] MEDS: Pantoprazole 40 MG Tab.CR PO SCH (19:38)
[2018-08-10] MEDS: Carvedilol 25 MG Tab PO SCH ×2 (07:52→17:06)
[2018-08-10] MEDS: Bumetanide 1 MG Tab PO SCH ×2 (07:53→15:26)
[2018-08-10] MEDS: Clindamycin HCl 150 MG Cap PO SCH ×3 (07:53→17:07)
[2018-08-10] MEDS: Aspirin 81 MG Tab.Chew PO SCH (07:53)
[2018-08-10] MEDS: Betamethasone Dipropionate/Clotrimazole 0.05-1% Crm 15 GM Tube TOP SCH ×2 (07:54→19:06)
[2018-08-10] MEDS: Lactobacillus Rhamnosus GG (Probiotic) Cap PO SCH ×2 (07:54→17:07)
[2018-08-10] MEDS: Ferrous Sulfate 325 MG Tab PO SCH ×3 (07:54→17:07)
[2018-08-10] MEDS: Fluconazole 200 MG Tab PO SCH (07:54)
[2018-08-10] MEDS: Albuterol/Ipratropium 3.0-0.5 MG/3 ML Neb Soln NEB SCH ×4 (07:54→19:05)
[2018-08-10] MEDS: CIPROFLOXACIN 250 MG PO SCH ×2 (07:55→19:06)
[2018-08-10] MEDS: CLINDAMYCIN 300 MG PO SCH ×3 (07:55→17:08)
[2018-08-10] MEDS: amLODIPine 5 MG Tab PO SCH (07:55)
[2018-08-10] MEDS: HYDRALAZINE 100 MG PO SCH ×3 (07:55→17:08)
[2018-08-10] MEDS: Magnesium Oxide 400 MG Tab PO SCH (07:55)
[2018-08-10] MEDS: LOSARTAN 25 MG PO SCH (07:56)
[2018-08-10] MEDS: Enoxaparin 30 MG/0.3 ML Syringe SUBCUT SCH (17:07)
[2018-08-10] MEDS: Finasteride 5 MG Tab PO SCH (19:06)
[2018-08-10] MEDS: Pantoprazole 40 MG Tab.CR PO SCH (19:06)
[2018-08-11] MEDS: Albuterol/Ipratropium 3.0-0.5 MG/3 ML Neb Soln NEB SCH ×4 (07:52→19:01)
[2018-08-11] MEDS: Betamethasone Dipropionate/Clotrimazole 0.05-1% Crm 15 GM Tube TOP SCH ×2 (07:52→19:00)
[2018-08-11] MEDS: Carvedilol 25 MG Tab PO SCH ×2 (07:59→17:07)
[2018-08-11] MEDS: Aspirin 81 MG Tab.Chew PO SCH (07:59)
[2018-08-11] MEDS: Fluconazole 200 MG Tab PO SCH (08:00)
[2018-08-11] MEDS: Bumetanide 1 MG Tab PO SCH ×2 (08:00→15:40)
[2018-08-11] MEDS: Clindamycin HCl 150 MG Cap PO SCH ×3 (08:00→17:08)
[2018-08-11] MEDS: Lactobacillus Rhamnosus GG (Probiotic) Cap PO SCH ×2 (08:00→17:08)
[2018-08-11] MEDS: CLINDAMYCIN 300 MG PO SCH ×3 (08:01→17:09)
[2018-08-11] MEDS: HYDRALAZINE 100 MG PO SCH ×3 (08:01→17:09)
[2018-08-11] MEDS: CIPROFLOXACIN 250 MG PO SCH ×2 (08:01→19:00)
[2018-08-11] MEDS: Magnesium Oxide 400 MG Tab PO SCH (08:01)
[2018-08-11] MEDS: Ferrous Sulfate 325 MG Tab PO SCH ×3 (08:01→17:08)
[2018-08-11] MEDS: LOSARTAN 25 MG PO SCH (08:01)
[2018-08-11] MEDS: amLODIPine 5 MG Tab PO SCH (08:02)
[2018-08-11] MEDS: Enoxaparin 30 MG/0.3 ML Syringe SUBCUT SCH (17:09)
[2018-08-11] MEDS: Pantoprazole 40 MG Tab.CR PO SCH (19:00)
[2018-08-11] MEDS: Finasteride 5 MG Tab PO SCH (19:00)
[2018-08-12] MEDS: Aspirin 81 MG Tab.Chew PO SCH (07:41)
[2018-08-12] MEDS: Bumetanide 1 MG Tab PO SCH ×2 (07:41→16:19)
[2018-08-12] MEDS: HYDRALAZINE 100 MG PO SCH ×3 (07:42→17:20)
[2018-08-12] MEDS: Fluconazole 200 MG Tab PO SCH (07:42)
[2018-08-12] MEDS: CIPROFLOXACIN 250 MG PO SCH ×2 (07:42→19:00)
[2018-08-12] MEDS: Clindamycin HCl 150 MG Cap PO SCH ×3 (07:42→17:20)
[2018-08-12] MEDS: CLINDAMYCIN 300 MG PO SCH ×3 (07:42→17:20)
[2018-08-12] MEDS: Ferrous Sulfate 325 MG Tab PO SCH ×3 (07:43→17:21)
[2018-08-12] MEDS: Lactobacillus Rhamnosus GG (Probiotic) Cap PO SCH ×2 (07:43→17:21)
[2018-08-12] MEDS: Albuterol/Ipratropium 3.0-0.5 MG/3 ML Neb Soln NEB SCH ×4 (07:43→18:59)
[2018-08-12] MEDS: Magnesium Oxide 400 MG Tab PO SCH (07:44)
[2018-08-12] MEDS: Betamethasone Dipropionate/Clotrimazole 0.05-1% Crm 15 GM Tube TOP SCH ×2 (07:44→19:00)
[2018-08-12] MEDS: Carvedilol 25 MG Tab PO SCH ×2 (07:47→17:19)
[2018-08-12] MEDS: LOSARTAN 25 MG PO SCH (07:47)
[2018-08-12] MEDS: amLODIPine 5 MG Tab PO SCH (07:47)
[2018-08-12] MEDS: Enoxaparin 30 MG/0.3 ML Syringe SUBCUT SCH (17:21)
[2018-08-12] MEDS: Finasteride 5 MG Tab PO SCH (19:00)
[2018-08-12] MEDS: Pantoprazole 40 MG Tab.CR PO SCH (19:01)
[2018-08-13] MEDS: Carvedilol 25 MG Tab PO SCH ×2 (07:36→17:14)
[2018-08-13] MEDS: Aspirin 81 MG Tab.Chew PO SCH (07:37)
[2018-08-13] MEDS: Bumetanide 1 MG Tab PO SCH ×2 (07:37→15:18)
[2018-08-13] MEDS: Lactobacillus Rhamnosus GG (Probiotic) Cap PO SCH ×2 (07:37→17:14)
[2018-08-13] MEDS: Clindamycin HCl 150 MG Cap PO SCH ×3 (07:37→17:14)
[2018-08-13] MEDS: Fluconazole 200 MG Tab PO SCH (07:38)
[2018-08-13] MEDS: Albuterol/Ipratropium 3.0-0.5 MG/3 ML Neb Soln NEB SCH ×4 (07:38→18:59)
[2018-08-13] MEDS: Betamethasone Dipropionate/Clotrimazole 0.05-1% Crm 15 GM Tube TOP SCH ×2 (07:39→18:59)
[2018-08-13] MEDS: Ferrous Sulfate 325 MG Tab PO SCH ×3 (07:39→17:15)
[2018-08-13] MEDS: Magnesium Oxide 400 MG Tab PO SCH (07:39)
[2018-08-13] MEDS: LOSARTAN 25 MG PO SCH (07:40)
[2018-08-13] MEDS: HYDRALAZINE 100 MG PO SCH ×3 (07:40→17:17)
[2018-08-13] MEDS: amLODIPine 5 MG Tab PO SCH (07:40)
[2018-08-13] MEDS: CLINDAMYCIN 300 MG PO SCH ×3 (07:40→17:17)
[2018-08-13] MEDS: CIPROFLOXACIN 250 MG PO SCH ×2 (07:40→19:02)
[2018-08-13] MEDS: Enoxaparin 30 MG/0.3 ML Syringe SUBCUT SCH (17:15)
[2018-08-13] MEDS: Pantoprazole 40 MG Tab.CR PO SCH (19:02)
[2018-08-13] MEDS: Finasteride 5 MG Tab PO SCH (19:02)
[2018-08-14] MEDS: Clindamycin HCl 150 MG Cap PO SCH ×3 (07:20→17:20)
[2018-08-14] MEDS: Carvedilol 25 MG Tab PO SCH ×2 (07:20→17:19)
[2018-08-14] MEDS: Bumetanide 1 MG Tab PO SCH ×2 (07:20→16:01)
[2018-08-14] MEDS: Fluconazole 200 MG Tab PO SCH (07:21)
[2018-08-14] MEDS: CIPROFLOXACIN 250 MG PO SCH ×2 (07:21→19:30)
[2018-08-14] MEDS: HYDRALAZINE 100 MG PO SCH ×3 (07:22→17:20)
[2018-08-14] MEDS: CLINDAMYCIN 300 MG PO SCH ×3 (07:22→17:20)
[2018-08-14] MEDS: LOSARTAN 25 MG PO SCH (07:22)
[2018-08-14] MEDS: amLODIPine 5 MG Tab PO SCH (07:22)
[2018-08-14] MEDS: Aspirin 81 MG Tab.Chew PO SCH (07:23)
[2018-08-14] MEDS: Lactobacillus Rhamnosus GG (Probiotic) Cap PO SCH ×2 (07:23→17:33)
[2018-08-14] MEDS: Ferrous Sulfate 325 MG Tab PO SCH ×3 (07:24→17:33)
[2018-08-14] MEDS: Albuterol/Ipratropium 3.0-0.5 MG/3 ML Neb Soln NEB SCH ×4 (07:24→19:29)
[2018-08-14] MEDS: Betamethasone Dipropionate/Clotrimazole 0.05-1% Crm 15 GM Tube TOP SCH (07:25)
[2018-08-14] MEDS: Magnesium Oxide 400 MG Tab PO SCH (07:26)
[2018-08-14] MEDS: Enoxaparin 30 MG/0.3 ML Syringe SUBCUT SCH (17:19)
[2018-08-14] MEDS: Finasteride 5 MG Tab PO SCH (19:30)
[2018-08-14] MEDS: Pantoprazole 40 MG Tab.CR PO SCH (19:30)
[2018-08-15] MEDS: CLINDAMYCIN 300 MG PO SCH ×3 (08:27→17:28)
[2018-08-15] MEDS: HYDRALAZINE 100 MG PO SCH ×3 (08:27→17:28)
[2018-08-15] MEDS: amLODIPine 5 MG Tab PO SCH (08:27)
[2018-08-15] MEDS: LOSARTAN 25 MG PO SCH (08:27)
[2018-08-15] MEDS: Carvedilol 25 MG Tab PO SCH ×2 (08:28→17:28)
[2018-08-15] MEDS: Fluconazole 200 MG Tab PO SCH (08:28)
[2018-08-15] MEDS: Bumetanide 1 MG Tab PO SCH ×2 (08:28→16:19)
[2018-08-15] MEDS: CIPROFLOXACIN 250 MG PO SCH ×2 (08:28→19:53)
[2018-08-15] MEDS: Clindamycin HCl 150 MG Cap PO SCH ×3 (08:28→17:28)
[2018-08-15] MEDS: Lactobacillus Rhamnosus GG (Probiotic) Cap PO SCH ×2 (08:29→17:29)
[2018-08-15] MEDS: Aspirin 81 MG Tab.Chew PO SCH (08:29)
[2018-08-15] MEDS: Ferrous Sulfate 325 MG Tab PO SCH ×3 (08:30→17:29)
[2018-08-15] MEDS: Albuterol/Ipratropium 3.0-0.5 MG/3 ML Neb Soln NEB SCH ×4 (08:31→19:53)
[2018-08-15] MEDS: Magnesium Oxide 400 MG Tab PO SCH (08:31)
[2018-08-15] MEDS: Enoxaparin 30 MG/0.3 ML Syringe SUBCUT SCH (17:30)
[2018-08-15] MEDS: Finasteride 5 MG Tab PO SCH (19:53)
[2018-08-15] MEDS: Pantoprazole 40 MG Tab.CR PO SCH (19:54)
[2018-08-16] MEDS: HYDRALAZINE 100 MG PO SCH ×3 (08:07→18:22)
[2018-08-16] MEDS: LOSARTAN 25 MG PO SCH (08:07)
[2018-08-16] MEDS: amLODIPine 5 MG Tab PO SCH (08:07)
[2018-08-16] MEDS: Clindamycin HCl 150 MG Cap PO SCH ×3 (08:08→18:20)
[2018-08-16] MEDS: Bumetanide 1 MG Tab PO SCH ×2 (08:08→16:43)
[2018-08-16] MEDS: CLINDAMYCIN 300 MG PO SCH ×3 (08:08→18:20)
[2018-08-16] MEDS: CIPROFLOXACIN 250 MG PO SCH ×2 (08:08→20:40)
[2018-08-16] MEDS: Carvedilol 25 MG Tab PO SCH ×2 (08:08→18:19)
[2018-08-16] MEDS: Fluconazole 200 MG Tab PO SCH (08:08)
[2018-08-16] MEDS: Aspirin 81 MG Tab.Chew PO SCH (08:09)
[2018-08-16] MEDS: Albuterol/Ipratropium 3.0-0.5 MG/3 ML Neb Soln NEB SCH ×4 (08:10→20:38)
[2018-08-16] MEDS: Lactobacillus Rhamnosus GG (Probiotic) Cap PO SCH ×2 (08:10→18:20)
[2018-08-16] MEDS: Ferrous Sulfate 325 MG Tab PO SCH ×3 (08:11→18:20)
[2018-08-16] MEDS: Magnesium Oxide 400 MG Tab PO SCH (08:12)
[2018-08-16] MEDS: Enoxaparin 30 MG/0.3 ML Syringe SUBCUT SCH (18:22)
[2018-08-16] MEDS: Finasteride 5 MG Tab PO SCH (20:40)
[2018-08-16] MEDS: Pantoprazole 40 MG Tab.CR PO SCH (20:41)
[2018-08-17] MEDS: Carvedilol 25 MG Tab PO SCH ×2 (07:46→17:21)
[2018-08-17] MEDS: Bumetanide 1 MG Tab PO SCH ×2 (07:47→16:27)
[2018-08-17] MEDS: HYDRALAZINE 100 MG PO SCH ×3 (07:47→17:21)
[2018-08-17] MEDS: Clindamycin HCl 150 MG Cap PO SCH ×3 (07:47→17:21)
[2018-08-17] MEDS: Fluconazole 200 MG Tab PO SCH (07:47)
[2018-08-17] MEDS: CLINDAMYCIN 300 MG PO SCH ×3 (07:47→17:21)
[2018-08-17] MEDS: CIPROFLOXACIN 250 MG PO SCH ×2 (07:47→19:47)
[2018-08-17] MEDS: Lactobacillus Rhamnosus GG (Probiotic) Cap PO SCH ×2 (07:48→17:23)
[2018-08-17] MEDS: amLODIPine 5 MG Tab PO SCH (07:48)
[2018-08-17] MEDS: Albuterol/Ipratropium 3.0-0.5 MG/3 ML Neb Soln NEB SCH ×4 (07:48→19:46)
[2018-08-17] MEDS: Aspirin 81 MG Tab.Chew PO SCH (07:48)
[2018-08-17] MEDS: LOSARTAN 25 MG PO SCH (07:48)
[2018-08-17] MEDS: Magnesium Oxide 400 MG Tab PO SCH (07:49)
[2018-08-17] MEDS: Ferrous Sulfate 325 MG Tab PO SCH ×3 (07:49→17:23)
[2018-08-17] MEDS: Promethazine 25 MG Tab PO PRN (08:18)
[2018-08-17] MEDS: Enoxaparin 30 MG/0.3 ML Syringe SUBCUT SCH (17:22)
[2018-08-17] MEDS: Finasteride 5 MG Tab PO SCH (19:47)
[2018-08-17] MEDS: Pantoprazole 40 MG Tab.CR PO SCH (19:47)
[2018-08-18] MEDS: Carvedilol 25 MG Tab PO SCH ×2 (07:44→17:25)
[2018-08-18] MEDS: Bumetanide 1 MG Tab PO SCH ×2 (07:44→16:01)
[2018-08-18] MEDS: Lactobacillus Rhamnosus GG (Probiotic) Cap PO SCH ×2 (07:45→17:26)
[2018-08-18] MEDS: Fluconazole 200 MG Tab PO SCH (07:45)
[2018-08-18] MEDS: Clindamycin HCl 150 MG Cap PO SCH ×3 (07:45→17:25)
[2018-08-18] MEDS: Aspirin 81 MG Tab.Chew PO SCH (07:45)
[2018-08-18] MEDS: Albuterol/Ipratropium 3.0-0.5 MG/3 ML Neb Soln NEB SCH ×4 (07:46→19:55)
[2018-08-18] MEDS: Magnesium Oxide 400 MG Tab PO SCH (07:46)
[2018-08-18] MEDS: Ferrous Sulfate 325 MG Tab PO SCH ×3 (07:46→17:25)
[2018-08-18] MEDS: CIPROFLOXACIN 250 MG PO SCH ×2 (07:47→19:55)
[2018-08-18] MEDS: amLODIPine 5 MG Tab PO SCH (07:48)
[2018-08-18] MEDS: HYDRALAZINE 100 MG PO SCH ×3 (07:48→17:25)
[2018-08-18] MEDS: CLINDAMYCIN 300 MG PO SCH ×3 (07:48→17:24)
[2018-08-18] MEDS: LOSARTAN 25 MG PO SCH (07:48)
[2018-08-18] MEDS: Enoxaparin 30 MG/0.3 ML Syringe SUBCUT SCH (17:26)
[2018-08-18] MEDS: Finasteride 5 MG Tab PO SCH (19:55)
[2018-08-18] MEDS: Pantoprazole 40 MG Tab.CR PO SCH (19:56)
[2018-08-19 07:36] LABS: HEMOGLOBIN A1C 5.2 % (4.3-5.7)
[2018-08-19] MEDS: Carvedilol 25 MG Tab PO SCH ×2 (07:43→17:10)
[2018-08-19] MEDS: Bumetanide 1 MG Tab PO SCH ×2 (07:43→16:05)
[2018-08-19] MEDS: HYDRALAZINE 100 MG PO SCH ×3 (07:44→17:10)
[2018-08-19] MEDS: LOSARTAN 25 MG PO SCH (07:44)
[2018-08-19] MEDS: Clindamycin HCl 150 MG Cap PO SCH ×3 (07:44→17:10)
[2018-08-19] MEDS: CIPROFLOXACIN 250 MG PO SCH ×2 (07:44→19:28)
[2018-08-19] MEDS: CLINDAMYCIN 300 MG PO SCH ×3 (07:44→17:10)
[2018-08-19] MEDS: amLODIPine 5 MG Tab PO SCH (07:45)
[2018-08-19] MEDS: Aspirin 81 MG Tab.Chew PO SCH (07:45)
[2018-08-19] MEDS: Ferrous Sulfate 325 MG Tab PO SCH ×3 (07:46→17:12)
[2018-08-19] MEDS: Albuterol/Ipratropium 3.0-0.5 MG/3 ML Neb Soln NEB SCH ×4 (07:46→19:27)
[2018-08-19] MEDS: Lactobacillus Rhamnosus GG (Probiotic) Cap PO SCH ×2 (07:46→17:12)
[2018-08-19] MEDS: Magnesium Oxide 400 MG Tab PO SCH (07:47)
[2018-08-19] MEDS: Enoxaparin 30 MG/0.3 ML Syringe SUBCUT SCH (17:11)
[2018-08-19] MEDS: Pantoprazole 40 MG Tab.CR PO SCH (19:28)
[2018-08-19] MEDS: Finasteride 5 MG Tab PO SCH (19:28)
[2018-08-20] MEDS: Carvedilol 25 MG Tab PO SCH ×2 (08:07→17:14)
[2018-08-20] MEDS: Bumetanide 1 MG Tab PO SCH (08:07)
[2018-08-20] MEDS: Aspirin 81 MG Tab.Chew PO SCH (08:07)
[2018-08-20] MEDS: Ferrous Sulfate 325 MG Tab PO SCH ×3 (08:08→17:14)
[2018-08-20] MEDS: Lactobacillus Rhamnosus GG (Probiotic) Cap PO SCH ×2 (08:08→17:14)
[2018-08-20] MEDS: Clindamycin HCl 150 MG Cap PO SCH ×3 (08:08→17:14)
[2018-08-20] MEDS: Albuterol/Ipratropium 3.0-0.5 MG/3 ML Neb Soln NEB SCH ×4 (08:08→19:30)
[2018-08-20] MEDS: Magnesium Oxide 400 MG Tab PO SCH (08:09)
[2018-08-20] MEDS: CLINDAMYCIN 300 MG PO SCH ×3 (08:09→17:15)
[2018-08-20] MEDS: CIPROFLOXACIN 250 MG PO SCH ×2 (08:09→19:31)
[2018-08-20] MEDS: HYDRALAZINE 100 MG PO SCH ×3 (08:09→17:15)
[2018-08-20] MEDS: LOSARTAN 25 MG PO SCH (08:09)
[2018-08-20] MEDS: amLODIPine 5 MG Tab PO SCH (08:10)
[2018-08-20] MEDS: Finasteride 5 MG Tab PO SCH (19:31)
[2018-08-20] MEDS: Pantoprazole 40 MG Tab.CR PO SCH (19:31)
[2018-08-21] MEDS: amLODIPine 5 MG Tab PO SCH (08:35)
[2018-08-21] MEDS: CLINDAMYCIN 300 MG PO SCH ×3 (08:36→18:12)
[2018-08-21] MEDS: CIPROFLOXACIN 250 MG PO SCH ×2 (08:36→19:37)
[2018-08-21] MEDS: HYDRALAZINE 100 MG PO SCH ×3 (08:36→18:13)
[2018-08-21] MEDS: Clindamycin HCl 150 MG Cap PO SCH ×3 (08:36→18:13)
[2018-08-21] MEDS: LOSARTAN 25 MG PO SCH (08:36)
[2018-08-21] MEDS: Carvedilol 25 MG Tab PO SCH ×2 (08:37→18:13)
[2018-08-21] MEDS: Aspirin 81 MG Tab.Chew PO SCH (08:37)
[2018-08-21] MEDS: Bumetanide 1 MG Tab PO SCH (08:37)
[2018-08-21] MEDS: Lactobacillus Rhamnosus GG (Probiotic) Cap PO SCH ×2 (08:38→18:14)
[2018-08-21] MEDS: Magnesium Oxide 400 MG Tab PO SCH (08:38)
[2018-08-21] MEDS: Ferrous Sulfate 325 MG Tab PO SCH ×3 (08:38→18:14)
[2018-08-21] MEDS: Albuterol/Ipratropium 3.0-0.5 MG/3 ML Neb Soln NEB SCH ×4 (08:39→19:36)
[2018-08-21] MEDS: Promethazine 25 MG Tab PO PRN (10:06)
[2018-08-21] MEDS: Pantoprazole 40 MG Tab.CR PO SCH (19:37)
[2018-08-21] MEDS: Finasteride 5 MG Tab PO SCH (19:37)
[2018-08-22] MEDS: Carvedilol 25 MG Tab PO SCH ×2 (09:14→17:19)
[2018-08-22] MEDS: Aspirin 81 MG Tab.Chew PO SCH (09:15)
[2018-08-22] MEDS: Bumetanide 1 MG Tab PO SCH (09:16)
[2018-08-22] MEDS: CLINDAMYCIN 300 MG PO SCH ×3 (09:16→17:28)
[2018-08-22] MEDS: Clindamycin HCl 150 MG Cap PO SCH ×3 (09:16→17:26)
[2018-08-22] MEDS: Ferrous Sulfate 325 MG Tab PO SCH ×3 (09:17→17:27)
[2018-08-22] MEDS: Albuterol/Ipratropium 3.0-0.5 MG/3 ML Neb Soln NEB SCH ×4 (09:17→19:07)
[2018-08-22] MEDS: Lactobacillus Rhamnosus GG (Probiotic) Cap PO SCH ×2 (09:17→17:26)
[2018-08-22] MEDS: CIPROFLOXACIN 250 MG PO SCH ×2 (09:18→19:34)
[2018-08-22] MEDS: HYDRALAZINE 100 MG PO SCH ×3 (09:18→17:28)
[2018-08-22] MEDS: Magnesium Oxide 400 MG Tab PO SCH (09:18)
[2018-08-22] MEDS: LOSARTAN 25 MG PO SCH (09:19)
[2018-08-22] MEDS: amLODIPine 5 MG Tab PO SCH (09:19)
[2018-08-22] MEDS: Albuterol/Ipratropium 3.0-0.5 MG/3 ML Neb Soln NEB PRN (17:28)
[2018-08-22] MEDS: Finasteride 5 MG Tab PO SCH (19:35)
[2018-08-22] MEDS: Pantoprazole 40 MG Tab.CR PO SCH (19:35)
[2018-08-23] MEDS: Carvedilol 25 MG Tab PO SCH ×2 (07:36→17:10)
[2018-08-23] MEDS: Aspirin 81 MG Tab.Chew PO SCH (07:37)
[2018-08-23] MEDS: Albuterol/Ipratropium 3.0-0.5 MG/3 ML Neb Soln NEB SCH ×4 (07:37→19:01)
[2018-08-23] MEDS: Bumetanide 1 MG Tab PO SCH (07:37)
[2018-08-23] MEDS: Lactobacillus Rhamnosus GG (Probiotic) Cap PO SCH ×2 (07:37→17:11)
[2018-08-23] MEDS: Clindamycin HCl 150 MG Cap PO SCH ×3 (07:37→17:11)
[2018-08-23] MEDS: Ferrous Sulfate 325 MG Tab PO SCH ×3 (07:38→17:11)
[2018-08-23] MEDS: HYDRALAZINE 100 MG PO SCH ×3 (07:38→17:12)
[2018-08-23] MEDS: CIPROFLOXACIN 250 MG PO SCH ×2 (07:38→19:01)
[2018-08-23] MEDS: CLINDAMYCIN 300 MG PO SCH ×3 (07:38→17:11)
[2018-08-23] MEDS: Magnesium Oxide 400 MG Tab PO SCH (07:38)
[2018-08-23] MEDS: LOSARTAN 25 MG PO SCH (07:39)
[2018-08-23] MEDS: amLODIPine 5 MG Tab PO SCH (07:39)
[2018-08-23] MEDS: Pantoprazole 40 MG Tab.CR PO SCH (19:02)
[2018-08-23] MEDS: Finasteride 5 MG Tab PO SCH (19:02)
[2018-08-24] MEDS: Carvedilol 25 MG Tab PO SCH ×2 (07:25→17:10)
[2018-08-24] MEDS: Lactobacillus Rhamnosus GG (Probiotic) Cap PO SCH ×2 (07:26→17:11)
[2018-08-24] MEDS: Clindamycin HCl 150 MG Cap PO SCH ×3 (07:26→17:11)
[2018-08-24] MEDS: Aspirin 81 MG Tab.Chew PO SCH (07:26)
[2018-08-24] MEDS: Albuterol/Ipratropium 3.0-0.5 MG/3 ML Neb Soln NEB SCH ×4 (07:26→19:02)
[2018-08-24] MEDS: Bumetanide 1 MG Tab PO SCH (07:26)
[2018-08-24] MEDS: LOSARTAN 25 MG PO SCH (07:27)
[2018-08-24] MEDS: Ferrous Sulfate 325 MG Tab PO SCH ×3 (07:27→17:11)
[2018-08-24] MEDS: CIPROFLOXACIN 250 MG PO SCH ×2 (07:27→19:02)
[2018-08-24] MEDS: HYDRALAZINE 100 MG PO SCH ×3 (07:27→17:12)
[2018-08-24] MEDS: Magnesium Oxide 400 MG Tab PO SCH (07:27)
[2018-08-24] MEDS: CLINDAMYCIN 300 MG PO SCH ×3 (07:27→17:12)
[2018-08-24] MEDS: amLODIPine 5 MG Tab PO SCH (07:28)
[2018-08-24] MEDS: Pantoprazole 40 MG Tab.CR PO SCH (19:02)
[2018-08-24] MEDS: Finasteride 5 MG Tab PO SCH (19:02)
[2018-08-25] MEDS: Lactobacillus Rhamnosus GG (Probiotic) Cap PO SCH ×2 (07:58→17:12)
[2018-08-25] MEDS: Bumetanide 1 MG Tab PO SCH (07:58)
[2018-08-25] MEDS: Clindamycin HCl 150 MG Cap PO SCH ×3 (07:58→17:12)
[2018-08-25] MEDS: Carvedilol 25 MG Tab PO SCH ×2 (07:58→17:12)
[2018-08-25] MEDS: Aspirin 81 MG Tab.Chew PO SCH (07:58)
[2018-08-25] MEDS: Ferrous Sulfate 325 MG Tab PO SCH ×3 (07:59→17:13)
[2018-08-25] MEDS: Magnesium Oxide 400 MG Tab PO SCH (07:59)
[2018-08-25] MEDS: Albuterol/Ipratropium 3.0-0.5 MG/3 ML Neb Soln NEB SCH ×4 (07:59→19:02)
[2018-08-25] MEDS: HYDRALAZINE 100 MG PO SCH ×3 (08:00→17:13)
[2018-08-25] MEDS: CLINDAMYCIN 300 MG PO SCH ×3 (08:00→17:13)
[2018-08-25] MEDS: LOSARTAN 25 MG PO SCH (08:00)
[2018-08-25] MEDS: amLODIPine 5 MG Tab PO SCH (08:00)
[2018-08-25] MEDS: CIPROFLOXACIN 250 MG PO SCH ×2 (08:00→19:02)
[2018-08-25] MEDS: Finasteride 5 MG Tab PO SCH (19:02)
[2018-08-25] MEDS: Pantoprazole 40 MG Tab.CR PO SCH (19:02)
[2018-08-26] MEDS: Carvedilol 25 MG Tab PO SCH ×2 (07:46→17:23)
[2018-08-26] MEDS: Aspirin 81 MG Tab.Chew PO SCH (07:46)
[2018-08-26] MEDS: Albuterol/Ipratropium 3.0-0.5 MG/3 ML Neb Soln NEB SCH ×4 (07:47→19:27)
[2018-08-26] MEDS: Bumetanide 1 MG Tab PO SCH (07:47)
[2018-08-26] MEDS: Clindamycin HCl 150 MG Cap PO SCH ×3 (07:47→17:24)
[2018-08-26] MEDS: Lactobacillus Rhamnosus GG (Probiotic) Cap PO SCH ×2 (07:47→17:24)
[2018-08-26] MEDS: Ferrous Sulfate 325 MG Tab PO SCH ×3 (07:48→17:24)
[2018-08-26] MEDS: CIPROFLOXACIN 250 MG PO SCH ×2 (07:49→19:27)
[2018-08-26] MEDS: amLODIPine 5 MG Tab PO SCH (07:49)
[2018-08-26] MEDS: Magnesium Oxide 400 MG Tab PO SCH (07:49)
[2018-08-26] MEDS: HYDRALAZINE 100 MG PO SCH ×3 (07:49→17:25)
[2018-08-26] MEDS: CLINDAMYCIN 300 MG PO SCH ×3 (07:49→17:25)
[2018-08-26] MEDS: LOSARTAN 25 MG PO SCH (07:49)
[2018-08-26] MEDS: Pantoprazole 40 MG Tab.CR PO SCH (19:27)
[2018-08-26] MEDS: Finasteride 5 MG Tab PO SCH (19:27)
[2018-08-27] MEDS: Carvedilol 25 MG Tab PO SCH ×2 (07:40→16:58)
[2018-08-27] MEDS: Clindamycin HCl 150 MG Cap PO SCH ×3 (07:41→16:59)
[2018-08-27] MEDS: HYDRALAZINE 100 MG PO SCH ×3 (07:41→16:59)
[2018-08-27] MEDS: Bumetanide 1 MG Tab PO SCH (07:41)
[2018-08-27] MEDS: CLINDAMYCIN 300 MG PO SCH ×3 (07:41→16:59)
[2018-08-27] MEDS: CIPROFLOXACIN 250 MG PO SCH ×2 (07:41→19:28)
[2018-08-27] MEDS: amLODIPine 5 MG Tab PO SCH (07:42)
[2018-08-27] MEDS: Aspirin 81 MG Tab.Chew PO SCH (07:42)
[2018-08-27] MEDS: LOSARTAN 25 MG PO SCH (07:42)
[2018-08-27] MEDS: Lactobacillus Rhamnosus GG (Probiotic) Cap PO SCH ×2 (07:42→17:00)
[2018-08-27] MEDS: Ferrous Sulfate 325 MG Tab PO SCH ×3 (07:43→17:00)
[2018-08-27] MEDS: Magnesium Oxide 400 MG Tab PO SCH (07:43)
[2018-08-27] MEDS: Albuterol/Ipratropium 3.0-0.5 MG/3 ML Neb Soln NEB SCH ×4 (07:43→19:28)
[2018-08-27] MEDS: Pantoprazole 40 MG Tab.CR PO SCH (19:28)
[2018-08-27] MEDS: Finasteride 5 MG Tab PO SCH (19:28)
[2018-08-28] MEDS: Carvedilol 25 MG Tab PO SCH ×2 (07:50→17:32)
[2018-08-28] MEDS: Aspirin 81 MG Tab.Chew PO SCH (07:50)
[2018-08-28] MEDS: Bumetanide 1 MG Tab PO SCH (07:51)
[2018-08-28] MEDS: Albuterol/Ipratropium 3.0-0.5 MG/3 ML Neb Soln NEB SCH ×4 (07:51→19:39)
[2018-08-28] MEDS: Ferrous Sulfate 325 MG Tab PO SCH ×3 (07:51→17:33)
[2018-08-28] MEDS: Lactobacillus Rhamnosus GG (Probiotic) Cap PO SCH ×2 (07:51→17:32)
[2018-08-28] MEDS: Clindamycin HCl 150 MG Cap PO SCH ×3 (07:51→17:32)
[2018-08-28] MEDS: HYDRALAZINE 100 MG PO SCH ×3 (07:52→17:33)
[2018-08-28] MEDS: Magnesium Oxide 400 MG Tab PO SCH (07:52)
[2018-08-28] MEDS: CLINDAMYCIN 300 MG PO SCH ×3 (07:52→17:33)
[2018-08-28] MEDS: CIPROFLOXACIN 250 MG PO SCH ×2 (07:52→19:40)
[2018-08-28] MEDS: amLODIPine 5 MG Tab PO SCH (07:53)
[2018-08-28] MEDS: LOSARTAN 25 MG PO SCH (07:53)
[2018-08-28] MEDS: Finasteride 5 MG Tab PO SCH (19:41)
[2018-08-28] MEDS: Pantoprazole 40 MG Tab.CR PO SCH (19:41)
[2018-08-29] MEDS: Aspirin 81 MG Tab.Chew PO SCH (07:54)
[2018-08-29] MEDS: Carvedilol 25 MG Tab PO SCH ×2 (07:54→17:24)
[2018-08-29] MEDS: Clindamycin HCl 150 MG Cap PO SCH ×3 (07:55→17:25)
[2018-08-29] MEDS: HYDRALAZINE 100 MG PO SCH ×3 (07:55→17:25)
[2018-08-29] MEDS: Bumetanide 1 MG Tab PO SCH (07:55)
[2018-08-29] MEDS: CIPROFLOXACIN 250 MG PO SCH ×2 (07:55→19:10)
[2018-08-29] MEDS: LOSARTAN 25 MG PO SCH (07:55)
[2018-08-29] MEDS: amLODIPine 5 MG Tab PO SCH (07:55)
[2018-08-29] MEDS: CLINDAMYCIN 300 MG PO SCH ×3 (07:55→17:25)
[2018-08-29] MEDS: Lactobacillus Rhamnosus GG (Probiotic) Cap PO SCH ×2 (07:56→17:26)
[2018-08-29] MEDS: Ferrous Sulfate 325 MG Tab PO SCH ×3 (07:56→17:26)
[2018-08-29] MEDS: Albuterol/Ipratropium 3.0-0.5 MG/3 ML Neb Soln NEB SCH ×4 (07:57→19:10)
[2018-08-29] MEDS: Magnesium Oxide 400 MG Tab PO SCH (07:57)
[2018-08-29] MEDS: Finasteride 5 MG Tab PO SCH (19:10)
[2018-08-29] MEDS: Pantoprazole 40 MG Tab.CR PO SCH (19:11)
[2018-08-30] MEDS: Carvedilol 25 MG Tab PO SCH ×2 (08:52→17:08)
[2018-08-30] MEDS: Clindamycin HCl 150 MG Cap PO SCH (08:53)
[2018-08-30] MEDS: HYDRALAZINE 100 MG PO SCH ×3 (08:53→17:08)
[2018-08-30] MEDS: CLINDAMYCIN 300 MG PO SCH (08:53)
[2018-08-30] MEDS: CIPROFLOXACIN 250 MG PO SCH (08:53)
[2018-08-30] MEDS: amLODIPine 5 MG Tab PO SCH (08:53)
[2018-08-30] MEDS: Bumetanide 1 MG Tab PO SCH (08:53)
[2018-08-30] MEDS: LOSARTAN 25 MG PO SCH (08:53)
[2018-08-30] MEDS: Aspirin 81 MG Tab.Chew PO SCH (08:54)
[2018-08-30] MEDS: Lactobacillus Rhamnosus GG (Probiotic) Cap PO SCH ×2 (08:54→17:09)
[2018-08-30] MEDS: Ferrous Sulfate 325 MG Tab PO SCH ×3 (08:54→17:09)
[2018-08-30] MEDS: Magnesium Oxide 400 MG Tab PO SCH (08:56)
[2018-08-30] MEDS: Albuterol/Ipratropium 3.0-0.5 MG/3 ML Neb Soln NEB SCH ×4 (08:56→19:02)
--- NOTE | 2018-08-30 10:18 | PCM.SN ---
- Free Text/Narrative Note: patient is having increased drainage to left heel wound flap. this was cultured and noted to be staph aureus +. It was also noted to be resistant to clindamycin and levofloxacin. Patient is currently taking clindamycin and ciprofloxin. Call was placed to infectious disease. Recommendation was made to stop clindamycin and cipro and switch patient to Keflex 500mg every 12 hours for 2 weeks, then re-evaluate.
[2018-08-30] MEDS: CEPHALEXIN 500MG CAPSULE PO SCH (19:01)
[2018-08-30] MEDS: Finasteride 5 MG Tab PO SCH (19:02)
[2018-08-30] MEDS: Pantoprazole 40 MG Tab.CR PO SCH (19:02)
[2018-08-31] MEDS: Carvedilol 25 MG Tab PO SCH ×2 (08:05→17:41)
[2018-08-31] MEDS: Aspirin 81 MG Tab.Chew PO SCH (08:06)
[2018-08-31] MEDS: Bumetanide 1 MG Tab PO SCH (08:06)
[2018-08-31] MEDS: Lactobacillus Rhamnosus GG (Probiotic) Cap PO SCH ×2 (08:07→17:29)
[2018-08-31] MEDS: Albuterol/Ipratropium 3.0-0.5 MG/3 ML Neb Soln NEB SCH ×4 (08:07→19:30)
[2018-08-31] MEDS: CEPHALEXIN 500MG CAPSULE PO SCH ×2 (08:09→19:30)
[2018-08-31] MEDS: Magnesium Oxide 400 MG Tab PO SCH (08:09)
[2018-08-31] MEDS: Ferrous Sulfate 325 MG Tab PO SCH ×3 (08:09→17:30)
[2018-08-31] MEDS: LOSARTAN 25 MG PO SCH (08:10)
[2018-08-31] MEDS: HYDRALAZINE 100 MG PO SCH ×3 (08:10→17:30)
[2018-08-31] MEDS: amLODIPine 5 MG Tab PO SCH (08:10)
[2018-08-31] MEDS: Finasteride 5 MG Tab PO SCH (19:30)
[2018-08-31] MEDS: Pantoprazole 40 MG Tab.CR PO SCH (19:30)
[2018-09-01] MEDS: Aspirin 81 MG Tab.Chew PO SCH (07:32)
[2018-09-01] MEDS: Bumetanide 1 MG Tab PO SCH (07:33)
[2018-09-01] MEDS: Lactobacillus Rhamnosus GG (Probiotic) Cap PO SCH ×2 (07:33→17:38)
[2018-09-01] MEDS: Ferrous Sulfate 325 MG Tab PO SCH ×3 (07:34→17:38)
[2018-09-01] MEDS: Albuterol/Ipratropium 3.0-0.5 MG/3 ML Neb Soln NEB SCH ×4 (07:34→19:29)
[2018-09-01] MEDS: CEPHALEXIN 500MG CAPSULE PO SCH ×2 (07:35→19:30)
[2018-09-01] MEDS: Magnesium Oxide 400 MG Tab PO SCH (07:35)
[2018-09-01] MEDS: HYDRALAZINE 100 MG PO SCH ×3 (07:35→17:40)
[2018-09-01] MEDS: amLODIPine 5 MG Tab PO SCH (07:43)
[2018-09-01] MEDS: Carvedilol 25 MG Tab PO SCH ×2 (07:43→17:40)
[2018-09-01] MEDS: LOSARTAN 25 MG PO SCH (07:44)
[2018-09-01] MEDS: Finasteride 5 MG Tab PO SCH (19:30)
[2018-09-01] MEDS: Pantoprazole 40 MG Tab.CR PO SCH (19:30)
[2018-09-02] MEDS: Bumetanide 1 MG Tab PO SCH (07:35)
[2018-09-02] MEDS: HYDRALAZINE 100 MG PO SCH ×3 (07:35→17:10)
[2018-09-02] MEDS: Carvedilol 25 MG Tab PO SCH ×2 (07:35→17:10)
[2018-09-02] MEDS: CEPHALEXIN 500MG CAPSULE PO SCH ×2 (07:35→19:02)
[2018-09-02] MEDS: amLODIPine 5 MG Tab PO SCH (07:36)
[2018-09-02] MEDS: LOSARTAN 25 MG PO SCH (07:36)
[2018-09-02] MEDS: Aspirin 81 MG Tab.Chew PO SCH (07:36)
[2018-09-02] MEDS: Ferrous Sulfate 325 MG Tab PO SCH ×3 (07:37→17:11)
[2018-09-02] MEDS: Lactobacillus Rhamnosus GG (Probiotic) Cap PO SCH ×2 (07:37→17:11)
[2018-09-02] MEDS: Magnesium Oxide 400 MG Tab PO SCH (07:38)
[2018-09-02] MEDS: Albuterol/Ipratropium 3.0-0.5 MG/3 ML Neb Soln NEB SCH ×2 (07:38→20:01)
[2018-09-02] MEDS: Pantoprazole 40 MG Tab.CR PO SCH (19:02)
[2018-09-02] MEDS: Finasteride 5 MG Tab PO SCH (19:02)
[2018-09-03] MEDS: Carvedilol 25 MG Tab PO SCH ×2 (07:45→17:16)
[2018-09-03] MEDS: Albuterol/Ipratropium 3.0-0.5 MG/3 ML Neb Soln NEB SCH ×2 (07:46→19:07)
[2018-09-03] MEDS: Lactobacillus Rhamnosus GG (Probiotic) Cap PO SCH ×2 (07:46→17:16)
[2018-09-03] MEDS: Bumetanide 1 MG Tab PO SCH (07:46)
[2018-09-03] MEDS: Aspirin 81 MG Tab.Chew PO SCH (07:46)
[2018-09-03] MEDS: Magnesium Oxide 400 MG Tab PO SCH (07:48)
[2018-09-03] MEDS: amLODIPine 5 MG Tab PO SCH (07:48)
[2018-09-03] MEDS: CEPHALEXIN 500MG CAPSULE PO SCH ×2 (07:48→19:06)
[2018-09-03] MEDS: Ferrous Sulfate 325 MG Tab PO SCH ×3 (07:48→17:17)
[2018-09-03] MEDS: LOSARTAN 25 MG PO SCH (07:48)
[2018-09-03] MEDS: HYDRALAZINE 100 MG PO SCH ×3 (07:48→17:17)
[2018-09-03] MEDS: Multivitamin Tab PO SCH (07:49)
[2018-09-03] MEDS: Finasteride 5 MG Tab PO SCH (19:07)
[2018-09-03] MEDS: Pantoprazole 40 MG Tab.CR PO SCH (19:07)
[2018-09-04] MEDS: Carvedilol 25 MG Tab PO SCH ×2 (07:44→17:15)
[2018-09-04] MEDS: Bumetanide 1 MG Tab PO SCH (07:45)
[2018-09-04] MEDS: Aspirin 81 MG Tab.Chew PO SCH (07:45)
[2018-09-04] MEDS: Lactobacillus Rhamnosus GG (Probiotic) Cap PO SCH ×2 (07:45→17:15)
[2018-09-04] MEDS: Albuterol/Ipratropium 3.0-0.5 MG/3 ML Neb Soln NEB SCH ×2 (07:45→19:44)
[2018-09-04] MEDS: amLODIPine 5 MG Tab PO SCH (07:46)
[2018-09-04] MEDS: HYDRALAZINE 100 MG PO SCH ×3 (07:46→17:16)
[2018-09-04] MEDS: Magnesium Oxide 400 MG Tab PO SCH (07:46)
[2018-09-04] MEDS: LOSARTAN 25 MG PO SCH (07:46)
[2018-09-04] MEDS: Ferrous Sulfate 325 MG Tab PO SCH ×3 (07:46→17:16)
[2018-09-04] MEDS: CEPHALEXIN 500MG CAPSULE PO SCH ×2 (07:46→19:45)
[2018-09-04] MEDS: Multivitamin Tab PO SCH (07:47)
[2018-09-04] MEDS: Finasteride 5 MG Tab PO SCH (19:45)
[2018-09-04] MEDS: Pantoprazole 40 MG Tab.CR PO SCH (19:45)
[2018-09-05] MEDS: Carvedilol 25 MG Tab PO SCH ×2 (08:01→17:11)
[2018-09-05] MEDS: Bumetanide 1 MG Tab PO SCH (08:02)
[2018-09-05] MEDS: Aspirin 81 MG Tab.Chew PO SCH (08:02)
[2018-09-05] MEDS: Albuterol/Ipratropium 3.0-0.5 MG/3 ML Neb Soln NEB SCH ×2 (08:03→19:49)
[2018-09-05] MEDS: Lactobacillus Rhamnosus GG (Probiotic) Cap PO SCH ×2 (08:03→17:11)
[2018-09-05] MEDS: Ferrous Sulfate 325 MG Tab PO SCH ×3 (08:03→17:12)
[2018-09-05] MEDS: amLODIPine 5 MG Tab PO SCH (08:04)
[2018-09-05] MEDS: HYDRALAZINE 100 MG PO SCH ×3 (08:04→17:12)
[2018-09-05] MEDS: LOSARTAN 25 MG PO SCH (08:04)
[2018-09-05] MEDS: Magnesium Oxide 400 MG Tab PO SCH (08:04)
[2018-09-05] MEDS: Tamsulosin 0.4 MG Cap.ER PO SCH (08:04)
[2018-09-05] MEDS: CEPHALEXIN 500MG CAPSULE PO SCH ×2 (08:04→19:48)
[2018-09-05] MEDS: Multivitamin Tab PO SCH (08:05)
[2018-09-05] MEDS: Pantoprazole 40 MG Tab.CR PO SCH (19:48)
[2018-09-05] MEDS: Finasteride 5 MG Tab PO SCH (19:48)
[2018-09-06] MEDS: Tamsulosin 0.4 MG Cap.ER PO SCH (07:50)
[2018-09-06] MEDS: Bumetanide 1 MG Tab PO SCH (07:50)
[2018-09-06] MEDS: Carvedilol 25 MG Tab PO SCH ×2 (07:50→17:35)
[2018-09-06] MEDS: HYDRALAZINE 100 MG PO SCH ×3 (07:51→17:35)
[2018-09-06] MEDS: CEPHALEXIN 500MG CAPSULE PO SCH ×2 (07:51→19:32)
[2018-09-06] MEDS: LOSARTAN 25 MG PO SCH (07:51)
[2018-09-06] MEDS: amLODIPine 5 MG Tab PO SCH (07:52)
[2018-09-06] MEDS: Aspirin 81 MG Tab.Chew PO SCH (07:52)
[2018-09-06] MEDS: Magnesium Oxide 400 MG Tab PO SCH (07:53)
[2018-09-06] MEDS: Albuterol/Ipratropium 3.0-0.5 MG/3 ML Neb Soln NEB SCH ×2 (07:53→19:32)
[2018-09-06] MEDS: Ferrous Sulfate 325 MG Tab PO SCH ×3 (07:53→17:35)
[2018-09-06] MEDS: Lactobacillus Rhamnosus GG (Probiotic) Cap PO SCH ×2 (07:53→17:36)
[2018-09-06] MEDS: Multivitamin Tab PO SCH (07:54)
[2018-09-06] MEDS: Pantoprazole 40 MG Tab.CR PO SCH (19:32)
[2018-09-06] MEDS: Finasteride 5 MG Tab PO SCH (19:32)
[2018-09-07] MEDS: Carvedilol 25 MG Tab PO SCH ×2 (08:26→17:38)
[2018-09-07] MEDS: Aspirin 81 MG Tab.Chew PO SCH (08:27)
[2018-09-07] MEDS: Bumetanide 1 MG Tab PO SCH (08:27)
[2018-09-07] MEDS: Albuterol/Ipratropium 3.0-0.5 MG/3 ML Neb Soln NEB SCH ×2 (08:30→19:36)
[2018-09-07] MEDS: Ferrous Sulfate 325 MG Tab PO SCH ×3 (08:30→17:42)
[2018-09-07] MEDS: Magnesium Oxide 400 MG Tab PO SCH (08:31)
[2018-09-07] MEDS: CEPHALEXIN 500MG CAPSULE PO SCH ×2 (08:31→19:37)
[2018-09-07] MEDS: HYDRALAZINE 100 MG PO SCH ×3 (08:31→17:41)
[2018-09-07] MEDS: Tamsulosin 0.4 MG Cap.ER PO SCH (08:31)
[2018-09-07] MEDS: amLODIPine 5 MG Tab PO SCH (08:32)
[2018-09-07] MEDS: LOSARTAN 25 MG PO SCH (08:32)
[2018-09-07] MEDS: Multivitamin Tab PO SCH (08:33)
[2018-09-07] MEDS: Lactobacillus Rhamnosus GG (Probiotic) Cap PO SCH ×2 (11:38→17:42)
[2018-09-07] MEDS: Pantoprazole 40 MG Tab.CR PO SCH (19:37)
[2018-09-07] MEDS: Finasteride 5 MG Tab PO SCH (19:37)
[2018-09-08] MEDS: Carvedilol 25 MG Tab PO SCH ×2 (07:36→17:25)
[2018-09-08] MEDS: Aspirin 81 MG Tab.Chew PO SCH (07:37)
[2018-09-08] MEDS: Bumetanide 1 MG Tab PO SCH (07:37)
[2018-09-08] MEDS: Lactobacillus Rhamnosus GG (Probiotic) Cap PO SCH ×2 (07:38→17:29)
[2018-09-08] MEDS: Albuterol/Ipratropium 3.0-0.5 MG/3 ML Neb Soln NEB SCH ×2 (07:38→19:08)
[2018-09-08] MEDS: Ferrous Sulfate 325 MG Tab PO SCH ×3 (07:39→17:30)
[2018-09-08] MEDS: Tamsulosin 0.4 MG Cap.ER PO SCH (07:39)
[2018-09-08] MEDS: Magnesium Oxide 400 MG Tab PO SCH (07:39)
[2018-09-08] MEDS: LOSARTAN 25 MG PO SCH (07:40)
[2018-09-08] MEDS: amLODIPine 5 MG Tab PO SCH (07:40)
[2018-09-08] MEDS: HYDRALAZINE 100 MG PO SCH ×3 (07:40→17:30)
[2018-09-08] MEDS: CEPHALEXIN 500MG CAPSULE PO SCH ×2 (07:40→19:08)
[2018-09-08] MEDS: Multivitamin Tab PO SCH (07:41)
[2018-09-08] MEDS: Finasteride 5 MG Tab PO SCH (19:08)
[2018-09-08] MEDS: Pantoprazole 40 MG Tab.CR PO SCH (19:08)
[2018-09-09] MEDS: Carvedilol 25 MG Tab PO SCH ×2 (07:53→17:18)
[2018-09-09] MEDS: Aspirin 81 MG Tab.Chew PO SCH (07:54)
[2018-09-09] MEDS: Bumetanide 1 MG Tab PO SCH (07:54)
[2018-09-09] MEDS: Albuterol/Ipratropium 3.0-0.5 MG/3 ML Neb Soln NEB SCH ×2 (07:54→19:33)
[2018-09-09] MEDS: Lactobacillus Rhamnosus GG (Probiotic) Cap PO SCH ×2 (07:54→17:18)
[2018-09-09] MEDS: Tamsulosin 0.4 MG Cap.ER PO SCH (07:56)
[2018-09-09] MEDS: Ferrous Sulfate 325 MG Tab PO SCH ×3 (07:56→17:19)
[2018-09-09] MEDS: HYDRALAZINE 100 MG PO SCH ×3 (07:57→17:19)
[2018-09-09] MEDS: CEPHALEXIN 500MG CAPSULE PO SCH ×2 (07:57→19:33)
[2018-09-09] MEDS: Magnesium Oxide 400 MG Tab PO SCH (07:57)
[2018-09-09] MEDS: LOSARTAN 25 MG PO SCH (07:57)
[2018-09-09] MEDS: amLODIPine 5 MG Tab PO SCH (07:57)
[2018-09-09] MEDS: Multivitamin Tab PO SCH (07:58)
[2018-09-09] MEDS: Acetaminophen 325 MG Tab PO PRN (13:00)
[2018-09-09] MEDS: Finasteride 5 MG Tab PO SCH (19:33)
[2018-09-09] MEDS: Pantoprazole 40 MG Tab.CR PO SCH (19:33)
[2018-09-10] MEDS: Bumetanide 1 MG Tab PO SCH (08:22)
[2018-09-10] MEDS: Carvedilol 25 MG Tab PO SCH ×2 (08:22→17:35)
[2018-09-10] MEDS: LOSARTAN 25 MG PO SCH (08:23)
[2018-09-10] MEDS: CEPHALEXIN 500MG CAPSULE PO SCH ×2 (08:23→19:23)
[2018-09-10] MEDS: amLODIPine 5 MG Tab PO SCH (08:23)
[2018-09-10] MEDS: HYDRALAZINE 100 MG PO SCH ×3 (08:23→17:36)
[2018-09-10] MEDS: Tamsulosin 0.4 MG Cap.ER PO SCH (08:23)
[2018-09-10] MEDS: Ferrous Sulfate 325 MG Tab PO SCH ×3 (08:24→17:37)
[2018-09-10] MEDS: Multivitamin Tab PO SCH (08:24)
[2018-09-10] MEDS: Lactobacillus Rhamnosus GG (Probiotic) Cap PO SCH ×2 (08:24→17:37)
[2018-09-10] MEDS: Albuterol/Ipratropium 3.0-0.5 MG/3 ML Neb Soln NEB SCH ×2 (08:25→19:23)
[2018-09-10] MEDS: Aspirin 81 MG Tab.Chew PO SCH (08:25)
[2018-09-10] MEDS: Magnesium Oxide 400 MG Tab PO SCH (08:26)
[2018-09-10] MEDS: Pantoprazole 40 MG Tab.CR PO SCH (19:23)
[2018-09-10] MEDS: Finasteride 5 MG Tab PO SCH (19:23)
[2018-09-11] MEDS: Carvedilol 25 MG Tab PO SCH ×2 (07:52→18:04)
[2018-09-11] MEDS: Tamsulosin 0.4 MG Cap.ER PO SCH (07:53)
[2018-09-11] MEDS: Bumetanide 1 MG Tab PO SCH (07:53)
[2018-09-11] MEDS: HYDRALAZINE 100 MG PO SCH ×3 (07:54→18:04)
[2018-09-11] MEDS: amLODIPine 5 MG Tab PO SCH (07:54)
[2018-09-11] MEDS: CEPHALEXIN 500MG CAPSULE PO SCH ×2 (07:54→19:29)
[2018-09-11] MEDS: LOSARTAN 25 MG PO SCH (07:54)
[2018-09-11] MEDS: Multivitamin Tab PO SCH (07:55)
[2018-09-11] MEDS: Magnesium Oxide 400 MG Tab PO SCH (07:55)
[2018-09-11] MEDS: Ferrous Sulfate 325 MG Tab PO SCH ×3 (07:56→18:05)
[2018-09-11] MEDS: Lactobacillus Rhamnosus GG (Probiotic) Cap PO SCH ×2 (07:56→18:05)
[2018-09-11] MEDS: Aspirin 81 MG Tab.Chew PO SCH (07:56)
[2018-09-11] MEDS: Albuterol/Ipratropium 3.0-0.5 MG/3 ML Neb Soln NEB SCH ×2 (07:56→19:29)
[2018-09-11] MEDS: Finasteride 5 MG Tab PO SCH (19:31)
[2018-09-11] MEDS: Pantoprazole 40 MG Tab.CR PO SCH (19:31)
[2018-09-11] MEDS: Acetaminophen 325 MG Tab PO PRN (19:47)
[2018-09-12] MEDS: Carvedilol 25 MG Tab PO SCH ×2 (07:50→17:01)
[2018-09-12] MEDS: Tamsulosin 0.4 MG Cap.ER PO SCH (07:51)
[2018-09-12] MEDS: Bumetanide 1 MG Tab PO SCH (07:51)
[2018-09-12] MEDS: CEPHALEXIN 500MG CAPSULE PO SCH ×2 (07:51→19:16)
[2018-09-12] MEDS: LOSARTAN 25 MG PO SCH (07:51)
[2018-09-12] MEDS: HYDRALAZINE 100 MG PO SCH ×3 (07:51→17:01)
[2018-09-12] MEDS: amLODIPine 5 MG Tab PO SCH (07:52)
[2018-09-12] MEDS: Aspirin 81 MG Tab.Chew PO SCH (07:52)
[2018-09-12] MEDS: Lactobacillus Rhamnosus GG (Probiotic) Cap PO SCH ×2 (07:52→17:02)
[2018-09-12] MEDS: Albuterol/Ipratropium 3.0-0.5 MG/3 ML Neb Soln NEB SCH ×2 (07:53→19:16)
[2018-09-12] MEDS: Multivitamin Tab PO SCH (07:53)
[2018-09-12] MEDS: Ferrous Sulfate 325 MG Tab PO SCH ×3 (07:53→17:02)
[2018-09-12] MEDS: Magnesium Oxide 400 MG Tab PO SCH (07:54)
[2018-09-12] MEDS: Finasteride 5 MG Tab PO SCH (19:16)
[2018-09-12] MEDS: Pantoprazole 40 MG Tab.CR PO SCH (19:16)
[2018-09-13] MEDS: Albuterol/Ipratropium 3.0-0.5 MG/3 ML Neb Soln NEB SCH ×2 (07:45→18:59)
[2018-09-13] MEDS: Bumetanide 1 MG Tab PO SCH (07:46)
[2018-09-13] MEDS: Aspirin 81 MG Tab.Chew PO SCH (07:46)
[2018-09-13] MEDS: Lactobacillus Rhamnosus GG (Probiotic) Cap PO SCH ×2 (07:47→17:27)
[2018-09-13] MEDS: Ferrous Sulfate 325 MG Tab PO SCH ×3 (07:47→17:28)
[2018-09-13] MEDS: Carvedilol 25 MG Tab PO SCH ×2 (07:47→17:27)
[2018-09-13] MEDS: Tamsulosin 0.4 MG Cap.ER PO SCH (07:48)
[2018-09-13] MEDS: LOSARTAN 25 MG PO SCH (07:48)
[2018-09-13] MEDS: Magnesium Oxide 400 MG Tab PO SCH (07:48)
[2018-09-13] MEDS: CEPHALEXIN 500MG CAPSULE PO SCH (07:48)
[2018-09-13] MEDS: HYDRALAZINE 100 MG PO SCH ×3 (07:48→17:28)
[2018-09-13] MEDS: Multivitamin Tab PO SCH (07:49)
[2018-09-13] MEDS: amLODIPine 5 MG Tab PO SCH (07:49)
[2018-09-13] MEDS: Pantoprazole 40 MG Tab.CR PO SCH (18:59)
[2018-09-13] MEDS: Finasteride 5 MG Tab PO SCH (18:59)
[2018-09-14] MEDS: Carvedilol 25 MG Tab PO SCH ×2 (07:55→17:18)
[2018-09-14] MEDS: Albuterol/Ipratropium 3.0-0.5 MG/3 ML Neb Soln NEB SCH ×2 (07:56→20:16)
[2018-09-14] MEDS: Lactobacillus Rhamnosus GG (Probiotic) Cap PO SCH ×2 (07:56→17:18)
[2018-09-14] MEDS: Bumetanide 1 MG Tab PO SCH (07:56)
[2018-09-14] MEDS: Aspirin 81 MG Tab.Chew PO SCH (07:56)
[2018-09-14] MEDS: LOSARTAN 25 MG PO SCH (07:57)
[2018-09-14] MEDS: Magnesium Oxide 400 MG Tab PO SCH (07:57)
[2018-09-14] MEDS: Tamsulosin 0.4 MG Cap.ER PO SCH (07:57)
[2018-09-14] MEDS: HYDRALAZINE 100 MG PO SCH ×3 (07:57→17:19)
[2018-09-14] MEDS: Ferrous Sulfate 325 MG Tab PO SCH ×3 (07:57→17:19)
[2018-09-14] MEDS: Multivitamin Tab PO SCH (07:58)
[2018-09-14] MEDS: amLODIPine 5 MG Tab PO SCH (07:58)
[2018-09-14] MEDS: Pantoprazole 40 MG Tab.CR PO SCH (20:16)
[2018-09-14] MEDS: Finasteride 5 MG Tab PO SCH (20:16)
[2018-09-15] MEDS: Carvedilol 25 MG Tab PO SCH ×2 (08:04→18:00)
[2018-09-15] MEDS: Aspirin 81 MG Tab.Chew PO SCH (08:05)
[2018-09-15] MEDS: Bumetanide 1 MG Tab PO SCH (08:05)
[2018-09-15] MEDS: Lactobacillus Rhamnosus GG (Probiotic) Cap PO SCH ×2 (08:05→18:01)
[2018-09-15] MEDS: Tamsulosin 0.4 MG Cap.ER PO SCH (08:06)
[2018-09-15] MEDS: Magnesium Oxide 400 MG Tab PO SCH (08:06)
[2018-09-15] MEDS: Ferrous Sulfate 325 MG Tab PO SCH ×3 (08:06→18:01)
[2018-09-15] MEDS: Albuterol/Ipratropium 3.0-0.5 MG/3 ML Neb Soln NEB SCH ×2 (08:06→20:10)
[2018-09-15] MEDS: amLODIPine 5 MG Tab PO SCH (08:07)
[2018-09-15] MEDS: HYDRALAZINE 100 MG PO SCH ×3 (08:07→18:01)
[2018-09-15] MEDS: LOSARTAN 25 MG PO SCH (08:07)
[2018-09-15] MEDS: Multivitamin Tab PO SCH (08:08)
[2018-09-15] MEDS: Pantoprazole 40 MG Tab.CR PO SCH (20:10)
[2018-09-15] MEDS: Finasteride 5 MG Tab PO SCH (20:10)
[2018-09-16] MEDS: Aspirin 81 MG Tab.Chew PO SCH (07:42)
[2018-09-16] MEDS: Ferrous Sulfate 325 MG Tab PO SCH ×3 (07:43→17:22)
[2018-09-16] MEDS: Lactobacillus Rhamnosus GG (Probiotic) Cap PO SCH ×2 (07:43→17:22)
[2018-09-16] MEDS: Tamsulosin 0.4 MG Cap.ER PO SCH (07:44)
[2018-09-16] MEDS: Multivitamin Tab PO SCH (07:44)
[2018-09-16] MEDS: Magnesium Oxide 400 MG Tab PO SCH (07:44)
[2018-09-16] MEDS: Bumetanide 1 MG Tab PO SCH (07:44)
[2018-09-16] MEDS: HYDRALAZINE 100 MG PO SCH ×3 (07:45→17:21)
[2018-09-16] MEDS: LOSARTAN 25 MG PO SCH (07:45)
[2018-09-16] MEDS: amLODIPine 5 MG Tab PO SCH (07:45)
[2018-09-16] MEDS: Carvedilol 25 MG Tab PO SCH ×2 (07:51→17:21)
[2018-09-16] MEDS: Albuterol/Ipratropium 3.0-0.5 MG/3 ML Neb Soln NEB SCH ×2 (07:51→20:05)
[2018-09-16] MEDS: Finasteride 5 MG Tab PO SCH (20:05)
[2018-09-16] MEDS: Pantoprazole 40 MG Tab.CR PO SCH (20:05)
[2018-09-17] MEDS: Lactobacillus Rhamnosus GG (Probiotic) Cap PO SCH ×2 (07:34→17:08)
[2018-09-17] MEDS: Bumetanide 1 MG Tab PO SCH (07:34)
[2018-09-17] MEDS: Carvedilol 25 MG Tab PO SCH ×2 (07:34→17:07)
[2018-09-17] MEDS: Aspirin 81 MG Tab.Chew PO SCH (07:34)
[2018-09-17] MEDS: Albuterol/Ipratropium 3.0-0.5 MG/3 ML Neb Soln NEB SCH ×2 (07:34→19:05)
[2018-09-17] MEDS: amLODIPine 5 MG Tab PO SCH (07:35)
[2018-09-17] MEDS: LOSARTAN 25 MG PO SCH (07:35)
[2018-09-17] MEDS: Tamsulosin 0.4 MG Cap.ER PO SCH (07:35)
[2018-09-17] MEDS: Magnesium Oxide 400 MG Tab PO SCH (07:35)
[2018-09-17] MEDS: HYDRALAZINE 100 MG PO SCH ×3 (07:35→17:08)
[2018-09-17] MEDS: Ferrous Sulfate 325 MG Tab PO SCH ×3 (07:35→17:08)
[2018-09-17] MEDS: Multivitamin Tab PO SCH (07:36)
[2018-09-17] MEDS: Finasteride 5 MG Tab PO SCH (19:05)
[2018-09-17] MEDS: Pantoprazole 40 MG Tab.CR PO SCH (19:06)
[2018-09-18] MEDS: Lactobacillus Rhamnosus GG (Probiotic) Cap PO SCH ×2 (08:00→17:11)
[2018-09-18] MEDS: Carvedilol 25 MG Tab PO SCH ×2 (08:00→17:10)
[2018-09-18] MEDS: Aspirin 81 MG Tab.Chew PO SCH (08:00)
[2018-09-18] MEDS: Bumetanide 1 MG Tab PO SCH (08:00)
[2018-09-18] MEDS: LOSARTAN 25 MG PO SCH (08:01)
[2018-09-18] MEDS: Ferrous Sulfate 325 MG Tab PO SCH ×3 (08:01→17:11)
[2018-09-18] MEDS: Tamsulosin 0.4 MG Cap.ER PO SCH (08:01)
[2018-09-18] MEDS: Magnesium Oxide 400 MG Tab PO SCH (08:01)
[2018-09-18] MEDS: HYDRALAZINE 100 MG PO SCH ×3 (08:01→17:11)
[2018-09-18] MEDS: Albuterol/Ipratropium 3.0-0.5 MG/3 ML Neb Soln NEB SCH ×2 (08:01→18:59)
[2018-09-18] MEDS: Multivitamin Tab PO SCH (08:02)
[2018-09-18] MEDS: amLODIPine 5 MG Tab PO SCH (08:02)
[2018-09-18] MEDS: Finasteride 5 MG Tab PO SCH (18:59)
[2018-09-18] MEDS: Pantoprazole 40 MG Tab.CR PO SCH (18:59)
[2018-09-19] MEDS: Aspirin 81 MG Tab.Chew PO SCH (08:02)
[2018-09-19] MEDS: Carvedilol 25 MG Tab PO SCH ×2 (08:02→17:13)
[2018-09-19] MEDS: Tamsulosin 0.4 MG Cap.ER PO SCH (08:03)
[2018-09-19] MEDS: Albuterol/Ipratropium 3.0-0.5 MG/3 ML Neb Soln NEB SCH ×2 (08:03→19:20)
[2018-09-19] MEDS: Lactobacillus Rhamnosus GG (Probiotic) Cap PO SCH ×2 (08:03→17:13)
[2018-09-19] MEDS: Ferrous Sulfate 325 MG Tab PO SCH ×3 (08:03→17:13)
[2018-09-19] MEDS: Bumetanide 1 MG Tab PO SCH (08:03)
[2018-09-19] MEDS: HYDRALAZINE 100 MG PO SCH ×3 (08:04→17:13)
[2018-09-19] MEDS: LOSARTAN 25 MG PO SCH (08:04)
[2018-09-19] MEDS: Magnesium Oxide 400 MG Tab PO SCH (08:04)
[2018-09-19] MEDS: Multivitamin Tab PO SCH (08:04)
[2018-09-19] MEDS: amLODIPine 5 MG Tab PO SCH (08:04)
[2018-09-19] MEDS: Pantoprazole 40 MG Tab.CR PO SCH (19:22)
[2018-09-19] MEDS: Finasteride 5 MG Tab PO SCH (19:22)
[2018-09-20] MEDS: Bumetanide 1 MG Tab PO SCH (07:57)
[2018-09-20] MEDS: Tamsulosin 0.4 MG Cap.ER PO SCH (07:57)
[2018-09-20] MEDS: Carvedilol 25 MG Tab PO SCH ×2 (07:57→17:12)
[2018-09-20] MEDS: amLODIPine 5 MG Tab PO SCH (07:58)
[2018-09-20] MEDS: HYDRALAZINE 100 MG PO SCH ×3 (07:58→17:12)
[2018-09-20] MEDS: LOSARTAN 25 MG PO SCH (07:58)
[2018-09-20] MEDS: Aspirin 81 MG Tab.Chew PO SCH (07:58)
[2018-09-20] MEDS: Ferrous Sulfate 325 MG Tab PO SCH ×3 (07:59→17:13)
[2018-09-20] MEDS: Albuterol/Ipratropium 3.0-0.5 MG/3 ML Neb Soln NEB SCH ×2 (07:59→19:46)
[2018-09-20] MEDS: Lactobacillus Rhamnosus GG (Probiotic) Cap PO SCH ×2 (07:59→17:13)
[2018-09-20] MEDS: Multivitamin Tab PO SCH (08:00)
[2018-09-20] MEDS: Magnesium Oxide 400 MG Tab PO SCH (08:00)
[2018-09-20] MEDS ORDERED: Cephalexin 250 MG Cap PO SCH (12:00)
[2018-09-20] MEDS: CEPHALEXIN 500MG PO SCH (17:12)
[2018-09-20] MEDS: Finasteride 5 MG Tab PO SCH (19:46)
[2018-09-20] MEDS: Pantoprazole 40 MG Tab.CR PO SCH (19:47)
[2018-09-21] MEDS: CEPHALEXIN 500MG PO SCH ×3 (07:57→17:20)
[2018-09-21] MEDS: HYDRALAZINE 100 MG PO SCH ×3 (07:58→17:20)
[2018-09-21] MEDS: Tamsulosin 0.4 MG Cap.ER PO SCH (07:58)
[2018-09-21] MEDS: LOSARTAN 25 MG PO SCH (07:58)
[2018-09-21] MEDS: Carvedilol 25 MG Tab PO SCH ×2 (07:58→17:20)
[2018-09-21] MEDS: amLODIPine 5 MG Tab PO SCH (07:58)
[2018-09-21] MEDS: Bumetanide 1 MG Tab PO SCH (07:58)
[2018-09-21] MEDS: Lactobacillus Rhamnosus GG (Probiotic) Cap PO SCH ×2 (07:59→17:21)
[2018-09-21] MEDS: Ferrous Sulfate 325 MG Tab PO SCH ×3 (07:59→17:21)
[2018-09-21] MEDS: Aspirin 81 MG Tab.Chew PO SCH (07:59)
[2018-09-21] MEDS: Magnesium Oxide 400 MG Tab PO SCH (07:59)
[2018-09-21] MEDS: Multivitamin Tab PO SCH (08:00)
[2018-09-21] MEDS: Albuterol/Ipratropium 3.0-0.5 MG/3 ML Neb Soln NEB SCH ×2 (08:00→19:38)
[2018-09-21] MEDS: Finasteride 5 MG Tab PO SCH (19:38)
[2018-09-21] MEDS: Pantoprazole 40 MG Tab.CR PO SCH (19:38)
[2018-09-22] MEDS: Carvedilol 25 MG Tab PO SCH ×2 (07:49→17:32)
[2018-09-22] MEDS: Bumetanide 1 MG Tab PO SCH (07:49)
[2018-09-22] MEDS: Aspirin 81 MG Tab.Chew PO SCH (07:49)
[2018-09-22] MEDS: Albuterol/Ipratropium 3.0-0.5 MG/3 ML Neb Soln NEB SCH ×2 (07:50→19:08)
[2018-09-22] MEDS: Lactobacillus Rhamnosus GG (Probiotic) Cap PO SCH ×2 (07:50→17:36)
[2018-09-22] MEDS: Ferrous Sulfate 325 MG Tab PO SCH ×3 (07:51→17:37)
[2018-09-22] MEDS: Tamsulosin 0.4 MG Cap.ER PO SCH (07:51)
[2018-09-22] MEDS: LOSARTAN 25 MG PO SCH (07:52)
[2018-09-22] MEDS: amLODIPine 5 MG Tab PO SCH (07:52)
[2018-09-22] MEDS: Magnesium Oxide 400 MG Tab PO SCH (07:52)
[2018-09-22] MEDS: HYDRALAZINE 100 MG PO SCH ×3 (07:52→17:37)
[2018-09-22] MEDS: CEPHALEXIN 500MG PO SCH ×3 (07:52→17:37)
[2018-09-22] MEDS: Multivitamin Tab PO SCH (07:53)
[2018-09-22] MEDS: Finasteride 5 MG Tab PO SCH (19:08)
[2018-09-22] MEDS: Pantoprazole 40 MG Tab.CR PO SCH (19:09)
[2018-09-23] MEDS: Aspirin 81 MG Tab.Chew PO SCH (07:27)
[2018-09-23] MEDS: Carvedilol 25 MG Tab PO SCH ×2 (07:27→17:19)
[2018-09-23] MEDS: Bumetanide 1 MG Tab PO SCH (07:27)
[2018-09-23] MEDS: Albuterol/Ipratropium 3.0-0.5 MG/3 ML Neb Soln NEB SCH ×2 (07:27→19:13)
[2018-09-23] MEDS: Lactobacillus Rhamnosus GG (Probiotic) Cap PO SCH ×2 (07:28→17:20)
[2018-09-23] MEDS: Ferrous Sulfate 325 MG Tab PO SCH ×3 (07:28→17:21)
[2018-09-23] MEDS: HYDRALAZINE 100 MG PO SCH ×3 (07:28→17:21)
[2018-09-23] MEDS: Magnesium Oxide 400 MG Tab PO SCH (07:28)
[2018-09-23] MEDS: CEPHALEXIN 500MG PO SCH ×3 (07:28→17:21)
[2018-09-23] MEDS: Tamsulosin 0.4 MG Cap.ER PO SCH (07:28)
[2018-09-23] MEDS: amLODIPine 5 MG Tab PO SCH (07:29)
[2018-09-23] MEDS: Multivitamin Tab PO SCH (07:29)
[2018-09-23] MEDS: LOSARTAN 25 MG PO SCH (07:29)
[2018-09-23] MEDS: Finasteride 5 MG Tab PO SCH (19:13)
[2018-09-23] MEDS: Pantoprazole 40 MG Tab.CR PO SCH (19:13)
[2018-09-24] MEDS: Carvedilol 25 MG Tab PO SCH ×2 (07:45→17:12)
[2018-09-24] MEDS: Albuterol/Ipratropium 3.0-0.5 MG/3 ML Neb Soln NEB SCH ×2 (07:45→19:01)
[2018-09-24] MEDS: Aspirin 81 MG Tab.Chew PO SCH (07:45)
[2018-09-24] MEDS: Bumetanide 1 MG Tab PO SCH (07:46)
[2018-09-24] MEDS: Ferrous Sulfate 325 MG Tab PO SCH ×3 (07:46→17:12)
[2018-09-24] MEDS: Magnesium Oxide 400 MG Tab PO SCH (07:46)
[2018-09-24] MEDS: Lactobacillus Rhamnosus GG (Probiotic) Cap PO SCH ×2 (07:46→17:12)
[2018-09-24] MEDS: Tamsulosin 0.4 MG Cap.ER PO SCH (07:46)
[2018-09-24] MEDS: Multivitamin Tab PO SCH (07:47)
[2018-09-24] MEDS: LOSARTAN 25 MG PO SCH (07:47)
[2018-09-24] MEDS: HYDRALAZINE 100 MG PO SCH ×3 (07:47→17:13)
[2018-09-24] MEDS: amLODIPine 5 MG Tab PO SCH (07:47)
[2018-09-24] MEDS: Pantoprazole 40 MG Tab.CR PO SCH (19:02)
[2018-09-24] MEDS: Finasteride 5 MG Tab PO SCH (19:02)
[2018-09-25] MEDS: Aspirin 81 MG Tab.Chew PO SCH (07:43)
[2018-09-25] MEDS: Carvedilol 25 MG Tab PO SCH ×2 (07:44→17:20)
[2018-09-25] MEDS: Bumetanide 1 MG Tab PO SCH (07:44)
[2018-09-25] MEDS: Lactobacillus Rhamnosus GG (Probiotic) Cap PO SCH ×2 (07:44→17:21)
[2018-09-25] MEDS: Tamsulosin 0.4 MG Cap.ER PO SCH (07:45)
[2018-09-25] MEDS: Ferrous Sulfate 325 MG Tab PO SCH ×3 (07:45→17:21)
[2018-09-25] MEDS: Albuterol/Ipratropium 3.0-0.5 MG/3 ML Neb Soln NEB SCH ×2 (07:45→19:07)
[2018-09-25] MEDS: Magnesium Oxide 400 MG Tab PO SCH (07:46)
[2018-09-25] MEDS: amLODIPine 5 MG Tab PO SCH (07:46)
[2018-09-25] MEDS: LOSARTAN 25 MG PO SCH (07:46)
[2018-09-25] MEDS: HYDRALAZINE 100 MG PO SCH ×3 (07:46→17:22)
[2018-09-25] MEDS: Multivitamin Tab PO SCH (07:47)
[2018-09-25] MEDS: Pantoprazole 40 MG Tab.CR PO SCH (19:08)
[2018-09-25] MEDS: Finasteride 5 MG Tab PO SCH (19:08)
[2018-09-26] MEDS: Tamsulosin 0.4 MG Cap.ER PO SCH (08:46)
[2018-09-26] MEDS: HYDRALAZINE 100 MG PO SCH ×3 (08:46→17:19)
[2018-09-26] MEDS: Bumetanide 1 MG Tab PO SCH (08:46)
[2018-09-26] MEDS: Losartan 50 MG Tab PO SCH (08:46)
[2018-09-26] MEDS: Carvedilol 25 MG Tab PO SCH ×2 (08:46→17:18)
[2018-09-26] MEDS: amLODIPine 5 MG Tab PO SCH (08:47)
[2018-09-26] MEDS: Lactobacillus Rhamnosus GG (Probiotic) Cap PO SCH ×2 (08:48→17:19)
[2018-09-26] MEDS: Aspirin 81 MG Tab.Chew PO SCH (08:48)
[2018-09-26] MEDS: Ferrous Sulfate 325 MG Tab PO SCH ×3 (08:49→17:19)
[2018-09-26] MEDS: Magnesium Oxide 400 MG Tab PO SCH (08:49)
[2018-09-26] MEDS: Albuterol/Ipratropium 3.0-0.5 MG/3 ML Neb Soln NEB SCH ×2 (08:49→22:52)
[2018-09-26] MEDS: Multivitamin Tab PO SCH (08:50)
[2018-09-26] MEDS: Finasteride 5 MG Tab PO SCH (22:52)
[2018-09-26] MEDS: Pantoprazole 40 MG Tab.CR PO SCH (22:53)
[2018-09-27] MEDS: BUMETANIDE 2 MG PO SCH (08:18)
[2018-09-27] MEDS: Tamsulosin 0.4 MG Cap.ER PO SCH (08:18)
[2018-09-27] MEDS: Losartan 50 MG Tab PO SCH (08:19)
[2018-09-27] MEDS: Carvedilol 25 MG Tab PO SCH ×2 (08:19→17:22)
[2018-09-27] MEDS: HYDRALAZINE 100 MG PO SCH ×3 (08:19→17:22)
[2018-09-27] MEDS: amLODIPine 5 MG Tab PO SCH (08:20)
[2018-09-27] MEDS: Ferrous Sulfate 325 MG Tab PO SCH ×3 (08:21→17:21)
[2018-09-27] MEDS: Multivitamin Tab PO SCH (08:21)
[2018-09-27] MEDS: Albuterol/Ipratropium 3.0-0.5 MG/3 ML Neb Soln NEB SCH ×2 (08:21→19:42)
[2018-09-27] MEDS: Magnesium Oxide 400 MG Tab PO SCH (08:21)
[2018-09-27] MEDS: Lactobacillus Rhamnosus GG (Probiotic) Cap PO SCH ×2 (08:21→17:21)
[2018-09-27] MEDS: Finasteride 5 MG Tab PO SCH (19:41)
[2018-09-27] MEDS: Pantoprazole 40 MG Tab.CR PO SCH (19:41)
[2018-09-28] MEDS: Carvedilol 25 MG Tab PO SCH ×2 (08:29→17:37)
[2018-09-28] MEDS: Losartan 50 MG Tab PO SCH (08:30)
[2018-09-28] MEDS: Lactobacillus Rhamnosus GG (Probiotic) Cap PO SCH ×2 (08:31→17:27)
[2018-09-28] MEDS: Albuterol/Ipratropium 3.0-0.5 MG/3 ML Neb Soln NEB SCH ×2 (08:31→19:41)
[2018-09-28] MEDS: BUMETANIDE 2 MG PO SCH (08:32)
[2018-09-28] MEDS: Magnesium Oxide 400 MG Tab PO SCH (08:32)
[2018-09-28] MEDS: Ferrous Sulfate 325 MG Tab PO SCH ×3 (08:32→17:27)
[2018-09-28] MEDS: HYDRALAZINE 100 MG PO SCH ×3 (08:32→17:26)
[2018-09-28] MEDS: Tamsulosin 0.4 MG Cap.ER PO SCH (08:32)
[2018-09-28] MEDS: amLODIPine 5 MG Tab PO SCH (08:33)
[2018-09-28] MEDS: Multivitamin Tab PO SCH (08:33)
[2018-09-28] MEDS: Finasteride 5 MG Tab PO SCH (19:41)
[2018-09-28] MEDS: Pantoprazole 40 MG Tab.CR PO SCH (19:41)
[2018-09-29] MEDS: Carvedilol 25 MG Tab PO SCH ×2 (07:58→17:08)
[2018-09-29] MEDS: Albuterol/Ipratropium 3.0-0.5 MG/3 ML Neb Soln NEB SCH ×2 (07:59→19:22)
[2018-09-29] MEDS: Lactobacillus Rhamnosus GG (Probiotic) Cap PO SCH ×2 (07:59→17:07)
[2018-09-29] MEDS: Losartan 50 MG Tab PO SCH (07:59)
[2018-09-29] MEDS: Ferrous Sulfate 325 MG Tab PO SCH ×3 (08:00→17:08)
[2018-09-29] MEDS: Tamsulosin 0.4 MG Cap.ER PO SCH (08:00)
[2018-09-29] MEDS: Magnesium Oxide 400 MG Tab PO SCH (08:00)
[2018-09-29] MEDS: HYDRALAZINE 100 MG PO SCH ×3 (08:01→17:08)
[2018-09-29] MEDS: amLODIPine 5 MG Tab PO SCH (08:01)
[2018-09-29] MEDS: Multivitamin Tab PO SCH (08:01)
[2018-09-29] MEDS: BUMETANIDE 2 MG PO SCH (08:01)
[2018-09-29] MEDS: Acetaminophen 325 MG Tab PO PRN (17:07)
[2018-09-29] MEDS: Pantoprazole 40 MG Tab.CR PO SCH (19:21)
[2018-09-29] MEDS: Finasteride 5 MG Tab PO SCH (19:21)
[2018-09-30] MEDS: amLODIPine 5 MG Tab PO SCH (08:15)
[2018-09-30] MEDS: BUMETANIDE 2 MG PO SCH (08:16)
[2018-09-30] MEDS: Carvedilol 25 MG Tab PO SCH ×2 (08:16→17:54)
[2018-09-30] MEDS: HYDRALAZINE 100 MG PO SCH ×3 (08:16→17:54)
[2018-09-30] MEDS: Losartan 50 MG Tab PO SCH (08:16)
[2018-09-30] MEDS: Tamsulosin 0.4 MG Cap.ER PO SCH (08:16)
[2018-09-30] MEDS: Lactobacillus Rhamnosus GG (Probiotic) Cap PO SCH ×2 (08:17→17:54)
[2018-09-30] MEDS: Ferrous Sulfate 325 MG Tab PO SCH ×3 (08:18→17:55)
[2018-09-30] MEDS: Albuterol/Ipratropium 3.0-0.5 MG/3 ML Neb Soln NEB SCH ×2 (08:18→19:41)
[2018-09-30] MEDS: Magnesium Oxide 400 MG Tab PO SCH (08:19)
[2018-09-30] MEDS: Multivitamin Tab PO SCH (08:20)
[2018-09-30] MEDS: Pantoprazole 40 MG Tab.CR PO SCH (19:41)
[2018-09-30] MEDS: Finasteride 5 MG Tab PO SCH (19:41)
[2018-10-01] MEDS: Losartan 50 MG Tab PO SCH (08:09)
[2018-10-01] MEDS: Albuterol/Ipratropium 3.0-0.5 MG/3 ML Neb Soln NEB SCH ×2 (08:09→19:12)
[2018-10-01] MEDS: Carvedilol 25 MG Tab PO SCH ×2 (08:09→17:21)
[2018-10-01] MEDS: Lactobacillus Rhamnosus GG (Probiotic) Cap PO SCH ×2 (08:09→17:22)
[2018-10-01] MEDS: Ferrous Sulfate 325 MG Tab PO SCH ×3 (08:10→17:22)
[2018-10-01] MEDS: Magnesium Oxide 400 MG Tab PO SCH (08:10)
[2018-10-01] MEDS: BUMETANIDE 2 MG PO SCH (08:10)
[2018-10-01] MEDS: HYDRALAZINE 100 MG PO SCH ×3 (08:10→17:22)
[2018-10-01] MEDS: Tamsulosin 0.4 MG Cap.ER PO SCH (08:10)
[2018-10-01] MEDS: Multivitamin Tab PO SCH (08:11)
[2018-10-01] MEDS: amLODIPine 5 MG Tab PO SCH (08:11)
--- NOTE | 2018-10-01 11:24 | PCM.PN ---
- General Info Date of Service: 10/01/18 Admission Dx/Problem (Free Text): Patient is being seen today for a pre-op physical for a cystoscope that will be completed on 10-02-18. He has no concerns about the procedure. He feels like he is doing well and has no physical concerns today. He denies any headache, change to vision, nasal congestion/drainage, sore throat, cough, shortness of breath, heart palpitations, nausea or vomiting. he has a history of high blood pressure which is under control with medication. he has a history of diabetes. However, he is currently not on any diabetic medication. BS readings are stable at this time. patient has a history of chronic kidney disease. his last lab results showed improved kidney function from 1 week ago. He is working with PT/ OT to help with strengthening and ADLs, which has been going good. he has not been on medications that could thin his blood for the last 7 days. He can take his BP medication in the AM prior to procedure. Other medications can be held prior to surgery. Based on physical assessment, patient is cleared for surgery. Functional Status: Reports: Pain Controlled, Tolerating Diet, Ambulating, Urinating - Review of Systems General: Reports: No Symptoms HEENT: Reports: No Symptoms Pulmonary: Reports: No Symptoms Cardiovascular: Reports: No Symptoms Gastrointestinal: Reports: No Symptoms Genitourinary: Reports: No Symptoms Musculoskeletal: Reports: No Symptoms Skin: Reports: No Symptoms Neurological: Reports: No Symptoms Psychiatric: Reports: No Symptoms - Patient Data Vitals - Most Recent: Last Vital Signs Temp 98.1 F 10/01/18 08:00 Pulse 72 10/01/18 08:09 Resp 18 10/01/18 08:00 BP 163/67 H 10/01/18 08:11 Pulse Ox 96 10/01/18 08:00 Weight - Most Recent: 257 lb I&O - Last 24 Hours: Intake & Output 09/30/18 10/01/18 10/01/18 22:59 06:59 14:59 Intake Total 640 180 480 Output Total 500 400 Balance 140 180 80 Med Orders - Current: Current Medications Acetaminophen (Tylenol) 650 mg PO Q4H PRN PRN Reason: Pain/Fever Last Admin: 09/29/18 17:07 Dose: 650 mg Albuterol/Ipratropium (Duoneb 3.0-0.5 Mg/3 Ml) 3 ml NEB Q4HRRT PRN PRN Reason: Cough Last Admin: 08/22/18 17:28 Dose: 3 ml Albuterol/Ipratropium (Duoneb 3.0-0.5 Mg/3 Ml) 3 ml NEB BIDRT [facility] Last Admin: 10/01/18 08:09 Dose: 3 ml Amlodipine Besylate (Norvasc) 5 mg PO DAILY [facility] Last Admin: 10/01/18 08:11 Dose: 5 mg Aspirin (Aspirin) 81 mg PO DAILY [facility] Last Admin: 09/26/18 08:48 Dose: 81 mg Carvedilol (Coreg) 25 mg PO BIDMEALS [facility] Last Admin: 10/01/18 08:09 Dose: 25 mg Ferrous Sulfate (Ferrous Sulfate) 325 mg PO TIDMEALS [facility] Last Admin: 10/01/18 08:10 Dose: 325 mg Finasteride (Proscar) 5 mg PO DAILY@1999 [facility] Last Admin: 09/30/18 19:41 Dose: 5 mg Lactobacillus Rhamnosus (Culturelle) 1 cap PO BID [facility] Last Admin: 10/01/18 08:09 Dose: 1 cap Loperamide HCl (Imodium Ad) 2 mg PO ASDIRECTED PRN PRN Reason: Diarrhea Last Admin: 08/01/18 20:14 Dose: 2 mg Losartan Potassium (Cozaar) 50 mg PO DAILY [facility] Last Admin: 10/01/18 08:09 Dose: 50 mg Magnesium Oxide (Magnesium Oxide) 400 mg PO DAILY [facility] Last Admin: 10/01/18 08:10 Dose: 400 mg Multivitamins/Minerals/Vitamin C (Tab-A-Mayte) 1 tab PO DAILY [facility] Last Admin: 10/01/18 08:11 Dose: 1 tab Hydralazine 100mg (Tablets) 1 each PO TID [facility] Last Admin: 10/01/18 08:10 Dose: 1 each Bumetanide 2mg Tabs 1 each PO DAILY [facility] Last Admin: 10/01/18 08:10 Dose: 1 each Pantoprazole Sodium (Protonix) 40 mg PO BEDTIME [facility] Last Admin: 09/30/18 19:41 Dose: 40 mg Promethazine HCl (Phenergan) 25 mg PO Q6H PRN PRN Reason: Nausea/Vomiting Last Admin: 08/21/18 10:06 Dose: 25 mg Tamsulosin HCl (Flomax) 0.4 mg PO DAILY [facility] Last Admin: 10/01/18 08:10 Dose: 0.4 mg Discontinued Medications Albuterol/Ipratropium (Duoneb 3.0-0.5 Mg/3 Ml) 3 ml NEB QIDRT [facility] Last Admin: 09/02/18 07:38 Dose: 3 ml Betamethasone/Clotrimazole (Lotrisone) 1 gm TOP Q12H [facility] Stop: 08/14/18 08:00 Last Admin: 08/14/18 07:25 Dose: 1 applic Bumetanide (Bumex) 1 mg PO BID@08,16 [facility] Last Admin: 08/20/18 08:07 Dose: 1 mg Bumetanide (Bumex) 1 mg PO DAILY [facility] Last Admin: 09/26/18 08:46 Dose: 1 mg Cephalexin (Keflex) 500 mg PO TID [facility] Last Admin: 09/20/18 13:53 Dose: 500 mg Ciprofloxacin (Ciprofloxacin Hcl) 250 mg PO Q12H [facility] Stop: 09/08/18 08:01 Last Admin: 07/31/18 08:20 Dose: 250 mg Clindamycin HCl (Cleocin) 450 mg PO TID [facility] Stop: 09/08/18 08:01 Last Admin: 07/31/18 11:26 Dose: 450 mg Clindamycin HCl (Cleocin) 150 mg PO TID [facility] Stop: 09/08/18 08:01 Last Admin: 08/30/18 08:53 Dose: 150 mg Enoxaparin Sodium (Lovenox) 30 mg SUBCUT DAILY@18 [facility] Stop: 08/19/18 18:00 Last Admin: 08/19/18 17:11 Dose: 30 mg Finasteride (Proscar) 5 mg PO DAILY [facility] Last Admin: 08/01/18 08:11 Dose: 5 mg Fluconazole (Diflucan) 400 mg PO DAILY [facility] Stop: 08/18/18 08:01 Last Admin: 08/18/18 07:45 Dose: 400 mg Hydralazine HCl (Apresoline) 100 mg PO TID [facility] Last Admin: 07/31/18 11:22 Dose: 100 mg Loperamide HCl (Imodium Ad) 4 mg PO ONETIME ONE Stop: 07/20/18 13:26 Last Admin: 07/20/18 15:51 Dose: 4 mg Loperamide HCl (Imodium Ad) Confirm Administered Dose 4 mg .ROUTE .STK-MED ONE Stop: 07/20/18 15:51 Last Admin: 07/20/18 16:02 Dose: Not Given Losartan Potassium (Cozaar) 25 mg PO DAILY [facility] Last Admin: 07/31/18 08:22 Dose: 25 mg Ciprofloxacin 250mg (Tablets) 1 each PO Q12H [facility] Stop: 09/08/18 08:01 Last Admin: 08/30/18 08:53 Dose: 1 each Clindamycin 300mg (Caps) 1 each PO TID [facility] Stop: 09/08/18 08:01 Last Admin: 08/30/18 08:53 Dose: 1 each Losartan 25mg (Tablets) 1 each PO DAILY [facility] Last Admin: 09/25/18 07:46 Dose: 1 each Cephalexin 500mg (Capsule) 1 each PO Q12HR [facility] Stop: 09/13/18 08:00 Last Admin: 09/13/18 07:48 Dose: 1 each Cephalexin 500mg 0 each PO TID [facility] Last Admin: 09/23/18 17:21 Dose: 1 each Nystatin (Nystop) 0 gm TOP TID [facility] Last Admin: 07/31/18 11:27 Dose: 1 applic Pantoprazole Sodium (Protonix) 40 mg PO BID [facility] Last Admin: 07/31/18 08:27 Dose: 40 mg Torsemide (Demadex) 20 mg PO DAILY [facility] Last Admin: 07/30/18 12:21 Dose: Not Given - Exam General: Alert, Oriented, Cooperative HEENT: Pupils Equal, Pupils Reactive Neck: Supple Lungs: Clear to Auscultation, Normal Respiratory Effort Cardiovascular: Regular Rate, Regular Rhythm, No Murmurs GI/Abdominal Exam: Normal Bowel Sounds, Soft, Non-Tender (Male) Exam: Deferred Back Exam: Normal Inspection Extremities: Normal Inspection Skin: Warm, Dry Wound/Incisions: Healing Well Psy/Mental Status: Alert, Normal Affect, Normal Mood - Problem List & Annotations (1) Urinary retention SNOMED Code(s): 473249132 Code(s): R33.9 - RETENTION OF URINE, UNSPECIFIED Status: Acute Current Visit: Yes Annotation/Comment:: Patient has difficulty urinating after rocha catheter was removed. he will have cystoscope per Dr. Ang 10-02-18. (2) Acute renal failure SNOMED Code(s): 57646391 Code(s): N17.9 - ACUTE KIDNEY FAILURE, UNSPECIFIED Status: Acute Current Visit: No Qualifiers: Acute renal failure type: unspecified Qualified Code(s): N17.9 - Acute kidney failure, unspecified Annotation/Comment:: We will monitor creatinine and BUN level for decline, maintain fluid level (3) Osteomyelitis SNOMED Code(s): 29453629 Code(s): M86.9 - OSTEOMYELITIS, UNSPECIFIED Status: Acute Priority: High Current Visit: No Onset Date: ~06/07/18 Qualifiers: Osteomyelitis type: other chronic Osteomyelitis location: foot Laterality : left Qualified Code(s): M86.672 - Other chronic osteomyelitis, left ankle and foot Annotation/Comment:: Patient is not on antibiotic therapy and skin flap is healing well. He is monitered by ID in [facility] and podiatry, Dr. Saavedra at [facility]. - Problem List Review Problem List Initiated/Reviewed/Updated: Yes - My Orders Last 24 Hours: My Active Orders 10/01/18 10:53 Communication Order [RC] DAILY 10/09/18 05:11 CMP [COMPREHENSIVE METABOLIC PN,CMP] [CHEM] Routine
[2018-10-01] MEDS: Finasteride 5 MG Tab PO SCH (19:12)
[2018-10-01] MEDS: Pantoprazole 40 MG Tab.CR PO SCH (19:12)
[2018-10-02] MEDS: Albuterol/Ipratropium 3.0-0.5 MG/3 ML Neb Soln NEB SCH ×2 (07:44→19:24)
[2018-10-02] MEDS: Lactobacillus Rhamnosus GG (Probiotic) Cap PO SCH ×2 (07:44→17:08)
[2018-10-02] MEDS: Ferrous Sulfate 325 MG Tab PO SCH ×3 (07:45→17:09)
[2018-10-02] MEDS: BUMETANIDE 2 MG PO SCH (07:45)
[2018-10-02] MEDS: Magnesium Oxide 400 MG Tab PO SCH (07:45)
[2018-10-02] MEDS: Tamsulosin 0.4 MG Cap.ER PO SCH (07:45)
[2018-10-02] MEDS: Multivitamin Tab PO SCH (07:46)
[2018-10-02] MEDS: Carvedilol 25 MG Tab PO SCH ×2 (07:58→17:08)
[2018-10-02] MEDS: Losartan 50 MG Tab PO SCH (07:58)
[2018-10-02] MEDS: amLODIPine 5 MG Tab PO SCH (07:58)
[2018-10-02] MEDS: HYDRALAZINE 100 MG PO SCH ×3 (07:58→17:08)
[2018-10-02] MEDS: Pantoprazole 40 MG Tab.CR PO SCH (19:25)
[2018-10-02] MEDS: Finasteride 5 MG Tab PO SCH (19:25)
[2018-10-03] MEDS: amLODIPine 5 MG Tab PO SCH (08:05)
[2018-10-03] MEDS: Losartan 50 MG Tab PO SCH (08:06)
[2018-10-03] MEDS: BUMETANIDE 2 MG PO SCH (08:06)
[2018-10-03] MEDS: Carvedilol 25 MG Tab PO SCH ×2 (08:06→17:05)
[2018-10-03] MEDS: Tamsulosin 0.4 MG Cap.ER PO SCH (08:06)
[2018-10-03] MEDS: HYDRALAZINE 100 MG PO SCH ×3 (08:06→17:05)
[2018-10-03] MEDS: Magnesium Oxide 400 MG Tab PO SCH (08:07)
[2018-10-03] MEDS: Ferrous Sulfate 325 MG Tab PO SCH ×3 (08:07→17:06)
[2018-10-03] MEDS: Aspirin 81 MG Tab.Chew PO SCH (08:07)
[2018-10-03] MEDS: Lactobacillus Rhamnosus GG (Probiotic) Cap PO SCH ×2 (08:07→17:06)
[2018-10-03] MEDS: Multivitamin Tab PO SCH (08:08)
[2018-10-03] MEDS: Albuterol/Ipratropium 3.0-0.5 MG/3 ML Neb Soln NEB SCH ×2 (08:08→19:33)
[2018-10-03] MEDS: Finasteride 5 MG Tab PO SCH (19:34)
[2018-10-03] MEDS: Pantoprazole 40 MG Tab.CR PO SCH (19:34)
[2018-10-04] MEDS: Carvedilol 25 MG Tab PO SCH ×2 (08:17→17:37)
[2018-10-04] MEDS: Aspirin 81 MG Tab.Chew PO SCH (08:20)
[2018-10-04] MEDS: Lactobacillus Rhamnosus GG (Probiotic) Cap PO SCH ×2 (08:20→17:37)
[2018-10-04] MEDS: Losartan 50 MG Tab PO SCH (08:20)
[2018-10-04] MEDS: BUMETANIDE 2 MG PO SCH (08:21)
[2018-10-04] MEDS: Magnesium Oxide 400 MG Tab PO SCH (08:21)
[2018-10-04] MEDS: Ferrous Sulfate 325 MG Tab PO SCH ×3 (08:21→17:37)
[2018-10-04] MEDS: Tamsulosin 0.4 MG Cap.ER PO SCH (08:21)
[2018-10-04] MEDS: Albuterol/Ipratropium 3.0-0.5 MG/3 ML Neb Soln NEB SCH ×2 (08:21→19:22)
[2018-10-04] MEDS: HYDRALAZINE 100 MG PO SCH ×3 (08:22→17:38)
[2018-10-04] MEDS: amLODIPine 5 MG Tab PO SCH (08:22)
[2018-10-04] MEDS: Multivitamin Tab PO SCH (08:22)
[2018-10-04] MEDS: Finasteride 5 MG Tab PO SCH (19:22)
[2018-10-04] MEDS: Pantoprazole 40 MG Tab.CR PO SCH (19:23)
[2018-10-05] MEDS: Losartan 50 MG Tab PO SCH (07:49)
[2018-10-05] MEDS: Carvedilol 25 MG Tab PO SCH ×2 (07:49→17:17)
[2018-10-05] MEDS: Aspirin 81 MG Tab.Chew PO SCH (07:49)
[2018-10-05] MEDS: Magnesium Oxide 400 MG Tab PO SCH (07:50)
[2018-10-05] MEDS: Albuterol/Ipratropium 3.0-0.5 MG/3 ML Neb Soln NEB SCH ×2 (07:50→19:28)
[2018-10-05] MEDS: Tamsulosin 0.4 MG Cap.ER PO SCH (07:50)
[2018-10-05] MEDS: Ferrous Sulfate 325 MG Tab PO SCH ×3 (07:50→17:18)
[2018-10-05] MEDS: Lactobacillus Rhamnosus GG (Probiotic) Cap PO SCH ×2 (07:50→17:17)
[2018-10-05] MEDS: amLODIPine 5 MG Tab PO SCH (07:51)
[2018-10-05] MEDS: BUMETANIDE 2 MG PO SCH (07:51)
[2018-10-05] MEDS: Multivitamin Tab PO SCH (07:51)
[2018-10-05] MEDS: HYDRALAZINE 100 MG PO SCH ×3 (07:51→17:18)
[2018-10-05] MEDS: Finasteride 5 MG Tab PO SCH (19:28)
[2018-10-05] MEDS: Pantoprazole 40 MG Tab.CR PO SCH (19:28)
[2018-10-06] MEDS: Carvedilol 25 MG Tab PO SCH ×2 (08:14→18:03)
[2018-10-06] MEDS: Aspirin 81 MG Tab.Chew PO SCH (08:15)
[2018-10-06] MEDS: Losartan 50 MG Tab PO SCH (08:15)
[2018-10-06] MEDS: Tamsulosin 0.4 MG Cap.ER PO SCH (08:16)
[2018-10-06] MEDS: amLODIPine 5 MG Tab PO SCH (08:17)
[2018-10-06] MEDS: HYDRALAZINE 100 MG PO SCH ×3 (08:17→18:02)
[2018-10-06] MEDS: Magnesium Oxide 400 MG Tab PO SCH (08:17)
[2018-10-06] MEDS: BUMETANIDE 2 MG PO SCH (08:17)
[2018-10-06] MEDS: Multivitamin Tab PO SCH (08:18)
[2018-10-06] MEDS: Ferrous Sulfate 325 MG Tab PO SCH ×3 (08:19→18:02)
[2018-10-06] MEDS: Albuterol/Ipratropium 3.0-0.5 MG/3 ML Neb Soln NEB PRN (08:20)
[2018-10-06] MEDS: Lactobacillus Rhamnosus GG (Probiotic) Cap PO SCH ×2 (08:20→18:02)
[2018-10-06] MEDS: Albuterol/Ipratropium 3.0-0.5 MG/3 ML Neb Soln NEB SCH ×2 (08:24→19:15)
[2018-10-06] MEDS: Pantoprazole 40 MG Tab.CR PO SCH (19:15)
[2018-10-06] MEDS: Finasteride 5 MG Tab PO SCH (19:16)
[2018-10-07] MEDS: Losartan 50 MG Tab PO SCH (07:43)
[2018-10-07] MEDS: BUMETANIDE 2 MG PO SCH (07:43)
[2018-10-07] MEDS: Tamsulosin 0.4 MG Cap.ER PO SCH (07:43)
[2018-10-07] MEDS: Carvedilol 25 MG Tab PO SCH ×2 (07:43→17:13)
[2018-10-07] MEDS: Lactobacillus Rhamnosus GG (Probiotic) Cap PO SCH ×2 (07:44→17:14)
[2018-10-07] MEDS: HYDRALAZINE 100 MG PO SCH ×3 (07:44→17:13)
[2018-10-07] MEDS: amLODIPine 5 MG Tab PO SCH (07:44)
[2018-10-07] MEDS: Albuterol/Ipratropium 3.0-0.5 MG/3 ML Neb Soln NEB SCH ×2 (07:45→19:34)
[2018-10-07] MEDS: Ferrous Sulfate 325 MG Tab PO SCH ×3 (07:45→17:14)
[2018-10-07] MEDS: Aspirin 81 MG Tab.Chew PO SCH (07:45)
[2018-10-07] MEDS: Magnesium Oxide 400 MG Tab PO SCH (07:46)
[2018-10-07] MEDS: Multivitamin Tab PO SCH (07:46)
[2018-10-07] MEDS: Pantoprazole 40 MG Tab.CR PO SCH (19:36)
[2018-10-07] MEDS: Finasteride 5 MG Tab PO SCH (19:36)
[2018-10-08] MEDS: Carvedilol 25 MG Tab PO SCH ×2 (08:33→17:16)
[2018-10-08] MEDS: Aspirin 81 MG Tab.Chew PO SCH (08:33)
[2018-10-08] MEDS: Ferrous Sulfate 325 MG Tab PO SCH ×3 (08:34→17:17)
[2018-10-08] MEDS: Albuterol/Ipratropium 3.0-0.5 MG/3 ML Neb Soln NEB SCH ×2 (08:34→19:15)
[2018-10-08] MEDS: Lactobacillus Rhamnosus GG (Probiotic) Cap PO SCH ×2 (08:34→17:16)
[2018-10-08] MEDS: Losartan 50 MG Tab PO SCH (08:34)
[2018-10-08] MEDS: BUMETANIDE 2 MG PO SCH (08:35)
[2018-10-08] MEDS: amLODIPine 5 MG Tab PO SCH (08:35)
[2018-10-08] MEDS: HYDRALAZINE 100 MG PO SCH ×3 (08:35→17:17)
[2018-10-08] MEDS: Magnesium Oxide 400 MG Tab PO SCH (08:35)
[2018-10-08] MEDS: Multivitamin Tab PO SCH (08:35)
[2018-10-08] MEDS: Tamsulosin 0.4 MG Cap.ER PO SCH (08:35)
[2018-10-08] MEDS: Pantoprazole 40 MG Tab.CR PO SCH (19:15)
[2018-10-08] MEDS: Finasteride 5 MG Tab PO SCH (19:15)
[2018-10-09] MEDS: Albuterol/Ipratropium 3.0-0.5 MG/3 ML Neb Soln NEB SCH ×2 (07:42→20:03)
[2018-10-09] MEDS: Carvedilol 25 MG Tab PO SCH ×2 (07:43→17:35)
[2018-10-09] MEDS: Losartan 50 MG Tab PO SCH (07:44)
[2018-10-09] MEDS: Aspirin 81 MG Tab.Chew PO SCH (07:44)
[2018-10-09] MEDS: Lactobacillus Rhamnosus GG (Probiotic) Cap PO SCH ×2 (07:44→17:39)
[2018-10-09] MEDS: Ferrous Sulfate 325 MG Tab PO SCH ×3 (07:44→17:40)
[2018-10-09] MEDS: HYDRALAZINE 100 MG PO SCH ×3 (07:45→17:40)
[2018-10-09] MEDS: BUMETANIDE 2 MG PO SCH (07:45)
[2018-10-09] MEDS: amLODIPine 5 MG Tab PO SCH (07:45)
[2018-10-09] MEDS: Tamsulosin 0.4 MG Cap.ER PO SCH (07:45)
[2018-10-09] MEDS: Magnesium Oxide 400 MG Tab PO SCH (07:45)
[2018-10-09] MEDS: Multivitamin Tab PO SCH (07:46)
[2018-10-09] MEDS: Pantoprazole 40 MG Tab.CR PO SCH (20:03)
[2018-10-09] MEDS: Finasteride 5 MG Tab PO SCH (20:04)
[2018-10-10] MEDS: Aspirin 81 MG Tab.Chew PO SCH (07:44)
[2018-10-10] MEDS: Lactobacillus Rhamnosus GG (Probiotic) Cap PO SCH ×2 (07:44→17:33)
[2018-10-10] MEDS: BUMETANIDE 2 MG PO SCH (07:45)
[2018-10-10] MEDS: Tamsulosin 0.4 MG Cap.ER PO SCH (07:45)
[2018-10-10] MEDS: Magnesium Oxide 400 MG Tab PO SCH (07:45)
[2018-10-10] MEDS: Multivitamin Tab PO SCH (07:45)
[2018-10-10] MEDS: Ferrous Sulfate 325 MG Tab PO SCH ×3 (07:45→17:33)
[2018-10-10] MEDS: amLODIPine 5 MG Tab PO SCH (07:46)
[2018-10-10] MEDS: HYDRALAZINE 100 MG PO SCH ×3 (07:46→17:32)
[2018-10-10] MEDS: Albuterol/Ipratropium 3.0-0.5 MG/3 ML Neb Soln NEB SCH ×2 (07:48→20:11)
[2018-10-10] MEDS: Carvedilol 25 MG Tab PO SCH ×2 (08:42→17:32)
[2018-10-10] MEDS: Finasteride 5 MG Tab PO SCH (20:11)
[2018-10-10] MEDS: Pantoprazole 40 MG Tab.CR PO SCH (20:12)
[2018-10-11] MEDS: HYDRALAZINE 100 MG PO SCH ×3 (07:49→17:22)
[2018-10-11] MEDS: Carvedilol 25 MG Tab PO SCH ×2 (07:49→17:22)
[2018-10-11] MEDS: Tamsulosin 0.4 MG Cap.ER PO SCH (07:49)
[2018-10-11] MEDS: amLODIPine 5 MG Tab PO SCH (07:49)
[2018-10-11] MEDS: BUMETANIDE 2 MG PO SCH (07:49)
[2018-10-11] MEDS: Lactobacillus Rhamnosus GG (Probiotic) Cap PO SCH ×2 (07:50→17:21)
[2018-10-11] MEDS: Aspirin 81 MG Tab.Chew PO SCH (07:50)
[2018-10-11] MEDS: Ferrous Sulfate 325 MG Tab PO SCH ×3 (07:51→17:22)
[2018-10-11] MEDS: Albuterol/Ipratropium 3.0-0.5 MG/3 ML Neb Soln NEB SCH ×2 (07:51→19:18)
[2018-10-11] MEDS: Magnesium Oxide 400 MG Tab PO SCH (07:51)
[2018-10-11] MEDS: Multivitamin Tab PO SCH (07:52)
[2018-10-11] MEDS: Finasteride 5 MG Tab PO SCH (19:18)
[2018-10-11] MEDS: Pantoprazole 40 MG Tab.CR PO SCH (19:18)
[2018-10-12] MEDS: Carvedilol 25 MG Tab PO SCH ×2 (07:43→17:41)
[2018-10-12] MEDS: Aspirin 81 MG Tab.Chew PO SCH (08:44)
[2018-10-12] MEDS: Lactobacillus Rhamnosus GG (Probiotic) Cap PO SCH ×2 (08:44→17:40)
[2018-10-12] MEDS: Ferrous Sulfate 325 MG Tab PO SCH ×3 (08:45→17:41)
[2018-10-12] MEDS: Tamsulosin 0.4 MG Cap.ER PO SCH (08:45)
[2018-10-12] MEDS: Albuterol/Ipratropium 3.0-0.5 MG/3 ML Neb Soln NEB SCH ×2 (08:45→19:04)
[2018-10-12] MEDS: amLODIPine 5 MG Tab PO SCH (08:46)
[2018-10-12] MEDS: Magnesium Oxide 400 MG Tab PO SCH (08:46)
[2018-10-12] MEDS: BUMETANIDE 2 MG PO SCH (08:46)
[2018-10-12] MEDS: HYDRALAZINE 100 MG PO SCH ×3 (08:46→17:47)
[2018-10-12] MEDS: Multivitamin Tab PO SCH (08:47)
[2018-10-12] MEDS: Pantoprazole 40 MG Tab.CR PO SCH (19:03)
[2018-10-12] MEDS: Finasteride 5 MG Tab PO SCH (19:03)
[2018-10-13] MEDS: Carvedilol 25 MG Tab PO SCH ×2 (07:49→17:29)
[2018-10-13] MEDS: HYDRALAZINE 100 MG PO SCH ×3 (07:50→17:29)
[2018-10-13] MEDS: amLODIPine 5 MG Tab PO SCH (07:50)
[2018-10-13] MEDS: BUMETANIDE 2 MG PO SCH (07:50)
[2018-10-13] MEDS: Tamsulosin 0.4 MG Cap.ER PO SCH (07:50)
[2018-10-13] MEDS: Lactobacillus Rhamnosus GG (Probiotic) Cap PO SCH ×2 (07:51→17:30)
[2018-10-13] MEDS: Multivitamin Tab PO SCH (07:51)
[2018-10-13] MEDS: Magnesium Oxide 400 MG Tab PO SCH (07:51)
[2018-10-13] MEDS: Ferrous Sulfate 325 MG Tab PO SCH ×3 (07:51→17:30)
[2018-10-13] MEDS: Aspirin 81 MG Tab.Chew PO SCH (07:52)
[2018-10-13] MEDS: Albuterol/Ipratropium 3.0-0.5 MG/3 ML Neb Soln NEB SCH ×2 (07:52→20:00)
[2018-10-13] MEDS: Finasteride 5 MG Tab PO SCH (19:59)
[2018-10-13] MEDS: Pantoprazole 40 MG Tab.CR PO SCH (20:00)
[2018-10-14] MEDS: Magnesium Oxide 400 MG Tab PO SCH (08:24)
[2018-10-14] MEDS: Lactobacillus Rhamnosus GG (Probiotic) Cap PO SCH ×2 (08:24→17:15)
[2018-10-14] MEDS: Aspirin 81 MG Tab.Chew PO SCH (08:24)
[2018-10-14] MEDS: Ferrous Sulfate 325 MG Tab PO SCH ×3 (08:24→17:15)
[2018-10-14] MEDS: HYDRALAZINE 100 MG PO SCH ×3 (08:25→17:15)
[2018-10-14] MEDS: amLODIPine 5 MG Tab PO SCH (08:25)
[2018-10-14] MEDS: Multivitamin Tab PO SCH (08:25)
[2018-10-14] MEDS: BUMETANIDE 2 MG PO SCH (08:25)
[2018-10-14] MEDS: Tamsulosin 0.4 MG Cap.ER PO SCH (08:25)
[2018-10-14] MEDS: Carvedilol 25 MG Tab PO SCH ×2 (08:28→17:15)
[2018-10-14] MEDS: Albuterol/Ipratropium 3.0-0.5 MG/3 ML Neb Soln NEB SCH ×2 (08:28→19:10)
[2018-10-14] MEDS: Pantoprazole 40 MG Tab.CR PO SCH (19:10)
[2018-10-14] MEDS: Finasteride 5 MG Tab PO SCH (19:10)
[2018-10-15] MEDS: Carvedilol 25 MG Tab PO SCH ×2 (07:55→17:11)
[2018-10-15] MEDS: Ferrous Sulfate 325 MG Tab PO SCH ×3 (07:56→17:11)
[2018-10-15] MEDS: Albuterol/Ipratropium 3.0-0.5 MG/3 ML Neb Soln NEB SCH ×2 (07:56→19:28)
[2018-10-15] MEDS: Lactobacillus Rhamnosus GG (Probiotic) Cap PO SCH ×2 (07:56→17:10)
[2018-10-15] MEDS: Aspirin 81 MG Tab.Chew PO SCH (07:56)
[2018-10-15] MEDS: Tamsulosin 0.4 MG Cap.ER PO SCH (07:57)
[2018-10-15] MEDS: amLODIPine 5 MG Tab PO SCH (07:57)
[2018-10-15] MEDS: BUMETANIDE 2 MG PO SCH (07:57)
[2018-10-15] MEDS: HYDRALAZINE 100 MG PO SCH ×3 (07:57→17:12)
[2018-10-15] MEDS: Magnesium Oxide 400 MG Tab PO SCH (07:57)
[2018-10-15] MEDS: Multivitamin Tab PO SCH (07:58)
[2018-10-15] MEDS: Pantoprazole 40 MG Tab.CR PO SCH (19:27)
[2018-10-15] MEDS: Finasteride 5 MG Tab PO SCH (19:27)
[2018-10-16] MEDS: Carvedilol 25 MG Tab PO SCH (07:40)
[2018-10-16] MEDS: Lactobacillus Rhamnosus GG (Probiotic) Cap PO SCH (07:41)
[2018-10-16] MEDS: Aspirin 81 MG Tab.Chew PO SCH (07:41)
[2018-10-16] MEDS: Albuterol/Ipratropium 3.0-0.5 MG/3 ML Neb Soln NEB SCH (07:41)
[2018-10-16] MEDS: amLODIPine 5 MG Tab PO SCH (07:42)
[2018-10-16] MEDS: BUMETANIDE 2 MG PO SCH (07:42)
[2018-10-16] MEDS: Ferrous Sulfate 325 MG Tab PO SCH (07:42)
[2018-10-16] MEDS: HYDRALAZINE 100 MG PO SCH (07:42)
[2018-10-16] MEDS: Tamsulosin 0.4 MG Cap.ER PO SCH (07:42)
[2018-10-16] MEDS: Magnesium Oxide 400 MG Tab PO SCH (07:42)
[2018-10-16 07:43] VITALS: BP 167/73
[2018-10-16] MEDS: Multivitamin Tab PO SCH (07:43)
--- NOTE | 2018-10-16 09:18 | PCM.DCSUM1 ---
Discharge Summary - Hospital Course Free Text/Narrative:: Patient is ready for discharge today from [facility]. He has had a long stay with intermittent hospitalizations due to antibiotic reactions and decompensation. He had a heel flap placed and reduced antibiotic therapy. He did well on this course of treatment. Heel flap has healed and skin is intact. Patient will be discharging home with family, without services. He has no concerns and is ready for discharge. Diagnosis: Stroke: No - Discharge Data Discharge Date: 10/16/18 Discharge Disposition: Home, Self-Care 01 Condition: Good - Discharge Diagnosis/Problem(s) (1) Urinary retention SNOMED Code(s): 544835152 ICD Code: R33.9 - RETENTION OF URINE, UNSPECIFIED Status: Acute Current Visit: Yes Problem Details: Cystoscope was completed per Dr. Ang . urinarting well. Follow up appointment in 3 months scheduled. (2) Acute renal failure SNOMED Code(s): 92013151 ICD Code: N17.9 - ACUTE KIDNEY FAILURE, UNSPECIFIED Status: Acute Current Visit: No Problem Details: We will monitor creatinine and BUN level for decline, maintain fluid level Qualifiers: Acute renal failure type: unspecified Qualified Code(s): N17.9 - Acute kidney failure, unspecified (3) Osteomyelitis SNOMED Code(s): 88992849 ICD Code: M86.9 - OSTEOMYELITIS, UNSPECIFIED Status: Acute Priority: High Current Visit: No Onset Date: ~06/07/18 Problem Details: Skin flap has healed and skin is intact. He is monitered by ID in [facility] and podiatry, Dr. Saavedra at [facility]. He has follow up appointments scheduled. Qualifiers: Osteomyelitis type: other chronic Osteomyelitis location: foot Laterality : left Qualified Code(s): M86.672 - Other chronic osteomyelitis, left ankle and foot - Patient Summary/Data Consults: Consultations 07/22/18 09:48 OT Evaluation and Treatment [CONS] Routine PT Evaluation and Treatment [CONS] Routine - Patient Instructions Diet: Diabetic Diet Activity: As Tolerated Driving: Do Not Drive Showering/Bathing: May Shower - Discharge Plan *PRESCRIPTION DRUG MONITORING PROGRAM REVIEWED*: Not Applicable *COPY OF PRESCRIPTION DRUG MONITORING REPORT IN PATIENT MILAN: Not Applicable Prescriptions/Med Rec: amLODIPine [Norvasc] 5 mg PO DAILY #30 tablet Carvedilol [Coreg] 50 mg PO BIDMEALS #60 tablet Finasteride [Proscar] 5 mg PO DAILY #30 tablet Magnesium Oxide [Magnesium] 400 mg PO DAILY #30 tablet Multivitamins [Tab-A-Mayte] 1 tab PO DAILY #30 tablet Pantoprazole Sodium [Protonix] 40 mg PO BEDTIME #30 tablet. Tamsulosin [Flomax] 0.4 mg PO DAILY #30 cap.er Home Medications: Home Meds Acetaminophen [Tylenol] 650 mg PO Q4H PRN 07/10/18 [History] Aspirin 81 mg PO DAILY 07/10/18 [History] Losartan [Cozaar] 50 mg PO DAILY 07/10/18 [History] Bumetanide [Bumex] 2 mg PO DAILY 07/20/18 [History] Ferrous Sulfate 325 mg PO TIDMEALS 07/20/18 [History] Albuterol/Ipratropium [DuoNeb 3.0-0.5 MG/3 ML] 1 vial INH BID 10/02/18 [History] Albuterol/Ipratropium [DuoNeb 3.0-0.5 MG/3 ML] 1 vial INH Q4H PRN 10/02/18 [ History] Lactobacillus Rhamnosus GG [Culturelle] 1 tab PO BID 10/02/18 [History] Loperamide HCl [Anti-Diarrheal] 2 mg PO ASDIRECTED PRN 10/02/18 [History] Multivitamin [Daily Multiple Vitamin] 1 tab PO DAILY 10/02/18 [History] Promethazine [Phenergan] 25 mg PO Q6H PRN 10/02/18 [History] Tamsulosin [Flomax] 1 tab PO DAILY 10/02/18 [History] Carvedilol [Coreg] 50 mg PO BIDMEALS #60 tablet 10/16/18 [Rx] Finasteride [Proscar] 5 mg PO DAILY #30 tablet 10/16/18 [Rx] Magnesium Oxide [Magnesium] 400 mg PO DAILY #30 tablet 10/16/18 [Rx] Multivitamins [Tab-A-Matye] 1 tab PO DAILY #30 tablet 10/16/18 [Rx] Pantoprazole Sodium [Protonix] 40 mg PO BEDTIME #30 tablet. 10/16/18 [Rx] Tamsulosin [Flomax] 0.4 mg PO DAILY #30 cap.er 10/16/18 [Rx] amLODIPine [Norvasc] 5 mg PO DAILY #30 tablet 10/16/18 [Rx] Oxygen Therapy Mode: Room Air Patient Handouts: Bone and Joint Infections, Adult, Blood Glucose Monitoring, Adult, Acute Kidney Injury, Adult - Discharge Summary/Plan Comment DC Time >30 min.: Yes - General Info Date of Service: 10/16/18 Admission Dx/Problem (Free Text: Osteomylitis, Chronic Kidney Disease, Urinary Retention Functional Status: Reports: Pain Controlled - Review of Systems General: Reports: No Symptoms HEENT: Reports: No Symptoms, Glasses Pulmonary: Reports: No Symptoms Cardiovascular: Reports: No Symptoms Gastrointestinal: Reports: No Symptoms Genitourinary: Reports: No Symptoms Musculoskeletal: Reports: No Symptoms Skin: Reports: No Symptoms Neurological: Reports: No Symptoms - Patient Data Vitals - Most Recent: Last Vital Signs Temp 98.4 F 10/16/18 07:57 Pulse 79 10/16/18 07:57 Resp 20 10/16/18 07:57 BP 167/73 H 10/16/18 07:57 Pulse Ox 92 L 10/16/18 07:57 Weight - Most Recent: 266 lb I&O - Last 24 hours: Intake & Output 10/15/18 10/16/18 10/16/18 22:59 06:59 14:59 Intake Total 480 960 Output Total 700 900 700 Balance -220 -900 260 Lab Results - Last 24 hrs: Laboratory Results - last 24 hr 10/16/18 Range/Units 07:15 Sodium 144 (136-145) mmol/L Potassium 4.5 (3.5-5.1) mmol/L Chloride 109 H (98-107) mmol/L Carbon Dioxide 25.2 (21.0-32.0) mmol/L BUN 49 H (7-18) mg/dL Creatinine 2.79 H (0.51-1.17) mg/dL Est Cr Clr Drug Dosing 27.25 mL/min Estimated GFR (MDRD) 23 mL/min Glucose 90 (74-106) mg/dL Calcium 8.6 (8.5-10.1) mg/dL Med Orders - Current: Current Medications Acetaminophen (Tylenol) 650 mg PO Q4H PRN PRN Reason: Pain/Fever Last Admin: 09/29/18 17:07 Dose: 650 mg Albuterol/Ipratropium (Duoneb 3.0-0.5 Mg/3 Ml) 3 ml NEB Q4HRRT PRN PRN Reason: Cough Last Admin: 10/06/18 08:20 Dose: 3 ml Albuterol/Ipratropium (Duoneb 3.0-0.5 Mg/3 Ml) 3 ml NEB BIDRT [facility] [place] Last Admin: 10/16/18 07:41 Dose: 3 ml Amlodipine Besylate (Norvasc) 5 mg PO DAILY [facility] [place] Last Admin: 10/16/18 07:42 Dose: 5 mg Aspirin (Aspirin) 81 mg PO DAILY [facility] [place] Last Admin: 10/16/18 07:41 Dose: 81 mg Carvedilol (Coreg) 50 mg PO BIDMEALS [facility] Last Admin: 10/16/18 07:40 Dose: 50 mg Ferrous Sulfate (Ferrous Sulfate) 325 mg PO TIDMEALS [facility] [place] Last Admin: 10/16/18 07:42 Dose: 325 mg Finasteride (Proscar) 5 mg PO DAILY@1999 [facility] Last Admin: 10/15/18 19:27 Dose: 5 mg Lactobacillus Rhamnosus (Culturelle) 1 cap PO BID [facility] Last Admin: 10/16/18 07:41 Dose: 1 cap Loperamide HCl (Imodium Ad) 2 mg PO ASDIRECTED PRN PRN Reason: Diarrhea Last Admin: 08/01/18 20:14 Dose: 2 mg Magnesium Oxide (Magnesium Oxide) 400 mg PO DAILY [facility] [place] Last Admin: 10/16/18 07:42 Dose: 400 mg Multivitamins/Minerals/Vitamin C (Tab-A-Mayte) 1 tab PO DAILY [facility] [place] Last Admin: 10/16/18 07:43 Dose: 1 tab Hydralazine 100mg (Tablets) 1 each PO TID [facility] [place] Last Admin: 10/16/18 07:42 Dose: 1 each Bumetanide 2mg Tabs 1 each PO DAILY [facility] [place] Last Admin: 10/16/18 07:42 Dose: 1 each Pantoprazole Sodium (Protonix) 40 mg PO BEDTIME [facility] [place] Last Admin: 10/15/18 19:27 Dose: 40 mg Promethazine HCl (Phenergan) 25 mg PO Q6H PRN PRN Reason: Nausea/Vomiting Last Admin: 08/21/18 10:06 Dose: 25 mg Tamsulosin HCl (Flomax) 0.4 mg PO DAILY [facility] Last Admin: 10/16/18 07:42 Dose: 0.4 mg Discontinued Medications Albuterol/Ipratropium (Duoneb 3.0-0.5 Mg/3 Ml) 3 ml NEB QIDRT [facility] [place] Last Admin: 09/02/18 07:38 Dose: 3 ml Betamethasone/Clotrimazole (Lotrisone) 1 gm TOP Q12H [facility] Stop: 08/14/18 08:00 Last Admin: 08/14/18 07:25 Dose: 1 applic Bumetanide (Bumex) 1 mg PO BID@08,16 [facility] Last Admin: 08/20/18 08:07 Dose: 1 mg Bumetanide (Bumex) 1 mg PO DAILY [facility] [place] Last Admin: 09/26/18 08:46 Dose: 1 mg Carvedilol (Coreg) 25 mg PO BIDMEALS [facility] [place] Last Admin: 10/09/18 17:35 Dose: 25 mg Cephalexin (Keflex) 500 mg PO TID [facility] Last Admin: 09/20/18 13:53 Dose: 500 mg Ciprofloxacin (Ciprofloxacin Hcl) 250 mg PO Q12H [facility] [place] Stop: 09/08/18 08:01 Last Admin: 07/31/18 08:20 Dose: 250 mg Clindamycin HCl (Cleocin) 450 mg PO TID [facility] Stop: 09/08/18 08:01 Last Admin: 07/31/18 11:26 Dose: 450 mg Clindamycin HCl (Cleocin) 150 mg PO TID [facility] [place] Stop: 09/08/18 08:01 Last Admin: 08/30/18 08:53 Dose: 150 mg Enoxaparin Sodium (Lovenox) 30 mg SUBCUT DAILY@18 [facility] [place] Stop: 08/19/18 18:00 Last Admin: 08/19/18 17:11 Dose: 30 mg Finasteride (Proscar) 5 mg PO DAILY [facility] [place] Last Admin: 08/01/18 08:11 Dose: 5 mg Fluconazole (Diflucan) 400 mg PO DAILY [facility] [place] Stop: 08/18/18 08:01 Last Admin: 08/18/18 07:45 Dose: 400 mg Hydralazine HCl (Apresoline) 100 mg PO TID [facility] [place] Last Admin: 07/31/18 11:22 Dose: 100 mg Loperamide HCl (Imodium Ad) 4 mg PO ONETIME ONE Stop: 07/20/18 13:26 Last Admin: 07/20/18 15:51 Dose: 4 mg Loperamide HCl (Imodium Ad) Confirm Administered Dose 4 mg .ROUTE .STK-MED ONE Stop: 07/20/18 15:51 Last Admin: 07/20/18 16:02 Dose: Not Given Losartan Potassium (Cozaar) 25 mg PO DAILY [facility] Last Admin: 07/31/18 08:22 Dose: 25 mg Losartan Potassium (Cozaar) 50 mg PO DAILY [facility] [place] Last Admin: 10/09/18 07:44 Dose: 50 mg Ciprofloxacin 250mg (Tablets) 1 each PO Q12H [facility] Stop: 09/08/18 08:01 Last Admin: 08/30/18 08:53 Dose: 1 each Clindamycin 300mg (Caps) 1 each PO TID [facility] [place] Stop: 09/08/18 08:01 Last Admin: 08/30/18 08:53 Dose: 1 each Losartan 25mg (Tablets) 1 each PO DAILY [facility] [place] Last Admin: 09/25/18 07:46 Dose: 1 each Cephalexin 500mg (Capsule) 1 each PO Q12HR [facility] [place] Stop: 09/13/18 08:00 Last Admin: 09/13/18 07:48 Dose: 1 each Cephalexin 500mg 0 each PO TID [facility] [place] Last Admin: 09/23/18 17:21 Dose: 1 each Nystatin (Nystop) 0 gm TOP TID [facility] [place] Last Admin: 07/31/18 11:27 Dose: 1 applic Pantoprazole Sodium (Protonix) 40 mg PO BID [facility] [place] Last Admin: 07/31/18 08:27 Dose: 40 mg Torsemide (Demadex) 20 mg PO DAILY [facility] [place] Last Admin: 07/30/18 12:21 Dose: Not Given - Exam General: Reports: Alert, Oriented HEENT: Reports: Pupils Equal, Pupils Reactive, Mucous Membr. Moist/[place] Neck: Reports: Supple Lungs: Reports: Clear to Auscultation, Normal Respiratory Effort Cardiovascular: Reports: Regular Rate, Regular Rhythm GI/Abdominal Exam: Normal Bowel Sounds, Soft, Non-Tender (Male) Exam: Deferred Rectal (Males) Exam: Deferred Back Exam: Reports: Normal Inspection Extremities: Pedal Edema (1+) Skin: Reports: Warm, Dry, Intact Wound/Incisions: Reports: Healing Well, Dressing Dry and Intact Neurological: Reports: No New Focal Deficit Psy/Mental Status: Reports: Alert, Normal Affect, Normal Mood
== END 2018-10-16 11:18 | disposition home or self-care (01) | DRG 344 ==
LOC: LL.MS 09:05 → LL.SWG 07-26 14:15
PROVIDERS: ADMIT Family Medicine; ATTEND Family Medicine
PROC: 0TJB8ZZ Inspection of Bladder, Via Natural or Artificial Opening Endoscopic (ICD-10-PCS; principal; 2018-10-02)
DX: E11.69 Type 2 diabetes mellitus with other specified complication (principal); N17.9 Acute kidney failure, unspecified; J44.9 Chronic obstructive pulmonary disease, unspecified; M86.672 Other chronic osteomyelitis, left ankle and foot; H54.7 Unspecified visual loss; M19.91 Primary osteoarthritis, unspecified site; E11.40 Type 2 diabetes mellitus with diabetic neuropathy, unspecified; K21.9 Gastro-esophageal reflux disease without esophagitis; N40.1 Benign prostatic hyperplasia with lower urinary tract symptoms; R31.9 Hematuria, unspecified; E11.621 Type 2 diabetes mellitus with foot ulcer; L97.509 Non-pressure chronic ulcer of other part of unspecified foot with unspecified severity; N18.9 Chronic kidney disease, unspecified; I12.9 Hypertensive chronic kidney disease with stage 1 through stage 4 chronic kidney disease, or unspecified chronic kidney disease; R33.8 Other retention of urine; Z89.421 Acquired absence of other right toe(s); Z98.1 Arthrodesis status; Z79.4 Long term (current) use of insulin; Z88.0 Allergy status to penicillin; Z79.899 Other long term (current) drug therapy; Z79.82 Long term (current) use of aspirin
CPT/HCPCS: 36415; 51701; 51702; 51798; 80048; 80053; 81001; 82607; 82746; 82962; 83036; 83540; 83880; 85025; 86140; 87070; 87077; 87086; 87088; 87186; 87205; 94640; 97110-GO; 97110-GP; 97116-GP; 97162-GP; 97165-GO; 97530-GO; 97530-GP; 97535-GO; A9270-GY; J1650; J7620-GY

== ENCOUNTER → 2018-10-02 | Day surgery (SDC) | payer BC, MEDICARE ==
[~2018-10-02] MED LIST: Lactated Ringers 1,000 ML IV SCH; Lidocaine 2% HCl 11 ML Jelly Filled Syringe ONE; Lidocaine 2% HCl 11 ML Jelly Filled Syringe TOP ONE; Midazolam 1 MG/ML 2 ML SDV ONE; Propofol 200 MG/20 ML SDV ONE; Sodium Chloride 0.9% 10 ML Syringe FLUSH PRN
[2018-10-02 09:43] VITALS: BP 131/59
--- NOTE | 2018-10-02 10:37 | OR ---
Date of Procedure: 10/02/2018 PREOPERATIVE DIAGNOSIS: Hematuria. POSTOPERATIVE DIAGNOSES: 1. Hematuria. 2. Benign prostatic hyperplasia. PROCEDURE: Cystoscopy. ANESTHESIA: MAC. COMPLICATION: None. SPECIMEN: None. DRAINS: None. BLOOD LOSS: None. HISTORY: This is a gentleman with a history of hematuria. WHAT WAS DONE: The patient was placed on the operative table in lithotomy position. He was sedated by Anesthesia. He was prepped and draped sterilely. Xylocaine gel was injected retrograde per urethra. Cystoscope was inserted. He was then examined with the Foroblique and 70 degree lens. Urethra was unremarkable. Prostate is trilobar with a modest median bar and visual obstruction. Bladder shows no mucosal lesions, no erythema, no stones. The bladder was emptied. Scope was removed. He tolerated this without difficulty. GLORIA Ang MD /[id number]
== END | disposition swing bed (61) ==
LOC: LL.SDS 10:00
PROVIDERS: ATTEND Urology
DX: N40.1 Benign prostatic hyperplasia with lower urinary tract symptoms (principal); R33.8 Other retention of urine; R31.9 Hematuria, unspecified; M86.672 Other chronic osteomyelitis, left ankle and foot; J44.9 Chronic obstructive pulmonary disease, unspecified; D64.9 Anemia, unspecified; Z79.899 Other long term (current) drug therapy; Z79.51 Long term (current) use of inhaled steroids
CPT/HCPCS: 52005; A9270; J2250; J2704; J7120

== ENCOUNTER 2019-05-23 13:02 | Emergency (ER) | payer BC, MEDICARE ==
[2019-05-23] MEDS ORDERED: Sodium Chloride 0.9% 10 ML Syringe FLUSH PRN (13:13)
--- NOTE | 2019-05-23 13:15 | EDM.PDOC ---
ED HPI GENERAL MEDICAL PROBLEM - General Chief Complaint: General Stated Complaint: weakness, SOBl Time Seen by Provider: 05/23/19 13:13 Source of Information: Reports: Patient, EMS, Family History Limitations: Reports: No Limitations - History of Present Illness INITIAL COMMENTS - FREE TEXT/NARRATIVE: Patient brought to ER via EMS due to increased weakness. Has had URI/cold symptoms for 3 days. Reports body aches/nasal congestion/ cough. Minimal fever/chills. No ear pain. No specific complaint of SOB. Congested cough but does not note any specific color of sputum. No specific other pain complaint such as chest or abdominal pain. Denies GI changes such as nausea/emesis/loose stools. No dysuria/hematuria or other changes in urination. No new limb complaints/neuro changes. Has chronic peripheral edema that is unchanged. Unable to get out of bed today without assistance. Ambulance notes that O2 sats on room air at home were around 58%, however patient's fingers were cold. Sats increased to 80s on NC O2. Improved to 90s on non-rebreather at 10L. Generalized Pain Score (Numeric/FACES): 4 - Related Data Allergies Allergy/AdvReac Type Severity Reaction Status Date / Time atorvastatin [From Lipitor] Allergy Cannot Verified 05/23/19 13:38 Remember Penicillins Allergy Cannot Verified 05/23/19 13:38 Remember rosuvastatin [From Crestor] Allergy Cannot Verified 05/23/19 13:38 Remember simvastatin Allergy Cannot Verified 05/23/19 13:38 Remember Home Meds: Home Meds Acetaminophen [Tylenol] 650 mg PO Q4H PRN 07/10/18 [History] Aspirin 81 mg PO DAILY 07/10/18 [History] Losartan [Cozaar] 50 mg PO DAILY 07/10/18 [History] Bumetanide [Bumex] 2 mg PO DAILY 07/20/18 [History] Finasteride [Proscar] 5 mg PO DAILY #30 tablet 10/16/18 [Rx] Multivitamins [Tab-A-Mayte] 1 tab PO DAILY #30 tablet 10/16/18 [Rx] Pantoprazole Sodium [Protonix] 40 mg PO BEDTIME #30 tablet.dr 10/16/18 [Rx] Tamsulosin [Flomax] 0.4 mg PO DAILY #30 cap.er 10/16/18 [Rx] amLODIPine [Norvasc] 5 mg PO DAILY #30 tablet 10/16/18 [Rx] Carvedilol [Coreg] 50 mg PO BID 05/23/19 [History] Past Medical History HEENT History: Reports: Impaired Vision, Other (See Below) Other HEENT History: Missing teeth Cardiovascular History: Reports: Hypertension Respiratory History: Reports: None Gastrointestinal History: Reports: GERD, Hemorrhoids Genitourinary History: Reports: Acute Renal Failure, Retention, Urinary Musculoskeletal History: Reports: Other (See Below) Other Musculoskeletal History: Osteomyelitis Neurological History: Reports: Neuropathy, Diabetic Psychiatric History: Reports: None Endocrine/Metabolic History: Reports: Diabetes, Type II Hematologic History: Reports: Anemia Immunologic History: Reports: None Oncologic (Cancer) History: Reports: None Dermatologic History: Reports: Other (See Below) Other Dermatologic History: 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 - Infectious Disease History Infectious Disease History: Reports: Chicken Pox, Measles, MRSA, Mumps - Past Surgical History HEENT Surgical History: Reports: LASIK Other HEENT Surgeries/Procedures: left eye GI Surgical History: Reports: Colonoscopy Neurological Surgical History: Reports: C-Spine, Spinal Fusion Other Neurological Surgeries/Procedures: C-4-5-6 fusion, mesh tx 2005 Musculoskeletal Surgical History: Reports: Other (See Below) Other Musculoskeletal Surgeries/Procedures:: right foot 5th toe ampution 2016 Social & Family History - Family History Family Medical History: Unobtainable - Caffeine Use Caffeine Use: Reports: Coffee ED ROS GENERAL - Review of Systems Review Of Systems: Comprehensive ROS is negative, except as noted in HPI. ED EXAM, GENERAL - Physical Exam Exam: See Below Exam Limited By: Other (morbid obesity/weakness) General Appearance: Alert, Obese, Other (no acute distress, on O2 via nonrebreather mask) Eye Exam: Bilateral Eye: EOMI, PERRL Nose: No: Nasal Deformity, Nasal Swelling, Nasal Drainage Throat/Mouth: Normal Lips, Normal Oropharynx, Normal Voice, No Airway Compromise Head: Atraumatic, Normocephalic Neck: Supple, Non-Tender, Full Range of Motion Respiratory/Chest: Decreased Breath Sounds (throughout), Rhonchi (bilaterally), Wheezing (bilaterally), Accessory Muscle Use (mild increase abdominal effort with breathing. ), Retractions (mild). No: Stridor Cardiovascular: Regular Rate, Rhythm, No Murmur GI/Abdominal: Normal Bowel Sounds, Soft, Non-Tender, Other (obese) (Male) Exam: Deferred Rectal (Males) Exam: Deferred Back Exam: No: Muscle Spasm Extremities: Non-Tender, Pedal Edema (bilateral, 3+) Neurological: Alert, Oriented, Normal Cognition Psychiatric: Normal Affect, Normal Mood Skin Exam: Warm, Dry, Intact, Other (pale) Course - Vital Signs Last Recorded V/S: Last Vital Signs Temp 37.7 C 05/23/19 13:11 Pulse 77 05/23/19 15:15 Resp 18 05/23/19 15:15 BP 159/66 H 05/23/19 15:15 Pulse Ox 94 L 05/23/19 15:15 - Orders/Labs/Meds Orders: Active Orders 24 hr Category Date Time Status BIPAP [RT BiPAP/CPAP] [RC] ASDIRECTED Care 05/23/19 14:00 Active Cavazos Catheter Insertion [Insert Urinary Catheter] [OM. Care 05/23/19 14:30 Ordered PC] Q24H RT Aerosol Therapy [RC] ASDIRECTED Care 05/23/19 13:19 Active RT Aerosol Therapy [RC] ASDIRECTED Care 05/23/19 14:03 Active Urinary Catheter Assessment [RC] ASDIRECTED Care 05/23/19 14:25 Active Chest 1V Frontal [CR] Stat Exams 05/23/19 13:14 Taken Sodium Chloride 0.9% [Saline Flush] Med 05/23/19 13:13 Active 10 ml FLUSH ASDIRECTED PRN Saline Lock Insert [OM.PC] Stat Oth 05/23/19 13:14 Ordered Medication Orders Sodium Chloride (Saline Flush) 10 ml FLUSH ASDIRECTED PRN PRN Reason: Keep Vein Open Last Admin: 05/23/19 14:09 Dose: 10 ml Labs: Laboratory Tests 05/23/19 05/23/19 05/23/19 Range/Units 13:14 13:34 13:34 WBC 15.6 H (4.0-10.2) K/uL RBC 2.65 L (4.33-5.41) M/uL Hgb 7.2 L* (13.1-16.8) g/dL Hct 22.4 L* (39.0-49.0) % MCV 84.5 D (84.0-98.0) fL MCH 27.2 L (28.2-33.3) pg MCHC 32.1 (31.7-36.0) g/dL RDW 14.7 H (11.2-14.1) % Plt Count 201 (150-350) K/uL Neut % (Auto) 90.8 H (45.0-80.0) % Lymph % (Auto) 5.7 L (10.0-50.0) % [place] % (Auto) 3.4 (2.0-14.0) % Eos % (Auto) 0.0 (0.0-5.0) % Baso % (Auto) 0.1 (0.0-2.0) % Neut # (Auto) 14.17 H (1.40-7.00) K/uL Lymph # (Auto) 0.89 (0.50-3.50) K/uL [place] # (Auto) 0.53 (0.00-1.00) K/uL Eos # (Auto) 0.00 (0.00-0.50) K/uL Baso # (Auto) 0.02 (0.00-0.20) K/uL ABG pH (7.35-7.45) ABG pCO2 (35-45) mmHG ABG pO2 (80-105) mmHG ABG HCO3 (22-26) mmol/L ABG Total CO2 (23-27) mmol/L ABG O2 Saturation (95-98) % ABG Base Excess (-2-3) mmol/L O2 Delivery Device Sodium 137 (136-145) mmol/L Potassium 3.7 (3.5-5.1) mmol/L Chloride 104 (98-107) mmol/L Carbon Dioxide 16.5 L (21.0-32.0) mmol/L BUN 84 H (7-18) mg/dL Creatinine 5.72 H* D (0.51-1.17) mg/dL Est Cr Clr Drug Dosing 13.35 mL/min Estimated GFR (MDRD) 10 mL/min Glucose 123 H (74-106) mg/dL Lactic Acid (0.4-2.0) mmol/L Calcium 7.8 L (8.5-10.1) mg/dL Magnesium 1.8 (1.8-2.4) mg/dL Total Bilirubin 0.4 (0.2-1.0) mg/dL AST 17 (15-37) U/L ALT 17 (12-78) U/L Alkaline Phosphatase 55 (46-116) IU/L NT-Pro-B Natriuret Pep > 81690 H (0-125) pg/mL Total Protein 6.2 L (6.4-8.2) g/dL Albumin 2.5 L (3.4-5.0) g/dL Specimen Type Urinblad Urine Color Yellow Urine Appearance Clear Urine pH 5.0 (5.0-9.0) Ur Specific [place] 1.020 (1.005-1.030) Urine Protein >=300 H (NEGATIVE) mg/dL Urine Glucose (UA) 100 H (NEGATIVE) mg/dL Urine Ketones Negative (NEGATIVE) mg/dL Urine Occult Blood Moderate H (NEGATIVE) Urine Nitrite Negative (NEGATIVE) Urine Bilirubin Negative (NEGATIVE) Urine Urobilinogen 0.2 (0.2-1.0) E.U./dL Ur Leukocyte Esterase Negative (NEGATIVE) Urine RBC 0-5 /HPF Urine WBC Not seen /HPF Ur Epithelial Cells Not seen /LPF Amorphous Sediment Few (0/HPF) /HPF Urine Bacteria Rare (NONE TO FEW) /HPF 05/23/19 05/23/19 Range/Units 13:34 13:55 WBC (4.0-10.2) K/uL RBC (4.33-5.41) M/uL Hgb (13.1-16.8) g/dL Hct (39.0-49.0) % MCV (84.0-98.0) fL MCH (28.2-33.3) pg MCHC (31.7-36.0) g/dL RDW (11.2-14.1) % Plt Count (150-350) K/uL Neut % (Auto) (45.0-80.0) % Lymph % (Auto) (10.0-50.0) % [place] % (Auto) (2.0-14.0) % Eos % (Auto) (0.0-5.0) % Baso % (Auto) (0.0-2.0) % Neut # (Auto) (1.40-7.00) K/uL Lymph # (Auto) (0.50-3.50) K/uL [place] # (Auto) (0.00-1.00) K/uL Eos # (Auto) (0.00-0.50) K/uL Baso # (Auto) (0.00-0.20) K/uL ABG pH 7.28 L* (7.35-7.45) ABG pCO2 33 L (35-45) mmHG ABG pO2 84 (80-105) mmHG ABG HCO3 15.6 L (22-26) mmol/L ABG Total CO2 17 L (23-27) mmol/L ABG O2 Saturation 95 (95-98) % ABG Base Excess -11 L (-2-3) mmol/L O2 Delivery Device Non rebr mask Sodium (136-145) mmol/L Potassium (3.5-5.1) mmol/L Chloride (98-107) mmol/L Carbon Dioxide (21.0-32.0) mmol/L BUN (7-18) mg/dL Creatinine (0.51-1.17) mg/dL Est Cr Clr Drug Dosing mL/min Estimated GFR (MDRD) mL/min Glucose (74-106) mg/dL Lactic Acid 0.6 (0.4-2.0) mmol/L Calcium (8.5-10.1) mg/dL Magnesium (1.8-2.4) mg/dL Total Bilirubin (0.2-1.0) mg/dL AST (15-37) U/L ALT (12-78) U/L Alkaline Phosphatase (46-116) IU/L NT-Pro-B Natriuret Pep (0-125) pg/mL Total Protein (6.4-8.2) g/dL Albumin (3.4-5.0) g/dL Specimen Type Urine Color Urine Appearance Urine pH (5.0-9.0) Ur Specific [place] (1.005-1.030) Urine Protein (NEGATIVE) mg/dL Urine Glucose (UA) (NEGATIVE) mg/dL Urine Ketones (NEGATIVE) mg/dL Urine Occult Blood (NEGATIVE) Urine Nitrite (NEGATIVE) Urine Bilirubin (NEGATIVE) Urine Urobilinogen (0.2-1.0) E.U./dL Ur Leukocyte Esterase (NEGATIVE) Urine RBC /HPF Urine WBC /HPF Ur Epithelial Cells /LPF Amorphous Sediment (0/HPF) /HPF Urine Bacteria (NONE TO FEW) /HPF Meds: Medications Generic Name Dose Route Start Last Admin Trade Name Freq PRN Reason Stop Dose Admin Sodium Chloride 10 ml 05/23/19 13:13 05/23/19 14:09 Saline Flush FLUSH 10 ml ASDIRECTED PRN Administration Keep Vein Open Discontinued Medications Generic Name Dose Route Start Last Admin Trade Name Freq PRN Reason Stop Dose Admin Albuterol/Ipratropium 3 ml 05/23/19 13:19 05/23/19 13:47 Duoneb 3.0-0.5 Mg/3 Ml NEB 05/23/19 13:20 3 ml ONETIME ONE Administration Albuterol/Ipratropium 3 ml 05/23/19 14:03 05/23/19 14:11 Duoneb 3.0-0.5 Mg/3 Ml NEB 05/23/19 14:04 3 ml ONETIME ONE Administration Bumetanide 1 mg 05/23/19 14:25 05/23/19 14:42 Bumex PO 05/23/19 14:26 1 mg ONETIME ONE Administration Azithromycin 500 mg/ Sodium 250 mls @ 250 mls/hr 05/23/19 13:20 05/23/19 14: 36 Chloride IV 05/23/19 14:19 250 mls/hr ONETIME ONE Administration Ceftriaxone Sodium 1 gm/ 100 mls @ 200 mls/hr 05/23/19 13:19 05/23/19 13:59 Sodium Chloride IV 05/23/19 13:48 200 mls/hr ONETIME ONE Administration Methylprednisolone Sodium Succinate 125 mg 05/23/19 13:21 05/23/19 13:47 Solu-Medrol IVPUSH 05/23/19 13:22 125 mg ONETIME ONE Administration - Radiology Interpretation Free Text/Narrative:: Chest xray shows increased cardiac silhouette, no obvious focal pneumonia/ pneumothorax Concern for interstitial/acute pulmonary edema per Radiology review. Potential aspiration pneumonia could also trigger this pattern but patient does not have history that supports this. - Re-Assessments/Exams Free Text/Narrative Re-Assessment/Exam: Labs, including ABG and influenza screen ordered. IV Rocephin/Zithromax/Solumedrol ordered. Portable chest xray ordered. DuoNeb. Free Text/Narrative Re-Assessment/Exam: 05/23/19 14:27 WBC elevated. pH 7.27 ABG Patient's usually has Hgb in 7 range over the past year. 7.2 today. Significantly levated BNP. Normal lactic acid. Creatinine over 5. Will given second DuoNeb. [facility] contacted and patient accepted for transfer by . He suggested 1mg Bumex prior to transfer. Patient will be switched from mask O2 to Bipap prior to transfer. 14:40 Patient's respiratory status much improved. No retractions noted/breathing much more easily. 05/23/19 15:59 Bipap not required prior to transfer given significant improved respiratory status. Departure - Departure Time of Disposition: 15:30 Disposition: DC/Tfer to [facility] Condition: Fair Clinical Impression: COPD exacerbation, Respiratory distress, acute, Respiratory tract infection, CHF, Congestive heart failure Acute renal failure Qualifiers: Acute renal failure type: unspecified Qualified Code(s): N17.9 - Acute kidney failure, unspecified - Discharge Information *PRESCRIPTION DRUG MONITORING PROGRAM REVIEWED*: Not Applicable *COPY OF PRESCRIPTION DRUG MONITORING REPORT IN PATIENT MILAN: Not Applicable Referrals: Milly Barrera, CATALOGUE LIBRARIAN [Primary Care Provider] - Forms: ED Department Discharge Sepsis Event Note - Focused Exam Vital Signs: Vital Signs Temp Pulse Resp BP Pulse Ox 05/23/19 15:15 77 18 159/66 H 94 L 05/23/19 14:45 80 18 148/59 H 95 05/23/19 14:15 77 18 149/57 H 95 05/23/19 13:45 79 20 150/55 H 97 05/23/19 13:11 37.7 C 84 20 154/64 H 94 L Date Exam was Performed: 05/23/19 Time Exam was Performed: 15:58 - My Orders Last 24 Hours: My Active Orders 05/23/19 13:13 Sodium Chloride 0.9% [Saline Flush] 10 ml FLUSH ASDIRECTED PRN 05/23/19 13:14 Chest 1V Frontal [CR] Stat Saline Lock Insert [OM.PC] Stat 05/23/19 13:19 RT Aerosol Therapy [RC] ASDIRECTED 05/23/19 14:00 BIPAP [RT BiPAP/CPAP] [RC] ASDIRECTED 05/23/19 14:03 RT Aerosol Therapy [RC] ASDIRECTED 05/23/19 14:25 Urinary Catheter Assessment [RC] ASDIRECTED 05/23/19 14:30 Cavazos Catheter Insertion [Insert Urinary Catheter] [OM.PC] Q24H - Assessment/Plan Last 24 Hours: My Active Orders 05/23/19 13:13 Sodium Chloride 0.9% [Saline Flush] 10 ml FLUSH ASDIRECTED PRN 05/23/19 13:14 Chest 1V Frontal [CR] Stat Saline Lock Insert [OM.PC] Stat 05/23/19 13:19 RT Aerosol Therapy [RC] ASDIRECTED 05/23/19 14:00 BIPAP [RT BiPAP/CPAP] [RC] ASDIRECTED 05/23/19 14:03 RT Aerosol Therapy [RC] ASDIRECTED 05/23/19 14:25 Urinary Catheter Assessment [RC] ASDIRECTED 05/23/19 14:30 Cavazos Catheter Insertion [Insert Urinary Catheter] [OM.PC] Q24H
[2019-05-23] MEDS ORDERED: cefTRIAXone 1 GM in Sodium Chloride 0.9% 100 ML IV ONE (13:19)
[2019-05-23] MEDS ORDERED: Albuterol/Ipratropium 3.0-0.5 MG/3 ML Neb Soln NEB ONE ×2 (13:19→14:03)
[2019-05-23] MEDS ORDERED: Azithromycin 500 MG in Sodium Chloride 0.9% 250 ML IV ONE (13:20)
[2019-05-23] MEDS ORDERED: methylPREDNISolone Sodium Succinate 125 MG/2 ML SDV IVPUSH ONE (13:21)
[2019-05-23 13:58] LABS: O2 DELIVERY DEVICE NON REBR MASK
[2019-05-23 13:59] LABS: CHLORIDE,CL 104 mmol/L (98-107); SODIUM,NA 137 mmol/L (136-145)
[2019-05-23 14:01] LABS: BASE EXCESS ARTERIAL -11 mmol/L (-2-3); BICARBONATE,ARTERIAL 15.6 mmol/L (22-26); O2 SATURATION ARTERIAL 95 % (95-98); PCO2 ARTERIAL 33 mmHG (35-45); PO2 ARTERIAL 84 mmHG (80-105)
[2019-05-23] MEDS ORDERED: Bumetanide 1 MG Tab PO ONE (14:25)
[2019-05-23 15:24] VITALS: BP 159/66; PULSE 77
== END 2019-05-23 15:40 ==
LOC: LL.ED 13:02
DX: I11.0 Hypertensive heart disease with heart failure (principal); I50.9 Heart failure, unspecified; N17.9 Acute kidney failure, unspecified; J44.1 Chronic obstructive pulmonary disease with (acute) exacerbation; R06.03 Acute respiratory distress; K21.9 Gastro-esophageal reflux disease without esophagitis; R33.9 Retention of urine, unspecified; E11.40 Type 2 diabetes mellitus with diabetic neuropathy, unspecified; E66.01 Morbid (severe) obesity due to excess calories; Z68.41 Body mass index [BMI] 40.0-44.9, adult; Z88.8 Allergy status to other drugs, medicaments and biological substances; Z88.0 Allergy status to penicillin; Z98.1 Arthrodesis status; Z86.14 Personal history of Methicillin resistant Staphylococcus aureus infection; Z79.899 Other long term (current) drug therapy; Z79.82 Long term (current) use of aspirin
CPT/HCPCS: 36415; 71045; 80053; 81001; 82803; 83605; 83735; 83880; 85025; 87804; 94640; 96365; 96367; 96375; 99285; A9270; J0456; J0696; J2930; J7050; J7620-GY

== ENCOUNTER 2019-06-03 07:31 | Inpatient (IN) | payer BC, MEDICARE ==
[2019-06-03] MEDS ORDERED: Acetaminophen 325 MG Tab PO PRN ×2 (15:12→16:00)
[2019-06-03] MEDS ORDERED: Bisacodyl 10 MG Supp RECTAL PRN (15:12)
[2019-06-03] MEDS ORDERED: Sennosides 8.6 MG Tab PO PRN (15:12)
--- NOTE | 2019-06-03 16:01 | PCM.HP.2 ---
H&P History of Present Illness - General Date of Service: 06/03/19 Admit Problem/Dx: Admission Diagnosis/Problem Admission Diagnosis/Problem Renal insufficiency Source of Information: Patient, Old Records History Limitations: Reports: No Limitations - History of Present Illness Initial Comments - Free Text/Narative: Pt admitted to swing bed for renal failure and wound care Has hx/o renal failure not on dialysis See previous H&P and discharge summary Duration of Symptoms: Reports: Chronic Location: Reports: Generalized Other HPI/Comments: Pt with hx/o chronic wounds receiving wound care and renal failure not on dialysis - Related Data Allergies/Adverse Reactions: Allergies Allergy/AdvReac Type Severity Reaction Status Date / Time atorvastatin [From Lipitor] Allergy Cannot Verified 06/03/19 15:27 Remember Penicillins Allergy Cannot Verified 06/03/19 15:27 Remember rosuvastatin [From Crestor] Allergy Cannot Verified 06/03/19 15:27 Remember simvastatin Allergy Cannot Verified 06/03/19 15:27 Remember ertapenem [From Invanz] AdvReac Hallucinati Verified 06/03/19 15:27 ons Home Medications: Home Meds Acetaminophen [Tylenol] 650 mg PO Q4H PRN 07/10/18 [History] Aspirin 81 mg PO DAILY 07/10/18 [History] Bumetanide [Bumex] 2 mg PO BID 07/20/18 [History] Multivitamins [Tab-A-Mayte] 1 tab PO DAILY #30 tablet 10/16/18 [Rx] Tamsulosin [Flomax] 0.4 mg PO DAILY #30 cap.er 10/16/18 [Rx] amLODIPine [Norvasc] 5 mg PO DAILY #30 tablet 10/16/18 [Rx] Carvedilol [Coreg] 50 mg PO BID 05/23/19 [History] Darbepoetin Shayne [Aranesp] 60 mcg SUBCUT Q7D 06/03/19 [History] Ferrous Sulfate 325 mg PO BIDPC 06/03/19 [History] Finasteride [Proscar] 5 mg PO DAILY 06/03/19 [History] Magnesium Oxide 400 mg PO DAILY 06/03/19 [History] Past Medical History HEENT History: Reports: Impaired Vision, Other (See Below) Other HEENT History: Missing teeth Cardiovascular History: Reports: Hypertension Respiratory History: Reports: None Gastrointestinal History: Reports: GERD, Hemorrhoids Genitourinary History: Reports: Acute Renal Failure, Retention, Urinary Musculoskeletal History: Reports: Other (See Below) Other Musculoskeletal History: Osteomyelitis Neurological History: Reports: Neuropathy, Diabetic Psychiatric History: Reports: None Endocrine/Metabolic History: Reports: Diabetes, Type II Hematologic History: Reports: Anemia Immunologic History: Reports: None Oncologic (Cancer) History: Reports: None Dermatologic History: Reports: Other (See Below) Other Dermatologic History: 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 - Infectious Disease History Infectious Disease History: Reports: Chicken Pox, Measles, MRSA, Mumps - Past Surgical History HEENT Surgical History: Reports: LASIK Other HEENT Surgeries/Procedures: left eye GI Surgical History: Reports: Colonoscopy Neurological Surgical History: Reports: C-Spine, Spinal Fusion Other Neurological Surgeries/Procedures: C-4-5-6 fusion, mesh tx 2005 Musculoskeletal Surgical History: Reports: Other (See Below) Other Musculoskeletal Surgeries/Procedures:: right foot 5th toe ampution 2016 Social & Family History - Family History Family Medical History: Unobtainable - Tobacco Use Smoking Status *Q: Former Smoker Years of Tobacco use: 25 Used Tobacco, but Quit: Yes Month/Year Tobacco Last Used: 1984 Second Hand Smoke Exposure: No - Caffeine Use Caffeine Use: Reports: Coffee, Soda - Recreational Drug Use Recreational Drug Use: No H&P Review of Systems - Review of Systems: Review Of Systems: See Below General: Reports: Weakness HEENT: Reports: No Symptoms Pulmonary: Reports: No Symptoms Cardiovascular: Reports: No Symptoms Gastrointestinal: Reports: No Symptoms Musculoskeletal: Reports: Other (Chronic lower extremities and foot wounds) Skin: Reports: Other (Chronic wounds) Exam - Exam Exam: See Below - Vital Signs Weight: 123.5 kg - Exam General: Alert, Oriented Lungs: Clear to Auscultation Cardiovascular: Regular Rate GI/Abdominal Exam: Non-Tender Extremities: Other (Wound dressings in place) Neuro Extensive - Mental Status: Alert, Oriented x3 *Q Meaningful Use (ADM) - VTE *Q VTE Mechanical Contraindications *Q: Bilat Lower Injury/Burn VTE Pharmacological Contraindications *Q: Renal Impairment - VTE Risk Assess *Q Each Risk Factor Represents 1 Point: Swollen Legs, Current, Other Risk Factor Total Score 1 Point Risk Factors: 2 Problem List Initiated/Reviewed/Updated: Yes Orders Last 24hrs: Active Orders 24 hr Category Date Time Status Patient Status [ADT] Routine ADT 06/03/19 15:13 Active Ambulate [RC] ASDIRECTED Care 06/03/19 15:12 Active Height and Weight [RC] PER UNIT ROUTINE Care 06/03/19 15:16 Active May Shower [RC] ASDIRECTED Care 06/03/19 15:12 Active Oxygen Therapy [RC] .PRN Care 06/03/19 15:13 Active Up With Assistance [RC] ASDIRECTED Care 06/03/19 15:12 Active VTE/DVT Education [RC] PER UNIT ROUTINE Care 06/03/19 15:13 Active Vital Signs [RC] PER UNIT ROUTINE Care 06/03/19 15:13 Active Wound Care [RC] DAILY Care 06/03/19 15:12 Active Consult to Case Management/Undercollar Maker [CONS] Cons 06/03/19 15:12 Active Routine Consult to Residence Hall Director [CONS] Routine Cons 06/03/19 15:12 Active OT Evaluation and Treatment [CONS] Routine Cons 06/03/19 15:12 Active PT Evaluation and Treatment [CONS] Routine Cons 06/03/19 15:12 Active Regular Diet [DIET] Diet 06/03/19 Dinner Active CBC WITH AUTO DIFF [HEME] Routine Lab 06/09/19 15:12 Ordered COMPREHENSIVE METABOLIC PN,CMP [CHEM] Routine Lab 06/09/19 15:12 Ordered Acetaminophen [Tylenol] Med 06/03/19 15:12 Ordered 650 mg PO Q4H PRN Acetaminophen [Tylenol] Med 06/03/19 15:25 Ordered 650 mg PO Q4H PRN Aspirin Med 06/04/19 08:00 Ordered 81 mg PO DAILY Bumetanide [Bumex] Med 06/03/19 18:00 Ordered 2 mg PO BID Darbepoetin Shayne [Aranesp] Med 06/03/19 15:30 Ordered 60 mcg SUBCUT Q7D Ferrous Sulfate Med 06/03/19 18:30 Ordered 325 mg PO BIDPC Finasteride [Proscar] Med 06/04/19 08:00 Ordered 5 mg PO DAILY Magnesium Oxide Med 06/04/19 08:00 Ordered 400 mg PO DAILY Multivitamins [Tab-A-Mayte] Med 06/04/19 08:00 Ordered 1 tab PO DAILY Pantoprazole [ProTONIX] Med 06/04/19 07:30 Ordered 40 mg PO ACBREAKFAST Sennosides [Senna] Med 06/03/19 15:12 Ordered 1 mg PO BID PRN Tamsulosin [Flomax] Med 06/04/19 08:00 Ordered 0.4 mg PO DAILY amLODIPine [Norvasc] Med 06/04/19 08:00 Ordered 5 mg PO DAILY bisacodyL [Dulcolax] Med 06/03/19 15:12 Ordered 10 mg RECTAL DAILY PRN carvediloL [Coreg] Med 06/03/19 18:00 Ordered 50 mg PO BID hydrALAZINE [Apresoline] Med 06/03/19 16:00 Ordered 75 mg PO Q8H Code Status [Resuscitation Status] Routine Resus Stat 06/03/19 15:31 Ordered Medication Orders Acetaminophen (Tylenol) 650 mg PO Q4H PRN PRN Reason: Pain (Mild 1-3)/fever Acetaminophen (Tylenol) 650 mg PO Q4H PRN PRN Reason: Pain/Fever Amlodipine Besylate (Norvasc) 5 mg PO DAILY [facility] Aspirin (Aspirin) 81 mg PO DAILY [facility] Bisacodyl (Dulcolax) 10 mg RECTAL DAILY PRN PRN Reason: Constipation Bumetanide (Bumex) 2 mg PO BID [facility] Carvedilol (Coreg) 50 mg PO BID [facility] Ferrous Sulfate (Ferrous Sulfate) 325 mg PO BIDPC [place] Finasteride (Proscar) 5 mg PO DAILY [facility] Hydralazine HCl (Apresoline) 75 mg PO Q8H [facility] Magnesium Oxide (Magnesium Oxide) 400 mg PO DAILY [facility] Multivitamins/Minerals/Vitamin C (Tab-A-Mayte) 1 tab PO DAILY [facility] Non-Formulary Medication (Darbepoetin Shayne [Aranesp]) 60 mcg SUBCUT Q7D [facility] Pantoprazole Sodium (Protonix) 40 mg PO ACBREAKFAST [facility] Senna (Senna) 1 mg PO BID PRN PRN Reason: Constipation Tamsulosin HCl (Flomax) 0.4 mg PO DAILY [facility] Assessment/Plan Comment:: IMP: Renal failure Lower extremity wounds Plan: Continue wound Care - Mortality Measure Prognosis:: Poor
[2019-06-03] MEDS: Ferrous Sulfate 325 MG Tab PO SCH (18:45)
[2019-06-03] MEDS: Carvedilol 25 MG Tab PO SCH (18:45)
[2019-06-03] MEDS: hydrALAZINE 50 MG Tab PO SCH (20:18)
[2019-06-04] MEDS: Finasteride 5 MG Tab PO SCH (08:15)
[2019-06-04] MEDS: Tamsulosin 0.4 MG Cap.ER PO SCH (08:15)
[2019-06-04] MEDS: Carvedilol 25 MG Tab PO SCH ×2 (08:16→17:10)
[2019-06-04] MEDS: Pantoprazole 40 MG Tab.CR PO SCH (08:16)
[2019-06-04] MEDS: hydrALAZINE 50 MG Tab PO SCH ×3 (08:16→21:06)
[2019-06-04] MEDS: Bumetanide 1 MG Tab PO SCH ×2 (08:17→17:08)
[2019-06-04] MEDS: amLODIPine 5 MG Tab PO SCH (08:17)
[2019-06-04] MEDS: Multivitamin Tab PO SCH (08:23)
[2019-06-04] MEDS: Magnesium Oxide 400 MG Tab PO SCH (08:23)
[2019-06-04] MEDS: Ferrous Sulfate 325 MG Tab PO SCH ×2 (08:23→18:30)
[2019-06-04] MEDS: Aspirin 81 MG Tab.Chew PO SCH (08:23)
[2019-06-05] MEDS: Ferrous Sulfate 325 MG Tab PO SCH ×2 (09:47→17:46)
[2019-06-05] MEDS: Magnesium Oxide 400 MG Tab PO SCH (09:47)
[2019-06-05] MEDS: Multivitamin Tab PO SCH (09:47)
[2019-06-05] MEDS: Tamsulosin 0.4 MG Cap.ER PO SCH (09:47)
[2019-06-05] MEDS: Aspirin 81 MG Tab.Chew PO SCH (09:47)
[2019-06-05] MEDS: Finasteride 5 MG Tab PO SCH (09:47)
[2019-06-05] MEDS: Carvedilol 25 MG Tab PO SCH ×2 (09:48→17:47)
[2019-06-05] MEDS: hydrALAZINE 50 MG Tab PO SCH ×3 (09:48→19:56)
[2019-06-05] MEDS: Pantoprazole 40 MG Tab.CR PO SCH (09:48)
[2019-06-05] MEDS: amLODIPine 5 MG Tab PO SCH (09:49)
[2019-06-05] MEDS: Bumetanide 1 MG Tab PO SCH ×2 (09:49→16:09)
--- NOTE | 2019-06-05 10:01 | PCM.SN ---
- Free Text/Narrative Note: Patient lab results were reviewed as critical results were obtained. Hgb 7.5, Hct 24.6 and Cr 4.36. These are slight improvements from patient's hospital stay at [place]. We will repeat labs in 4 days to determine further improvement or decline.
[2019-06-06] MEDS: hydrALAZINE 50 MG Tab PO SCH ×3 (09:36→19:34)
[2019-06-06] MEDS: Carvedilol 25 MG Tab PO SCH ×2 (09:37→17:15)
[2019-06-06] MEDS: Finasteride 5 MG Tab PO SCH (09:37)
[2019-06-06] MEDS: Bumetanide 1 MG Tab PO SCH ×2 (09:37→16:20)
[2019-06-06] MEDS: Tamsulosin 0.4 MG Cap.ER PO SCH (09:37)
[2019-06-06] MEDS: amLODIPine 5 MG Tab PO SCH (09:38)
[2019-06-06] MEDS: Pantoprazole 40 MG Tab.CR PO SCH (09:38)
[2019-06-06] MEDS: Aspirin 81 MG Tab.Chew PO SCH (09:45)
[2019-06-06] MEDS: Ferrous Sulfate 325 MG Tab PO SCH ×3 (09:45→17:30)
[2019-06-06] MEDS: Multivitamin Tab PO SCH (09:45)
[2019-06-06] MEDS: Magnesium Oxide 400 MG Tab PO SCH (09:45)
[2019-06-07] MEDS: Aspirin 81 MG Tab.Chew PO SCH (08:40)
[2019-06-07] MEDS: Multivitamin Tab PO SCH (08:40)
[2019-06-07] MEDS: Magnesium Oxide 400 MG Tab PO SCH (08:40)
[2019-06-07] MEDS: Ferrous Sulfate 325 MG Tab PO SCH ×2 (08:40→17:46)
[2019-06-07] MEDS: Bumetanide 1 MG Tab PO SCH ×2 (08:41→16:14)
[2019-06-07] MEDS: hydrALAZINE 50 MG Tab PO SCH ×3 (08:41→19:52)
[2019-06-07] MEDS: Tamsulosin 0.4 MG Cap.ER PO SCH (08:42)
[2019-06-07] MEDS: Carvedilol 25 MG Tab PO SCH ×2 (08:42→17:47)
[2019-06-07] MEDS: Finasteride 5 MG Tab PO SCH (08:42)
[2019-06-07] MEDS: Pantoprazole 40 MG Tab.CR PO SCH (08:43)
[2019-06-07] MEDS: amLODIPine 5 MG Tab PO SCH (08:43)
[2019-06-08] MEDS: Magnesium Oxide 400 MG Tab PO SCH (08:02)
[2019-06-08] MEDS: hydrALAZINE 50 MG Tab PO SCH ×3 (08:02→19:14)
[2019-06-08] MEDS: Aspirin 81 MG Tab.Chew PO SCH (08:02)
[2019-06-08] MEDS: Ferrous Sulfate 325 MG Tab PO SCH ×2 (08:02→17:55)
[2019-06-08] MEDS: Multivitamin Tab PO SCH (08:02)
[2019-06-08] MEDS: Carvedilol 25 MG Tab PO SCH ×2 (08:03→16:59)
[2019-06-08] MEDS: Bumetanide 1 MG Tab PO SCH ×2 (08:03→16:59)
[2019-06-08] MEDS: Finasteride 5 MG Tab PO SCH (08:03)
[2019-06-08] MEDS: Pantoprazole 40 MG Tab.CR PO SCH (08:03)
[2019-06-08] MEDS: amLODIPine 5 MG Tab PO SCH (08:03)
[2019-06-08] MEDS: Tamsulosin 0.4 MG Cap.ER PO SCH (08:03)
[2019-06-09] MEDS: Multivitamin Tab PO SCH (07:28)
[2019-06-09] MEDS: Aspirin 81 MG Tab.Chew PO SCH (07:28)
[2019-06-09] MEDS: Ferrous Sulfate 325 MG Tab PO SCH ×3 (07:28→18:10)
[2019-06-09] MEDS: Magnesium Oxide 400 MG Tab PO SCH (07:28)
[2019-06-09] MEDS: hydrALAZINE 50 MG Tab PO SCH ×3 (07:29→21:06)
[2019-06-09] MEDS: Carvedilol 25 MG Tab PO SCH ×2 (07:29→18:10)
[2019-06-09] MEDS: Bumetanide 1 MG Tab PO SCH ×2 (07:29→16:52)
[2019-06-09] MEDS: amLODIPine 5 MG Tab PO SCH (07:30)
[2019-06-09] MEDS: Tamsulosin 0.4 MG Cap.ER PO SCH (07:30)
[2019-06-09] MEDS: Finasteride 5 MG Tab PO SCH (07:30)
[2019-06-09] MEDS: Pantoprazole 40 MG Tab.CR PO SCH (07:30)
[2019-06-10] MEDS: Magnesium Oxide 400 MG Tab PO SCH (08:00)
[2019-06-10] MEDS: Multivitamin Tab PO SCH (08:01)
[2019-06-10] MEDS: hydrALAZINE 50 MG Tab PO SCH ×3 (08:01→19:48)
[2019-06-10] MEDS: Aspirin 81 MG Tab.Chew PO SCH (08:01)
[2019-06-10] MEDS: Ferrous Sulfate 325 MG Tab PO SCH ×2 (08:01→18:01)
[2019-06-10] MEDS: Pantoprazole 40 MG Tab.CR PO SCH (08:02)
[2019-06-10] MEDS: Tamsulosin 0.4 MG Cap.ER PO SCH (08:02)
[2019-06-10] MEDS: amLODIPine 5 MG Tab PO SCH (08:02)
[2019-06-10] MEDS: Carvedilol 25 MG Tab PO SCH ×2 (08:02→18:03)
[2019-06-10] MEDS: Finasteride 5 MG Tab PO SCH (08:02)
[2019-06-10] MEDS: Bumetanide 1 MG Tab PO SCH ×2 (08:03→18:01)
[2019-06-11] MEDS: hydrALAZINE 50 MG Tab PO SCH ×3 (07:39→19:34)
[2019-06-11] MEDS: Pantoprazole 40 MG Tab.CR PO SCH (07:40)
[2019-06-11] MEDS: amLODIPine 5 MG Tab PO SCH (07:40)
[2019-06-11] MEDS: Finasteride 5 MG Tab PO SCH (07:41)
[2019-06-11] MEDS: Tamsulosin 0.4 MG Cap.ER PO SCH (07:41)
[2019-06-11] MEDS: Bumetanide 1 MG Tab PO SCH ×2 (07:42→16:31)
[2019-06-11] MEDS: Carvedilol 25 MG Tab PO SCH ×2 (07:42→17:27)
[2019-06-11] MEDS: Ferrous Sulfate 325 MG Tab PO SCH ×2 (07:44→17:29)
[2019-06-11] MEDS: Multivitamin Tab PO SCH (07:44)
[2019-06-11] MEDS: Magnesium Oxide 400 MG Tab PO SCH (07:44)
[2019-06-11] MEDS: Aspirin 81 MG Tab.Chew PO SCH (07:44)
[2019-06-11] MEDS ORDERED: DARBEPOETIN ALFA SUBCUT SCH (18:00)
[2019-06-12] MEDS: Multivitamin Tab PO SCH (08:21)
[2019-06-12] MEDS: Finasteride 5 MG Tab PO SCH (08:21)
[2019-06-12] MEDS: Magnesium Oxide 400 MG Tab PO SCH (08:21)
[2019-06-12] MEDS: Aspirin 81 MG Tab.Chew PO SCH (08:21)
[2019-06-12] MEDS: Ferrous Sulfate 325 MG Tab PO SCH ×2 (08:21→17:42)
[2019-06-12] MEDS: Carvedilol 25 MG Tab PO SCH ×2 (08:22→17:42)
[2019-06-12] MEDS: hydrALAZINE 50 MG Tab PO SCH ×3 (08:22→21:29)
[2019-06-12] MEDS: Pantoprazole 40 MG Tab.CR PO SCH (08:22)
[2019-06-12] MEDS: Tamsulosin 0.4 MG Cap.ER PO SCH (08:22)
[2019-06-12] MEDS: amLODIPine 5 MG Tab PO SCH (08:23)
[2019-06-12] MEDS: Bumetanide 1 MG Tab PO SCH ×2 (08:23→15:38)
[2019-06-12] MEDS ORDERED: Calcitriol 0.25 MCG Cap PO SCH (08:45)
--- NOTE | 2019-06-12 14:24 | PCM.DCSUM1 ---
Discharge Summary - Hospital Course Free Text/Narrative:: Patient was admitted to [facility] for a short rehabilitation stay. He was seen in the ER and transferred due to [facility] due to weakness, lethargy and illness. He was evaluated at [facility] and treated. He was noted to have elevated BNP and creatinine level with a low hemoglobin level. These are related to his CKD. He is refusing dialysis at this time. He did elect to go forward with the Aranesp injections for support. Patient completed rehab with PT and OT. He is doing well and wanting to go home. He refuses to have services and wants to go home with family. He ascertains that his family can care for him. They will complete his Aranesp injections at home. He has a follow up with Nephrology in June, who will monitor his lab levels. 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 [CONS] Routine Consult to [employer] [CONS] Routine OT Evaluation and Treatment [CONS] Routine PT Evaluation and Treatment [CONS] Routine - Patient Instructions Diet: Diabetic Diet Activity: As Tolerated Showering/Bathing: September Shower - Discharge Plan *PRESCRIPTION DRUG MONITORING PROGRAM REVIEWED*: Not Applicable *COPY OF PRESCRIPTION DRUG MONITORING REPORT IN PATIENT MILAN: Not Applicable Prescriptions/Med Rec: hydrALAZINE [Apresoline] 75 mg PO TID@0800,1600,2000 30 Days #90 tablet Home Medications: Home Meds Acetaminophen [Tylenol] 650 mg PO Q4H PRN 07/10/18 [History] Aspirin 81 mg PO DAILY 07/10/18 [History] Bumetanide [Bumex] 2 mg PO BID 07/20/18 [History] Multivitamins [Tab-A-Mayte] 1 tab PO DAILY #30 tablet 10/16/18 [Rx] Tamsulosin [Flomax] 0.4 mg PO DAILY #30 cap.er 10/16/18 [Rx] amLODIPine [Norvasc] 5 mg PO DAILY #30 tablet 10/16/18 [Rx] Carvedilol [Coreg] 50 mg PO BID 05/23/19 [History] Darbepoetin Shayne [Aranesp] 60 mcg SUBCUT Q7D 06/03/19 [History] Ferrous Sulfate 325 mg PO BIDPC 06/03/19 [History] Finasteride [Proscar] 5 mg PO DAILY 06/03/19 [History] Magnesium Oxide 400 mg PO DAILY 06/03/19 [History] calcitrioL [Rocaltrol] 0.25 mcg PO Q48H cap 06/12/19 [Rx] hydrALAZINE [Apresoline] 75 mg PO TID@0800,1600,1999 30 Days #90 tablet [Rx] Oxygen Therapy Mode: Room Air - Discharge Summary/Plan Comment DC Time >30 min.: No - General Info Date of Service: 06/12/19 Admission Dx/Problem (Free Text: Renal insufficiency Functional Status: Reports: Pain Controlled - Review of Systems General: Reports: No Symptoms HEENT: Reports: No Symptoms, Glasses Pulmonary: Reports: No Symptoms Cardiovascular: Reports: No Symptoms Gastrointestinal: Reports: No Symptoms Genitourinary: Reports: No Symptoms Musculoskeletal: Reports: No Symptoms Skin: Reports: No Symptoms Neurological: Reports: No Symptoms Psychiatric: Reports: No Symptoms - Patient Data Vitals - Most Recent: Last Vital Signs Temp 98.6 F 06/12/19 08:00 Pulse 75 06/12/19 08:22 Resp 16 06/12/19 08:00 BP 146/62 H 06/12/19 08:23 Pulse Ox 96 06/12/19 08:00 Weight - Most Recent: 264 lb I&O - Last 24 hours: Intake & Output 06/11/19 06/12/19 06/12/19 22:59 06:59 14:59 Intake Total 840 300 240 Output Total 300 200 Balance 540 100 240 Med Orders - Current: Current Medications Acetaminophen (Tylenol) 650 mg PO Q4H PRN PRN Reason: Pain/Fever Amlodipine Besylate (Norvasc) 5 mg PO DAILY COUNT INCLUDES THE [facility] Last Admin: 06/12/19 08:23 Dose: 5 mg Aspirin (Aspirin) 81 mg PO DAILY COUNT INCLUDES THE [facility] Last Admin: 06/12/19 08:21 Dose: 81 mg Bisacodyl (Dulcolax) 10 mg RECTAL DAILY PRN PRN Reason: Constipation Bumetanide (Bumex) 2 mg PO BID@0800,1600 COUNT INCLUDES THE [facility] Last Admin: 06/12/19 08:23 Dose: 2 mg Calcitriol (Rocaltrol) 0.25 mcg PO Q48H COUNT INCLUDES THE [facility] Last Admin: 06/12/19 09:48 Dose: 0.25 mcg Carvedilol (Coreg) 50 mg PO BID COUNT INCLUDES THE [facility] Last Admin: 06/12/19 08:22 Dose: 50 mg Ferrous Sulfate (Ferrous Sulfate) 325 mg PO BIDPC COUNT INCLUDES THE [facility] Last Admin: 06/12/19 08:21 Dose: 325 mg Finasteride (Proscar) 5 mg PO DAILY COUNT INCLUDES THE [facility] Last Admin: 06/12/19 08:21 Dose: 5 mg Hydralazine HCl (Apresoline) 75 mg PO TID@0800,1600,2000 COUNT INCLUDES THE [facility] Last Admin: 06/12/19 08:22 Dose: 75 mg Magnesium Oxide (Magnesium Oxide) 400 mg PO DAILY COUNT INCLUDES THE [facility] Last Admin: 06/12/19 08:21 Dose: 400 mg Multivitamins/Minerals/Vitamin C (Tab-A-Mayte) 1 tab PO DAILY COUNT INCLUDES THE [facility] Last Admin: 06/12/19 08:21 Dose: 1 tab Darbepoetin Shayne [ (Aranesp] 60 Mcg) 60 mcg SUBCUT Q7D COUNT INCLUDES THE [facility] Last Admin: 06/11/19 17:28 Dose: Not Given Pantoprazole Sodium (Protonix) 40 mg PO DAILY COUNT INCLUDES THE [facility] Last Admin: 06/12/19 08:22 Dose: 40 mg Senna (Senna) 8.6 mg PO BID PRN PRN Reason: Constipation Tamsulosin HCl (Flomax) 0.4 mg PO DAILY COUNT INCLUDES THE [facility] Last Admin: 06/12/19 08:22 Dose: 0.4 mg Discontinued Medications Influenza Virus Vaccine (Fluzone High-Dose Syringe) 180 mcg IM .ONCE ONE Stop: 06/04/19 16:01 Last Admin: 06/04/19 17:09 Dose: 180 mcg - Exam General: Reports: Alert, Oriented HEENT: Reports: Pupils Equal, Pupils Reactive, Mucous Membr. Moist/[place] Neck: Reports: Supple Lungs: Reports: Clear to Auscultation, Normal Respiratory Effort Cardiovascular: Reports: Regular Rate, Regular Rhythm, No Murmurs GI/Abdominal Exam: Normal Bowel Sounds, Soft, Non-Tender (Male) Exam: Deferred Rectal (Males) Exam: Deferred Extremities: Normal Inspection, Normal Range of Motion, Normal Capillary Refill Skin: Reports: Warm, Dry, Intact Neurological: Reports: No New Focal Deficit Psy/Mental Status: Reports: Alert, Normal Affect, Normal Mood *Q Meaningful Use (DIS) - VTE *Q VTE Mechanical Contraindications *Q: Bilat Lower Injury/Burn VTE Pharmacological Contraindications *Q: Renal Impairment
[2019-06-12 21:27] VITALS: BP 149/64; PULSE 73
[2019-06-25] MEDS ORDERED: DARBEPOETIN ALFA SUBCUT SCH (08:00)
== END 2019-06-13 06:45 | disposition home or self-care (01) | DRG 470 ==
LOC: LL.MS 15:03
PROVIDERS: ADMIT Family Medicine; ATTEND Family Medicine
DX: I12.9 Hypertensive chronic kidney disease with stage 1 through stage 4 chronic kidney disease, or unspecified chronic kidney disease (principal); N18.9 Chronic kidney disease, unspecified; H54.7 Unspecified visual loss; K21.9 Gastro-esophageal reflux disease without esophagitis; E11.40 Type 2 diabetes mellitus with diabetic neuropathy, unspecified; E11.22 Type 2 diabetes mellitus with diabetic chronic kidney disease; M86.9 Osteomyelitis, unspecified; Z98.1 Arthrodesis status; Z87.891 Personal history of nicotine dependence; Z88.0 Allergy status to penicillin; Z88.8 Allergy status to other drugs, medicaments and biological substances; Z79.82 Long term (current) use of aspirin; Z79.899 Other long term (current) drug therapy
CPT/HCPCS: 36415; 80048; 80053; 83880; 85025; 90662; 97110-GO; 97110-GP; 97162-GP; 97165-GO; 97530-GO; 97530-GP; 97535-GO; A9270-GY

== ENCOUNTER 2021-08-26 17:15 | Emergency (ER) | payer BC, MEDICARE ==
[2021-08-26] MEDS ORDERED: Cefepime 2 GM in Sodium Chloride 0.9% 50 ML IV ONE (17:57)
[2021-08-26] MEDS ORDERED: Sodium Chloride 0.9% 1,000 ML IV ONE (17:57)
[2021-08-26] MEDS ORDERED: Acetaminophen 325 MG Tab PO ONE (18:02)
[2021-08-26] MEDS ORDERED: Cefepime 1 GM in Sodium Chloride 0.9% 50 ML IV ONE (18:41)
[2021-08-26] MEDS ORDERED: Sodium Chloride 0.9% 1,000 ML IV SCH (18:45)
[2021-08-26] MEDS ORDERED: Cefepime 2 GM Vial ONE (18:49)
[2021-08-26 19:24] LABS: ANION GAP 14.2 meq/L (7-15)
[2021-08-26] MEDS ORDERED: Norepinephrine 4 MG in Dextrose 5% in Water 246 ML IV SCH ×2 (19:45)
[2021-08-26] MEDS: Sodium Chloride 0.9% 10 ML Syringe FLUSH PRN ×2 (20:27→21:17)
[2021-08-26] MEDS ORDERED: diphenhydrAMINE 50 MG/ML SDV IVPUSH ONE (20:57)
[2021-08-27 02:08] VITALS: BP 95/47; PULSE 132
== END 2021-08-26 22:05 ==
LOC: LL.ED 17:15 → SUPCPDRO 17:15 → LL.ED 22:05
DX: A41.9 Sepsis, unspecified organism (principal); L03.116 Cellulitis of left lower limb; E11.621 Type 2 diabetes mellitus with foot ulcer; L97.429 Non-pressure chronic ulcer of left heel and midfoot with unspecified severity; E11.22 Type 2 diabetes mellitus with diabetic chronic kidney disease; I12.9 Hypertensive chronic kidney disease with stage 1 through stage 4 chronic kidney disease, or unspecified chronic kidney disease; N18.9 Chronic kidney disease, unspecified; K21.9 Gastro-esophageal reflux disease without esophagitis; Z88.0 Allergy status to penicillin; Z88.8 Allergy status to other drugs, medicaments and biological substances; Z79.899 Other long term (current) drug therapy; Z20.822 Contact with and (suspected) exposure to COVID-19
CPT/HCPCS: 36415; 71045; 73620-LT; 74176; 80053; 83605; 83735; 83880; 84484; 85025; 85610; 85652; 86140; 87040; 87426; 93005; 93010; 96365; 96367; 96375; 99284; 99285-25; A9270-GY; J0692; J1200; J3370; J3490; J7030; J7050; J7060

== ENCOUNTER 2023-04-27 17:01 | Emergency (ER) | payer OTHER, MEDICARE ==
[2023-04-27 17:47] LABS: BASOPHILS ABSOLUTE AUTO 0.02 K/uL (0.00-0.20); BASOPHILS PERCENT AUTO 0.2 % (0.0-2.0); EOSINOPHILS ABSOLUTE AUTO 0.07 K/uL (0.00-0.50); EOSINOPHILS PERCENT AUTO 0.8 % (0.0-5.0); HEMATOCRIT 34.3 % (39.0-49.0); LYMPHOCYTES ABSOLUTE AUTO 0.79 K/uL (0.50-3.50); LYMPHOCYTES PERCENT AUTO 8.9 % (10.0-50.0); MEAN CORPUSCULAR HEMOGLOBIN 32.3 pg (28.2-33.3); MEAN CORPUSCULAR HGB CONC 32.1 g/dL (31.7-36.0); MEAN CORPUSCULAR VOLUME 100.6 fL (84.0-98.0); MONOCYTES ABSOLUTE AUTO 0.78 K/uL (0.00-1.00); MONOCYTES PERCENT AUTO 8.8 % (2.0-14.0); NEUTROPHILS ABSOLUTE AUTO 7.23 K/uL (1.40-7.00); NEUTROPHILS PERCENT AUTO 81.3 % (45.0-80.0); PLATELET COUNT,PLT 195 K/uL (150-350); RED BLOOD CELL COUNT 3.41 M/uL (4.33-5.41); RED CELL DISTRIBUTION WIDTH 15.1 % (11.2-14.1); WHITE BLOOD CELL COUNT,WBC 8.9 K/uL (4.0-10.2)
[2023-04-27 18:00] LABS: INR 1.2
[2023-04-27 18:02] LABS: ALBUMIN 3.2 g/dL (3.4-5.0); ANION GAP 19.3 meq/L (7-15); BILIRUBIN TOTAL 0.5 mg/dL (0.2-1.0); CALCIUM 9.1 mg/dL (8.5-10.1); CARBON DIOXIDE,CO2 28.7 mmol/L (21.0-32.0); EST CRCL DRUG DOSING (CG) 13.15 mL/min; PHOSPHORUS 6.5 mg/dL (2.6-4.7); PROTEIN TOTAL,TP 7.7 g/dL (6.4-8.2)
[2023-04-27 18:03] LABS: CREATININE 5.57 mg/dL (0.51-1.17)
[2023-04-27 21:06] VITALS: BP 145/86; PULSE 88
== END 2023-04-27 21:45 ==
LOC: LL.ED 17:01
DX: R53.1 Weakness (principal); R26.81 Unsteadiness on feet; K21.9 Gastro-esophageal reflux disease without esophagitis; E10.9 Type 1 diabetes mellitus without complications; Z88.0 Allergy status to penicillin; Z88.8 Allergy status to other drugs, medicaments and biological substances; Z79.899 Other long term (current) drug therapy; Z87.891 Personal history of nicotine dependence; W19.XXXA Unspecified fall, initial encounter
CPT/HCPCS: 36415; 36416; 80053; 83735; 84100; 85025; 85610; 87070; 87186; 87205; 99284; 99285

== ENCOUNTER 2024-07-08 06:44 | Emergency (ER) | payer OTHER ==
[2024-07-08 07:31] LABS: BASOPHILS ABSOLUTE AUTO 0.02 K/uL (0.00-0.20); BASOPHILS PERCENT AUTO 0.2 % (0.0-2.0); EOSINOPHILS ABSOLUTE AUTO 0.01 K/uL (0.00-0.50); EOSINOPHILS PERCENT AUTO 0.1 % (0.0-5.0); HEMATOCRIT 34.1 % (39.0-49.0); HEMOGLOBIN 10.9 g/dL (13.1-16.8); IMMATURE GRAN ABSOLUTE AUTO 0.05 10^3/uL (0.00-0.04); IMMATURE GRAN PERCENT AUTO 0.6 % (0.0-0.4); LYMPHOCYTES ABSOLUTE AUTO 0.39 K/uL (0.50-3.50); LYMPHOCYTES PERCENT AUTO 4.3 % (10.0-50.0); MEAN CORPUSCULAR HEMOGLOBIN 28.2 pg (28.2-33.3); MEAN CORPUSCULAR VOLUME 88.3 fL (84.0-98.0); MONOCYTES PERCENT AUTO 7.8 % (2.0-14.0); NEUTROPHILS ABSOLUTE AUTO 7.85 K/uL (1.40-7.00); PLATELET COUNT,PLT 154 K/uL (150-350); RED BLOOD CELL COUNT 3.86 M/uL (4.33-5.41); RED CELL DISTRIBUTION WIDTH 17.5 % (11.2-14.1)
[2024-07-08 07:53] LABS: ALANINE AMINOTRANSFERASE,ALT 17 U/L (12-78); ALBUMIN 3.5 g/dL (3.4-5.0); ALKALINE PHOSPHATASE 83 IU/L (46-116); ASPARTATE AMNIOTRANSFERASE,AST 23 U/L (15-37); BILIRUBIN TOTAL 0.9 mg/dL (0.2-1.0); BLOOD UREA NITROGEN,BUN 54 mg/dL (7-18); CALCIUM 9.5 mg/dL (8.5-10.1); CARBON DIOXIDE,CO2 27.4 mmol/L (21.0-32.0); CHLORIDE,CL 94 mmol/L (98-107); GLUCOSE RANDOM 79 mg/dL (70-99); POTASSIUM,K 5.5 mmol/L (3.5-5.1); PROTEIN TOTAL,TP 7.6 g/dL (6.4-8.2); SODIUM,NA 140 mmol/L (136-145)
[2024-07-08 07:54] LABS: ANION GAP 24.1 meq/L (7-15); CREATININE 7.43 mg/dL (0.51-1.17); ESTIMATED GFR 7 mL/min (>=60)
[2024-07-08] MEDS: Metoprolol Tartrate 25 MG Tab PO ONE (09:06)
[2024-07-08 09:11] LABS: MAGNESIUM 1.7 mg/dL (1.8-2.4); PHOSPHORUS 7.1 mg/dL (2.6-4.7)
[2024-07-08 09:19] VITALS: BP 125/60; PULSE 89
[2024-07-08 09:42] LABS: INR 1.5 (0.9-1.1)
[2024-07-08 09:53] LABS: PTT,PARTIAL THROMBOPLSTIN TIME 29.5 SEC (23.6-29.8)
== END 2024-07-08 10:10 ==
LOC: LL.ED 06:44
DX: I12.9 Hypertensive chronic kidney disease with stage 1 through stage 4 chronic kidney disease, or unspecified chronic kidney disease (principal); N18.9 Chronic kidney disease, unspecified; K21.9 Gastro-esophageal reflux disease without esophagitis; E78.00 Pure hypercholesterolemia, unspecified; E11.9 Type 2 diabetes mellitus without complications; Z88.0 Allergy status to penicillin; Z88.8 Allergy status to other drugs, medicaments and biological substances; Z79.899 Other long term (current) drug therapy; Z87.891 Personal history of nicotine dependence
CPT/HCPCS: 36415; 71045; 80053; 83735; 84100; 84484; 85025; 85610; 85730; 87428-QW; 93005; 93010; 99284; 99285; A9270-GY

== ENCOUNTER 2024-11-11 17:56 | Emergency (ER) | payer OTHER ==
[2024-11-11] MEDS: Sodium Chloride 0.9% 1,000 ML IV SCH (18:50)
[2024-11-11 18:51] LABS: BASOPHILS ABSOLUTE AUTO 0.06 K/uL (0.00-0.20); BASOPHILS PERCENT AUTO 0.7 % (0.0-2.0); EOSINOPHILS ABSOLUTE AUTO 0.07 K/uL (0.00-0.50); EOSINOPHILS PERCENT AUTO 0.8 % (0.0-5.0); IMMATURE GRAN ABSOLUTE AUTO 0.13 10^3/uL (0.00-0.04); IMMATURE GRAN PERCENT AUTO 1.4 % (0.0-0.4); LYMPHOCYTES ABSOLUTE AUTO 1.21 K/uL (0.50-3.50); LYMPHOCYTES PERCENT AUTO 13.3 % (10.0-50.0); MEAN CORPUSCULAR HEMOGLOBIN 29.9 pg (28.2-33.3); MEAN CORPUSCULAR HGB CONC 32.3 g/dL (31.7-36.0); MEAN CORPUSCULAR VOLUME 92.6 fL (84.0-98.0); MONOCYTES ABSOLUTE AUTO 0.65 K/uL (0.00-1.00); MONOCYTES PERCENT AUTO 7.2 % (2.0-14.0); NEUTROPHILS ABSOLUTE AUTO 6.96 K/uL (1.40-7.00); NEUTROPHILS PERCENT AUTO 76.6 % (45.0-80.0); PLATELET COUNT,PLT 315 K/uL (150-350); RED BLOOD CELL COUNT 2.44 M/uL (4.33-5.41); RED CELL DISTRIBUTION WIDTH 17.3 % (11.2-14.1); WHITE BLOOD CELL COUNT,WBC 9.1 K/uL (4.0-10.2)
[2024-11-11 18:53] LABS: HEMATOCRIT 22.6 % (39.0-49.0); HEMOGLOBIN 7.3 g/dL (13.1-16.8)
[2024-11-11 19:05] LABS: BLOOD UREA NITROGEN,BUN 13 mg/dL (7-18); C-REACTIVE PROTEIN 6.54 mg/dL (0.05-0.30); CARBON DIOXIDE,CO2 31.7 mmol/L (21.0-32.0); CHLORIDE,CL 97 mmol/L (98-107); CREATININE 2.71 mg/dL (0.51-1.17); GLUCOSE RANDOM 101 mg/dL (70-99); POTASSIUM,K 4.1 mmol/L (3.5-5.1); SODIUM,NA 135 mmol/L (136-145)
[2024-11-11 19:07] LABS: ANION GAP 10.4 meq/L (7-15); ESTIMATED GFR 24 mL/min (>=60)
[2024-11-11] MEDS ORDERED: Norepinephrine Bit/D5W Premix 250 ML IV SCH (19:15)
[2024-11-11 19:17] LABS: ALANINE AMINOTRANSFERASE,ALT 7 U/L (12-78); ALBUMIN 2.2 g/dL (3.4-5.0); ALKALINE PHOSPHATASE 78 IU/L (46-116); ASPARTATE AMNIOTRANSFERASE,AST 20 U/L (15-37); BILIRUBIN TOTAL 0.5 mg/dL (0.2-1.0); PROTEIN TOTAL,TP 6.6 g/dL (6.4-8.2)
[2024-11-11 22:24] VITALS: BP 95/60; PULSE 105
== END 2024-11-11 23:00 ==
LOC: LL.ED 17:56
DX: I95.9 Hypotension, unspecified (principal); R09.02 Hypoxemia; E78.00 Pure hypercholesterolemia, unspecified; I10 Essential (primary) hypertension; Z95.5 Presence of coronary angioplasty implant and graft; K21.9 Gastro-esophageal reflux disease without esophagitis; E11.9 Type 2 diabetes mellitus without complications; Z88.0 Allergy status to penicillin; Z88.1 Allergy status to other antibiotic agents; Z88.8 Allergy status to other drugs, medicaments and biological substances; Z79.02 Long term (current) use of antithrombotics/antiplatelets; Z79.899 Other long term (current) drug therapy; Z79.82 Long term (current) use of aspirin
CPT/HCPCS: 36415; 71045; 80053; 85025; 86140; 93005; 93010; 99284; 99285; J7030

== ENCOUNTER 2024-11-27 17:09 | Emergency (ER) | payer OTHER ==
[2024-11-27 17:52] LABS: BASOPHILS ABSOLUTE AUTO 0.01 K/uL (0.00-0.20); BASOPHILS PERCENT AUTO 0.2 % (0.0-2.0); EOSINOPHILS ABSOLUTE AUTO 0.04 K/uL (0.00-0.50); EOSINOPHILS PERCENT AUTO 0.8 % (0.0-5.0); IMMATURE GRAN ABSOLUTE AUTO 0.01 10^3/uL (0.00-0.04); IMMATURE GRAN PERCENT AUTO 0.2 % (0.0-0.4); LYMPHOCYTES ABSOLUTE AUTO 0.55 K/uL (0.50-3.50); LYMPHOCYTES PERCENT AUTO 11.5 % (10.0-50.0); MONOCYTES ABSOLUTE AUTO 0.38 K/uL (0.00-1.00); MONOCYTES PERCENT AUTO 7.9 % (2.0-14.0); NEUTROPHILS ABSOLUTE AUTO 3.80 K/uL (1.40-7.00); NEUTROPHILS PERCENT AUTO 79.4 % (45.0-80.0); PLATELET COUNT,PLT 157 K/uL (150-350); RED BLOOD CELL COUNT 3.72 M/uL (4.33-5.41); RED CELL DISTRIBUTION WIDTH 18.3 % (11.2-14.1); WHITE BLOOD CELL COUNT,WBC 4.8 K/uL (4.0-10.2)
[2024-11-27 18:08] LABS: ALANINE AMINOTRANSFERASE,ALT 6 U/L (12-78); ASPARTATE AMNIOTRANSFERASE,AST 28 U/L (15-37); BILIRUBIN TOTAL 1.8 mg/dL (0.2-1.0); BLOOD UREA NITROGEN,BUN 19 mg/dL (7-18); CARBON DIOXIDE,CO2 25.2 mmol/L (21.0-32.0); CHLORIDE,CL 97 mmol/L (98-107); GLUCOSE RANDOM 100 mg/dL (70-99); POTASSIUM,K 4.2 mmol/L (3.5-5.1); PROTEIN TOTAL,TP 6.1 g/dL (6.4-8.2); SODIUM,NA 133 mmol/L (136-145)
[2024-11-27 18:11] LABS: CREATININE 4.45 mg/dL (0.51-1.17); ESTIMATED GFR 13 mL/min (>=60)
[2024-11-27 18:14] LABS: PRO B-TYPE NATRIUR PEPT,BNPPRO > 35000 pg/mL (0-125)
[2024-11-27] MEDS ORDERED: Naloxone 0.4 MG/ML SDV IVPUSH PRN (18:46)
[2024-11-27] MEDS: fentaNYL 50 MCG/ML SDV IVPUSH ONE (18:50)
[2024-11-27] MEDS: Sodium Chloride 0.9% 10 ML Syringe FLUSH PRN (18:51)
[2024-11-27 19:55] VITALS: BP 121/68; PULSE 84
== END 2024-11-27 20:10 ==
LOC: LL.ED 17:09
DX: R53.1 Weakness (principal); I10 Essential (primary) hypertension; E78.00 Pure hypercholesterolemia, unspecified; K21.9 Gastro-esophageal reflux disease without esophagitis; E11.9 Type 2 diabetes mellitus without complications; Z99.2 Dependence on renal dialysis; Z95.5 Presence of coronary angioplasty implant and graft; Z88.0 Allergy status to penicillin; Z88.8 Allergy status to other drugs, medicaments and biological substances; Z79.82 Long term (current) use of aspirin; Z79.899 Other long term (current) drug therapy; Z79.02 Long term (current) use of antithrombotics/antiplatelets
CPT/HCPCS: 36415; 80053; 83605; 83735; 83880; 84484; 85025; 87040; 93005; 93010; 96374; 99284; 99285; A9270; J3010